=== PATIENT | female | born 1970 | race Caucasian/White ===

== ENCOUNTER 2016-12-05 17:30 | Inpatient (IN) | payer OTHER ==
[~2016-12-05] VITALS: Ht 165.1 cm; Wt 102.1 kg
[~2016-12-05 17:30] MED LIST: ABILIFY10 M1 PO; ABILIFY15 M1 PO; ALPRAZOLAM1 MG PO; AMBIEN10 M1 PO; ASPIRIN EC81 M1 PO; BENTYL20 MG PO; BUTALB-ACETAMI1 EAC1 PO; CARVEDILOL3.125 M1 PO; CARVEDILOL3.125 MG PO; CRESTOR40 M2 PO; CRESTOR40 MG PO; DILAUDID2 M1 PO; DILAUDID2 MG PO; DONNATAL1 TAB PO; FLEXERIL10 MG PO; FLUTICASON0.05 MG/A2 NAS; IMITREX50 M1 PO; IMITREX50 MG PO; INVOKANA300 M1 PO; ISOSORBIDE MONO30 M1 PO; LEVSIN-SL0.125 MG SL; LISINOPRIL20 MG PO; LISINOPRIL5 M1 PO; METHOCARBAMOL500 M1 PO; METOPROLOL SUC100 M1 PO; MOBIC15 M1 PO; MULTIPLE VITAM1 EAC2 PO; NAPROSYN375 MG PO; NAPROXEN375 M2 PO; NITRO-BID OINT0.5 GM TOP; NITROGLYCERIN0.4 MG SL; NITROSTAT0.4 M1 SL; PERCOCET 325 MG1 TA2 PO; PERCOCET 325 MG1 TA3 PO; PERCOCET 5-3251 EACH PO; PRAZOSIN HCL1 M1 PO; PRAZOSIN HCL2 M1 PO; PROAIR HFA0.09 MG/Ac INH; REGLAN10 MG PO; RISPERIDONE0.5 M1 PO; RISPERIDONE1 M1 PO; SERTRALINE HYD100 MG PO; SIMVASTATIN40 M1 PO; SKELAXIN800 M1 PO; TOPIRAMATE200 MG PO; TRAMADOL HYDROC50 MG PO; TRAMADOL50 MG PO; ULTRAM50 M1 PO; VENLAFAXINE H37.5 MG PO; VENLAFAXINE HYD75 M1 PO; VICODIN 5-3001 EACH PO; VICODIN5-300 PO; XANAX0.25 M1 PO; ZOFRAN ODT4 M1 SL; ZOFRAN ODT4 MG SL; ZOLOFT100 M1 PO; ZOLPIDEM TARTRA10 MG PO
--- NOTE | 2016-12-05 17:56 | NUR ---
Informed waiting has been performed.
--- NOTE | 2016-12-05 17:56 | NUR ---
TRIAGE: PT TO ER WITH C/C SHARP HEAD PAIN AND NUMBNESS TO L SIDE OF BODY WITH L FACIAL DROOP. REPORTS NUMBNESS/TINGLING TO ENTIRE L SIDE OF BODY. STATES HAD SIMILIAR EPISODE SEPTEMBER 2016 BUT WAS ON THE RIGHT SIDE OF HER BODY, WAS ADMITTED TO [facility] AT THAT. WAS ADVISED BY MD'S THAT IT MIGHT BE A COMPLICATED MIGRAINE AND TO RETURN TO ER IF EVER HAPPENED AGAIN. PT CURRENTLY ON DAY 27 OF 30 DAY HALTER MONITOR FOR ?ARRHYTHMIA. ALSO COMPLAINS OF FEELING DIZZY AND LIGHTHEADED. PT WITH UNEQUAL SMILE AND WEAK L HAND GRASP AT TRIAGE. NO DRIFT WHEN HOLDING ARMS OUT. EKG DONE IN [facility] PRIOR TO TRIAGE AND SHOWN TO DR GARSIA.
--- NOTE | 2016-12-05 17:57 | NUR ---
PT BROUGHT FROM TRIAGE DIRECT TO [facility] RM 6 DISCUSSED PATIENT WITH BOTH JOSEP MINOR AND DR GARSIA
--- NOTE | 2016-12-05 18:16 | ED NEURO DEFICIT/STROKE ---
History of Present Illness General Chief Complaint: General Adult Stated Complaint: JIN/DIZZNESS Source: patient, family Exam Limitations: no limitations Vital Signs & Intake/Output Vital Signs & Intake/Output Vital Signs Date Time Temp Pulse Resp B/P Pulse O2 O2 Flow FiO2 Ox Delivery Rate 12/05 2019 96.7 69 18 128/67 98 Room Air 12/05 1748 98.1 81 20 96/64 98 Room Air Allergies Coded Allergies: No Known Allergies (08/06/16) Reconcile Medications Alprazolam (Xanax) 0.25 MG TABLET 1 TAB PO BID PRN anxiety (Reported) Aripiprazole (Abilify) 15 MG TABLET 1 TAB PO QAM MENTAL HEALTH (Reported) Aspirin (Ecotrin) 81 MG TABLET.DR 1 TAB PO DAILY HEART HEALTH (Reported) Isosorbide Mononitrate (Isosorbide Mononitrate ER) 30 MG TAB.ER.24H 1 TAB PO DAILY HEART (Reported) Lisinopril 5 MG TABLET 1 TAB PO DAILY Hypertension/CHF Metoprolol Succinate (Metoprolol Succinate XL) [address] 1 TAB PO DAILY blood pressure Multivitamin (Multiple Vitamins) 1 EACH TABLET 1 TAB PO DAILY SUPPLEMENT ( Reported) Naproxen 375 MG TABLET 1 TAB PO PRN PAIN (Reported) with food Nitroglycerin (Nitrostat) 0.4 MG TAB.SUBL 1 TAB SL AD PRN CHEST PAIN ( Reported) 1st sign of attack; may repeat every 5 minutes until relief; if pain persists after 3 tablets in 15 minutes, prompt medical att Prazosin HCl 2 MG CAPSULE 2 CAP PO QPM SLEEP (Reported) Propranolol HCl 20 MG TABLET 1 TAB PO TID PRN ANXIETY (Reported) Rosuvastatin Calcium (Crestor) 40 MG TABLET 1 TAB PO DAILY CHOLESTEROL ( Reported) Sertraline HCl (Zoloft) 100 MG TABLET 2 TAB PO DAILY DEPRESSION (Reported) Sumatriptan Succinate (Imitrex) 50 MG TABLET 1 TAB PO AD Migraine take one tab at the onset of the headache Take a second tab 2 hrs After if migraine persists and call PCP/neurologist Topiramate 200 MG TABLET 1 TAB PO QPM MIGRAINES (Reported) Zolpidem Tartrate 10 MG TAB 1 TAB PO QPM SLEEP (Reported) Triage Note: TRIAGE: PT TO ER WITH C/C SHARP HEAD PAIN AND NUMBNESS TO L SIDE OF BODY WITH L FACIAL DROOP. REPORTS NUMBNESS/TINGLING TO ENTIRE L SIDE OF BODY. STATES HAD SIMILIAR EPISODE SEPTEMBER 2016 BUT WAS ON THE RIGHT SIDE OF HER BODY, WAS ADMITTED TO [facility] AT THAT. WAS ADVISED BY MD'S THAT IT MIGHT BE A COMPLICATED MIGRAINE AND TO RETURN TO ER IF EVER HAPPENED AGAIN. PT CURRENTLY ON DAY 27 OF 30 DAY HALTER MONITOR FOR ?ARRHYTHMIA. ALSO COMPLAINS OF FEELING DIZZY AND LIGHTHEADED. PT WITH UNEQUAL SMILE AND WEAK L HAND GRASP AT TRIAGE. NO DRIFT WHEN HOLDING ARMS OUT. EKG DONE IN [facility] PRIOR TO TRIAGE AND SHOWN TO DR JAMA. Triage Nurses Notes Reviewed? yes : No Patient currently breastfeeds: No HPI: 46-year-old female arrived to triage to room 6 for evaluation of a left-sided weakness, left-sided facial droop with a headache. Chevy reports that around 2:30 3:00 this afternoon she started with left sided facial droop that lasted about a half an hour and then she developed sharp migraine type pain to the left side of her head. Then she developed left sided tingling arm and leg that has continued since her admission here in the emergency department. She does also feel some weakness to that side. She was able to ambulate with no issues. She does have nausea but no vomiting, photophobia and phonophobia like typical migraines that she has had in the past. She has a history of the same but occurred to the right side of her body. Never seen a neurologist to determine if she had stroke, TIA or complex migraines. Chevy has a history of hypertension, hyperlipidemia, CAD status post bypass surgery 1. She is wearing a 30 day event monitor to evaluate for paroxysmal atrial fibrillation to possibly contributing to event that happened last year. She denies any chest pain, shortness of breath, lightheaded, or palpitations but does have some dizziness. (IVÁN STANFORD APRN) Past History Travel History Traveled to [place] past 21 day No Medical History Any Pertinent Medical History? 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 FATHER FH: CAD (coronary artery disease) FH: CHF (congestive heart failure) FH: diabetes mellitus FH: myocardial infarction Relation not specified for: FH: myocardial infarction Hx Contributory? No (IVÁN STANFORD APRN) Review of Systems Review of Systems Constitutional: Denies: no symptoms. EENTM: Denies: no symptoms. Respiratory: Denies: no symptoms. Cardiovascular: Denies: no symptoms. GI: Denies: no symptoms. Genitourinary: Denies: no symptoms. Musculoskeletal: Denies: no symptoms. Skin: Denies: no symptoms. Neurological/Psychological: Reports: see HPI, ataxia, headache, numbness, paresthesia. Hematologic/Endocrine: Denies: no symptoms. Immunologic/Allergic: Denies: no symptoms. (IVÁN STANFORD APRN) Physical Exam Physical Exam General Appearance: well developed/nourished, no apparent distress, alert, awake , comfortable Head: atraumatic, normal appearance Eyes: Bilateral: normal appearance, PERRL, EOMI. Ears, Nose, Throat: normal ENT inspection, moist mucous membrane, hearing grossly normal Neck: normal inspection, supple, full range of motion Respiratory: normal breath sounds, chest non-tender, no respiratory distress Cardiovascular: regular rate/rhythm Peripheral Pulses: 2+ carotid (R), 2+ carotid (L), 2+ radial (R), 2+ radial (L) Gastrointestinal: normal bowel sounds, soft, non-tender Back: normal inspection, normal range of motion Psychiatric: awake, alert, oriented x 3 Cranial Nerves: normal hearing, normal speech, PERRL, facial droop Coordination/Gait: normal finger to nose, normal gait Motor/Sensory: motor deficit (LEFT) Skin: intact, normal color, warm/dry Core Measures CVA/TIA Diagnosis: Yes NIH Stroke Scale: Total 1 Date Last Known Well: 12/05/16 Time Last Known Well: 1500 Neurological S/S of CVA: Facial Hemiparesis, Weakness of Limb Symptom Start Date: 12/05/16 Symptom Start Time: 1500 Comment: sympomts resolving spoke to Dr. Wagner- no need for TPA Severe Sepsis Present: No Septic Shock Present: No Bedside Dysphagia Screen Bedside Swallow Eval Done: Yes Result of Evaluation: Pass (HIEN CAR,IVÁN) Progress Differential Diagnosis: Jama's Palsy, electrolyte imbalance, migraine JIN, stroke Plan of Care: Orders Procedure Date/time Status Regular Diet 12/06 B Active OXYGEN SETUP (GEN) 12/05 2019 Active Saline Lock 12/05 2019 Active Admit to inpatient 12/05 2019 Active Patient Data 12/05 2019 Active Vital Signs 12/05 2019 Active Activity/Ambulation 12/05 2019 Active Code Status 12/05 2019 Active Saline Lock 12/05 180 Active Telemetry/Wound Care Technician 12/05 1805 Active TROPONIN LEVEL 12/05 180 Complete COMPREHENSIVE METABOLIC PANEL 12/05 180 Complete CBC WITHOUT DIFFERENTIAL 12/05 1805 Complete EKG 12/05 1732 Active Laboratory Tests 12/05/16 1843: Anion Gap 16, Estimated GFR > 60, BUN/Creatinine Ratio 21.4, Glucose 92, Calcium 9.4, Total Bilirubin 0.4, AST 20, ALT 26, Alkaline Phosphatase 68, Troponin I < 0.01, Total Protein 7.2, Albumin 4.1, Globulin 3.1, Albumin/Globulin Ratio 1.3, CBC w Diff NO MAN DIFF REQ, RBC 4.36, MCV 87.3, MCH 29.1, RDW 14.5, MPV 7.2 L, Gran % 71.3, Lymphocytes % 18.8 L, Monocytes % 5.4, Eosinophils % 4.4, Basophils % 0.1, Absolute Granulocytes 6.4, Absolute Lymphocytes 1.7, Absolute Monocytes 0.5, Absolute Eosinophils 0.4, Absolute Basophils 0, PUBS MCHC 33.4 Diagnostic Imaging: Viewed by Me: CT Scan. Discussed w/RAD: CT Scan. Initial ED EKG: NORMAL SINUS RHYTHM, NONSPECIFIC st-t WAVE CHANGES, t-WAVE INVERSIONS NOTED IN ANTERIOR SEPTAL Prior EKG: changed Comments: PATIENT: CHEVY LEÓN PRESENT AGE: 46 PATIENT ACCOUNT NO: [id number] : 72 LOCATION: [facility] ORDERING PHYSICIAN: IVÁN STANFORD APRN SERVICE DATE: 12/05/16 EXAM TYPE: CAT - CT HEAD WO IV CONTRAST EXAMINATION: CT HEAD WITHOUT CONTRAST CLINICAL INFORMATION: Left-sided weakness. COMPARISON: Head CT 10/09/2016. TECHNIQUE: Contiguous axial imaging was performed from the skull base to vertex without intravenous administration of contrast. DLP: 672 mGy-cm. FINDINGS: There is no evidence of acute intracranial hemorrhage or territorial infarction. No abnormal mass effect or midline shift is seen. Gonzalez to white matter differentiation is well preserved. No extra-axial fluid collections are identified. The ventricles are normal in size. There is no new abnormal attenuation within the brain parenchyma. The osseous structures and soft tissues are normal. The mastoid air cells are well aerated. Mild paranasal sinus mucosal thickening. IMPRESSION: No acute intracranial pathology. 8 PM spoke to neurology Dr. Wagner who will evaluate the patient tomorrow in the hospital. He agrees that she wasn't a TPA candidate possibility a complex migraine but TIA cannot be excluded based on cardiovascular history. Aspirin 325 mg 1 given and she will be admitted to telemetry. Call made to hospital list 2 waiting for call back. [address] Trinh and MOD, admitted to tele for TIA, ECG changes. Patient has been aware of admission. Imitrex times one will be given for continuance of headache. No change with Toradol, Benadryl and Zofran. Nausea gone photophobia gone. case has been discussed with Dr. Jama and Dr. tavarez. (IVÁN STANFORD APRN) Departure Departure Time of Disposition: 2016 Disposition: STILL A PATIENT Condition: Stable Clinical Impression Primary Impression: TIA (transient ischemic attack) Qualifiers: Transient cerebral ischemia type: other Qualified Code: G45.8 - Other transient cerebral ischemic attacks and related syndromes Secondary Impressions: Acute electrocardiogram changes Referrals: ASHLY LIVE,ARIEL Marley (PCP/Family) Departure Forms: Customer Survey General Discharge Information Admission Note Spoke With: INDIO TRINH MD Documentation of Exam: Documentation of any treatments & extenuating circumstances including Concerns Regarding Discharge (functional status, medication knowledge or non-compliance, living conditions, etc.) that warrant an admission rather than observation: admitted to tele for TIA, ECG changes neuro and cardiology consults. Called neuro already aspirin 1 given swallow eval passed. (MACI STANFORD APRN PA/MAIL PROCESSING EQUIPMENT MECHANIC Co-Sign Statement Statement: ED Attending supervision documentation- x I saw and evaluated the patient. I have also reviewed all the pertinent lab results and diagnostic results. I agree with the findings and the plan of care as documented in the PA's/MAIL PROCESSING EQUIPMENT MECHANIC's documentation. [] I have reviewed the ED Record and agree with the PA's/MAIL PROCESSING EQUIPMENT MECHANIC's documentation. [] Additions or exceptions (if any) to the PAs/MAIL PROCESSING EQUIPMENT MECHANIC's note and plan are summarized below: [] (CHAD LIVE,LUPIS)
--- NOTE | 2016-12-05 18:36 | NUR ---
PT RECIEVED TO ROOM 6. SEEN BY IVÁN SMITH. CURRENTLY IN CT SCAN
[2016-12-05] MEDS ORDERED: PROPRANOLOL HCL20 M1 PO (18:42)
--- NOTE | 2016-12-05 18:43 | CT SCAN REPORT ---
EXAMINATION: CT HEAD WITHOUT CONTRAST CLINICAL INFORMATION: Left-sided weakness. COMPARISON: Head CT 10/09/2016. TECHNIQUE: Contiguous axial imaging was performed from the skull base to vertex without intravenous administration of contrast. DLP: 672 mGy-cm. FINDINGS: There is no evidence of acute intracranial hemorrhage or territorial infarction. No abnormal mass effect or midline shift is seen. Gonzalez to white matter differentiation is well preserved. No extra-axial fluid collections are identified. The ventricles are normal in size. There is no new abnormal attenuation within the brain parenchyma. The osseous structures and soft tissues are normal. The mastoid air cells are well aerated. Mild paranasal sinus mucosal thickening. IMPRESSION: No acute intracranial pathology.
--- NOTE | 2016-12-05 18:52 | NUR ---
LABS DRAWN AND SENT SST, LAV, BLUE, AND HEBERT SENT
--- NOTE | 2016-12-05 18:56 | NUR ---
RETURNED FROM CT SCAN. LABS DRAWN. IV PLACED AND MEDS AND IVF BOLUS GIVEN,.IVÁN [employer] DIRECTOR IN TO DISCUSS RESULTS OF CT SCAN. PT CONTINUES TO HAVE HEAD ACHE AND SLIGHT RIGHT SIDE WEAKNESS AND NAUSEA
[2016-12-05 19:07] LABS: ABSOLUTE BASOPHIL COUNT 0 /CUMM (0.0-0.2); ABSOLUTE EOSINOPHIL COUNT 0.4 /CUMM (0.0-0.7); ABSOLUTE GRANULOCYTE CT 6.4 /CUMM (1.4-6.5); ABSOLUTE LYMPH COUNT 1.7 /CUMM (1.2-3.4); ABSOLUTE MONOCYTE COUNT 0.5 /CUMM (0.10-0.60); BASOPHIL % 0.1 % (0.0-2.0); EOSINOPHIL % 4.4 % (0-5); GRANULOCYTE % 71.3 % (42.2-75.2); HEMATOCRIT 38.1 % (37-47); MEAN CORPUSCULAR HGB 29.1 PG (27.0-31.0); MEAN CORPUSCULAR HGB CONC 33.4 G/DL (33.0-37.0); MEAN CORPUSCULAR VOLUME 87.3 FL (81.0-99.0); MEAN PLATELET VOLUME 7.2 FL (7.4-10.4); PLATELET COUNT 286 /CUMM (130-400); RBC DISTRIBUTION WIDTH 14.5 % (11.5-14.5); RED BLOOD CELL CT 4.36 /CUMM (4.20-5.40)
--- NOTE | 2016-12-05 20:20 | NUR ---
PT SEEN BY IVÁN SMITH AND PLAN TO ADMIT TO HOSPITAL DISCUSSED. PT REMAINS WITH SOME SLIGHTLY SLOW, SLURRED SPEECH AND RIGHT FACE TINGLING. GRILL PREP COOK EQUAL AND LEG STRENGHT EQUAL. SMILE EQUAL.ALERT AND ORIENTED. CONTINUES TO COMPLAIN OF HEADACHE.STATES TORADOL HELPED HEAD ACHE FOR SHORT WHILE BUT IT HAS RETURNED.
--- NOTE | 2016-12-05 21:03 | NUR ---
PT GIVEN ASPRIN ORDERED, GIVEN IMITREX FOR HEADACHE AND GIVEN ZOFRAN FOR NAUSEA. PT SITTING UP ON STRETCHER, USING CELL PHONE. HSB AT BEDSIDE
--- NOTE | 2016-12-05 21:48 | NUR ---
PT HAS BED 188-1
--- NOTE | 2016-12-05 22:14 | History & Physical ---
JULIUS LIVE,[facility] 12/05/16 2213: General Information and HPI MD Statement: I have seen and personally examined CHEVY LEÓN and documented this H&P. The patient is a 46 year old F who presented with a patient stated chief complaint of left sided weakness and headache. Source of Information: family Exam Limitations: no limitations History of Present Illness: This is a 46-year-old female with past medical history of CAD status post four- vessel CABG 2000 WOO to LAD, PTSD, attention, PTSD, agoraphobia, history of frequent episodes of complex migraine, and a recent admission to [facility] in September 2016 for right-sided weakness and headache, presents to the ED for evaluation of left-sided weakness, and facial droop. Patient states that around 2-3pm while seated, she developed a unilateral right- sided headache which was then accompanied by left-sided facial droopiness, and slurred speech. Patient in reports a similar neurological episode in September, which affected the right side rather than the left. Patient states that her left facial droop and slurred speech was noticeable to his son. She also reports tingling sensation on left side and numbness. Pt continued to have this neurological complaints from time onset of around 2-3pm till 5pm when she was examined at the ED. Patient denied any loss of consciousness, seizure-like activities, postictal confusion, bladder or urinary incontinence. Patient denies any chest pain palpitation, fever, chills, any recent head injury , abdominal pain, or dysuria. Of note, after last admission, patient was suppose to f/u with neurology for evaluation of her complex migraine. She states that due to misplacing the neurologist refferal contact information, she was not able to make appointment . She did follow-up with cardiology and was given a 30 day Holter monitor (she is on day 27). Patient also reports using sumatriptan for migraines which was prescribed by primary care physician, she notes that since September she's had about 10 episodes of migraine, which each episode being alleviated by 2 doses of the sumatriptan. Allergies/Medications Allergies: Coded Allergies: No Known Allergies (08/06/16) Past History Travel History Traveled to [place] past 21 day No Medical History Neurological: migraine, ?COMPLICATED MIGRAINES EENT: NONE Cardiovascular: CAD, hypertension, hyperlipidemia, myocardial infarction Respiratory: asthma Gastrointestinal: NONE Hepatic: cholelithiasis Renal: NONE Musculoskeletal: NONE Psychiatric: anxiety, depression, PTSD Endocrine: NONE Blood Disorders: NONE Cancer(s): NONE NEUROLOGIST/Reproductive: endometriosis History of MRSA: No History of VRE: No History of CDIFF: No Surgical History Surgical History: appendectomy, CABG, cholecystectomy, removal of sinus polyps, hysterectomy and oopherectomy of right ovary Past Family/Social History Family History Relations & Conditions if any MOTHER FH: myocardial infarction, Onset: at 53. FATHER FH: CAD (coronary artery disease) FH: CHF (congestive heart failure) FH: diabetes mellitus FH: myocardial infarction Relation not specified for: FH: myocardial infarction Psychosocial History Who Do You Live With? spouse, child Services at Home: None Primary Language: Haitian ETOH Use: occasional use Illicit Drug Use: denies illicit drug use Functional Ability ADLs Independent: dressing, eating, toileting, bathing. Ambulation: independent IADLs Independent: shopping, housework, finances, food prep, telephone, transportation , medication admin. Review of Systems Review of Systems Constitutional: Denies: diaphoresis, fever, malaise. EENTM: Reports: visual changes. Denies: eye tearing, icterus. Cardiovascular: Denies: chest pain, edema, orthopena, palpitations, peripheral edema, syncope. Respiratory: Denies: cough, hemoptysis, short of breath, sputum production. GI: Denies: bloating, diarrhea, distention. Genitourinary: Denies: dysuria, hematuria, hesitation. Musculoskeletal: Denies: gout, joint pain, joint swelling, muscle pain, muscle stiffness. Skin: Denies: change in hair/nails, erythema, jaundice. Neurological/Psychological: Denies: depressed, dementia, emotional problems. Exam & Diagnostic Data Last 24 Hrs of Vital Signs/I&O Vital Signs Date Time Temp Pulse Resp B/P Pulse O2 O2 Flow FiO2 Ox Delivery Rate 12/05 2257 97.6 78 20 122/68 97 Room Air 12/05 2235 77 16 134/780 97 Room Air 12/05 2103 Room Air 12/05 2019 96.7 69 18 128/67 98 Room Air 12/05 1748 98.1 81 20 96/64 98 Room Air Physical Exam General Appearance Alert, Oriented X3, Cooperative Skin No Rashes, No Breakdown, No Significant Lesion HEENT Atraumatic, PERRLA, EOMI, Mucous Membr. moist/pink Neck Supple, No JVD, No thryomegaly, +2 Carotid Pulse wo Bruit Lymphatic Cervical nl Cardiovascular Regular Rate, Normal S1, Normal S2 Lungs Clear to Auscultation, Normal Air Movement Abdomen Normal Bowel Sounds, Soft, No Tenderness Assessment/Plan Assessment: This a 46-year-old female with a history of TIA, complete get her migraines, CAD requiring CABG, PTSD presents with left sided neurological deficits that were preceded by right-sided unilateral headache. Impression * Left-sided weakness. The episodes were transient, as later when patient was examined was not found to have any neurological deficit. In the setting of a patient with a history of complex migraine this could possibly be a manifestation of her migraines. The transient nature of her symptoms with no CT findings of ischemic events could aslo possibly suggests TIA and less likely a CVA. Partial Seizures could also present with left-sided weakness. However, unlikely as patient did not manifest any other seizure symptoms. Pt does have an extensive cardiac history, it could be possible patientt has some arrythmias that exposes patient to increased risk for TIA/CVA. Patient already has a holter monitor for 27 days which will require assesmen by cardiology. Plan * Admit to telemetry for close cardiac monitoring * Neurochecks every 4h * Serial troponins and EKG * Neurology consult * cardiac consult * We'll continue home sumatriptan as needed for abortive therapy * Zofran every 4-6 hours for nausea * Continue statin * Fasting lipid As Ranked By This Provider Problem List: 1. Migraine 2. TIA (transient ischemic attack) Qualifiers Transient cerebral ischemia type: other Qualified Code: G45.8 - Other transient cerebral ischemic attacks and related syndromes Core Measures/Miscellaneous Acute Coronary Syndrome ACS Diagnosis: No Cerebrovascular Accident CVA/TIA Diagnosis: Yes Date Last Known Well: 12/05/16 Time Last Known Well: 1500 Neurological S/S of CVA: Facial Hemiparesis, Weakness of Limb Symptom Start Date: 12/05/16 Symptom Start Time: 1500 Bedside Swallow Eval Done: Yes Result of Evaluation: Pass LDL Assessed Within 24 Hours: Yes Currently on Statin: Yes Congestive Heart Failure CHF Diagnosis: No Venous Thromboembolism VTE Risk Factors: Age > 40 VTE Prophylaxis Ordered Inpt: Mechanical (ALPS/TEDS) [facility] prophylaxis d/t: No contraindications No VTE Pharm Prophylaxis d/t: Medical contraindication VTE Diagnosis: No VTE Type: NONE VTE Confirmed by (Test): NONE Severe Sepsis Severe Sepsis Present: No Septic Shock Septic Shock Present: No Miscellaneous Documentation Attending Case Discussed With: GAYATHRI LIVE[facility] Primary Care Physician: ASHLY LIVE,ARIEL Marley Patient sees these Specialists nitriles lab technician neurologist Level of Patient Care: Telemetry [facility] 12[facility]05[facility]16 2237: Attending MD Review Statement Attending Statement Attending MD Statement: examined this patient, discuss w/resident/PA/JUNIOR ART DIRECTOR, agreed w/resident/PA/JUNIOR ART DIRECTOR Attending Assessment/Plan: 46 yo morbidly obese F with h/o HTN, CAD s/p VA s/p single vessel bypass, depression, migraine, with recent admission in Sep 2016 for complex migraine with transient neuro deficits, is here with similar episode of right sided headache followed by left facial droop, slurred speech, left sided tingling/ numbness and blurring of vision that seems to have resolved. Patient reports, she did not follow up with [facility] or [facility] neurology for possible botox inj. She does report last migraine episode was 2 days prior that resolved with Imitrex. Of note, she has a 30-day Holter monitor (3 days remaining) placed by Dr. Goff. VSS. Neuro exam nonfocal. Labs unremarkable. CT head neg. EKG: TWI in V2-V6. Trop neg. 1. Complicated migraine with transient neurological deficits, however cannot rule out TIA. Neurochecks, no need to repeat carotid doppler Neuro consult, migraine management with Imitrex, fioricet and zofran. 2. Acute EKG changes, patient asymptomatic. Serial EKG and troponin, obtain Echo and Cardio consult. DVT ppx Lovenox. Full code. LULA VELAZQUEZ 12/06/16 0615: General Information and HPI Allergies/Medications Home Med list Alprazolam (Xanax) 0.25 MG TABLET 1 TAB PO BID PRN anxiety (Reported) Aripiprazole (Abilify) 15 MG TABLET 1 TAB PO QAM MENTAL HEALTH (Reported) Aspirin (Ecotrin) 81 MG TABLET.DR 1 TAB PO DAILY HEART HEALTH (Reported) Ibuprofen (Advil) 200 MG CAPSULE 3 TAB PO DAILY PRN SEVERE PAIN Lisinopril 5 MG TABLET 1 TAB PO DAILY Hypertension/CHF Magnesium 200 MG TABLET 1 TAB PO DAILY HEADACHE Metoprolol Succ XL (Toprol XL) 100 MG TAB.ER.24H 1 TAB PO BID MIGRAINE Multivitamin (Multiple Vitamins) 1 EACH TABLET 1 TAB PO DAILY SUPPLEMENT ( Reported) Nitroglycerin (Nitrostat) 0.4 MG TAB.SUBL 1 TAB SL AD PRN CHEST PAIN ( Reported) 1st sign of attack; may repeat every 5 minutes until relief; if pain persists after 3 tablets in 15 minutes, prompt medical att Omeprazole 20 MG CAPSULE.DR 1 CAP PO SI acid reflux Take one tablet prior to taking the ibuprofen tablet. Oxycodone HCl/Acetaminophen (Percocet 10-325 MG Tablet) 10 MG-325 MG TABLET 1 TAB PO 4 TIMES/DAY severe pain Prazosin HCl 2 MG CAPSULE 2 CAP PO QPM SLEEP (Reported) Rosuvastatin Calcium (Crestor) 40 MG TABLET 1 TAB PO DAILY CHOLESTEROL ( Reported) Sertraline HCl (Zoloft) 100 MG TABLET 2 TAB PO DAILY DEPRESSION (Reported) Sumatriptan Succinate (Imitrex) 50 MG TABLET 1 TAB PO AD Migraine take one tab at the onset of the headache Take a second tab 2 hrs After if migraine persists and call PCP/neurologist Topiramate (Qudexy XR) 150 MG CAP.SPR.24 1 TAB PO BID MIGRAINE Ubidecarenone (Coq-10) 100 MG CAPSULE 1 CAP PO DAILY SUPPLEMENT Zolpidem Tartrate 10 MG TAB 1 TAB PO QPM SLEEP (Reported) Resident Review Statement Resident Statement: examined this patient, discussed with web marketing intern, agreed with web marketing intern, discussed with family, discussed with nursing, reviewed images Other Findings: Mrs León is a 46-year-old lady with a PMH of HTN, CAD, VA 2 (2000) , s/p single vessel bypass surgery for LAD occlusion, depression, endometriosis, migraines and anxiety who presents with complaints of new onset neurological deficits. She was last admitted to [facility] in September 2016, treated for, gait of migraine with neurologic deficits, started on Imitrex and recommendations for follow-up with Dr. Zelaya for possible Botox therapy. Unfortunately she has been unable to follow up with a neurologist since that was prescribed approximately 20 pills of Imitrex which she has used on 10 different occasions for severe migraines. This afternoon at approximately 2:30 PM she had sudden onset of right sided headache she describes as a sledgehammer sensation, left eye blurred vision that lasted approximately 30 minutes, followed by left-sided facial drooping, left upper and lower extremity numbness/tingling that resolved some time around 7:30 while in the ED. She had followed up with her nitriles lab technician Dr. Goff and has had a very difficult monitor which she takes back in 3 days. ROS: (+) Dizziness, rapid breathing, slurred speech, nausea during this time. She denies any fevers, chills, choking sensation, palpitations, chest pain, vomiting, abdominal pain loss of bowel/bladder control. VS: BP 96/64, HR 81, RR 20, SPO2 98% on RA, T 98.1 PE: AAO 3, CN 3-12 intact, hypersensitivity to touch of left face, strength 5/5 bilateral upper and lower extremities, sensation intact bilateral lower extremities, negative Babinski. RRR, normal S1/S2. Normal bowel sounds, nontender Pertinent labs: WBC 9.0, H&H 12.7/30.1, sodium 144, potassium 3.8, BUN/Cr 15/0.7 , glucose 92 CT head: No acute intracranial pathology Problem list: 1. Complicated migraine 2. TIA/CVA 3. CAD s/p VA: Currently on a Holter monitor Plan: * Admit to telemetry for continuous cardiac monitoring * Seria EKG/trop * AM cardiology consult for holter monitor interrogation * Neurology consult in the AM * Repeat Echo * Lipid panel in the AM * Continue all her home cardiac medications * DVT prophylaxis: ALPs and transition to lovenox in the AM if no concern for intracranial bleed * Code status: Full code
--- NOTE | 2016-12-05 22:20 | NUR ---
REPORT CALLED TO DANAE ON TELE FLOOR. HOUSE STAFF HERE TO EVAL PT. WILL TRANSFER TO TELE WHEN HOUSE STAFF DONE SEEING PT
--- NOTE | 2016-12-05 22:35 | Admission Certification ---
Admission Certification Certification Statement - As attending physician, I certify that at the time of - admission, based on clinical presentation, severity of - symptoms, need for further diagnostic testing and - therapeutic interventions, and risk of adverse outcomes - without in-hospital treatment, in my clinical assessment, - this patient requires an acute hospital stay for a minimum - of two nights or longer. I have also considered psychsocial - factors such as support system, advanced age, financial - issues, cognitive issues, and failed out-patient treatments, - past re-admission history, safety of patient, and lack of - compliance as applicable. Specific rationale supporting this admission is: Complicated migraine vs. TIA. Acute EKG changes.
[2016-12-05 22:57] VITALS: BP 122/68
[2016-12-06 06:57] LABS: ABSOLUTE BASOPHIL COUNT 0 /CUMM (0.0-0.2); ABSOLUTE EOSINOPHIL COUNT 0.5 /CUMM (0.0-0.7); ABSOLUTE LYMPH COUNT 1.8 /CUMM (1.2-3.4); ABSOLUTE MONOCYTE COUNT 0.5 /CUMM (0.10-0.60); BASOPHIL % 0.6 % (0.0-2.0); EOSINOPHIL % 5.9 % (0-5); HEMATOCRIT 35.2 % (37-47); MEAN CORPUSCULAR HGB 29.6 PG (27.0-31.0); MEAN CORPUSCULAR HGB CONC 33.8 G/DL (33.0-37.0); MEAN CORPUSCULAR VOLUME 87.7 FL (81.0-99.0); MEAN PLATELET VOLUME 7.4 FL (7.4-10.4); PLATELET COUNT 249 /CUMM (130-400); RBC DISTRIBUTION WIDTH 14.2 % (11.5-14.5); RED BLOOD CELL CT 4.01 /CUMM (4.20-5.40); WHITE BLOOD CELL COUNT 7.8 /CUMM (4.8-10.8)
[2016-12-06 08:08] VITALS: BP 102/62
--- NOTE | 2016-12-06 12:38 | PN- Att Addend ---
Attending Addendum Attending Brief Note 46F [facility] CAD s/p 4v-CABG in 2000, PTSD, agoraphobia, history of frequent episodes of complex migraine presenting with left facial weakness and numbness with severe headache in the setting of complex migraine. Patient reports 10/10 headache today that improved slightly with Percocet and allowed her to sleep, but now is back to 10//10. She denies focal neurological symptoms. Her neuro exam is normal without weakness or decreased sensation in face or extremities. Cranial nerve exam intact. Laboratory Tests 12/06/16 0615: Anion Gap 12, Estimated GFR > 60, BUN/Creatinine Ratio 17.1, Troponin I < 0.01, Triglycerides 145, Cholesterol 128, LDL Cholesterol, Calc 65, HDL Cholesterol 34 L, Cholesterol/HDL Ratio 4, CBC w Diff NO MAN DIFF REQ, RBC 4.01 L, MCV 87.7, MCH 29.6, RDW 14.2, MPV 7.4, Gran % 64.0, Lymphocytes % 23.3, Monocytes % 6.2, Eosinophils % 5.9 H, Basophils % 0.6, Absolute Granulocytes 5.0, Absolute Lymphocytes 1.8, Absolute Monocytes 0.5, Absolute Eosinophils 0.5, Absolute Basophils 0, PUBS MCHC 33.8 12/06/16 0010: Troponin I < 0.01 12/05/16 1843: Anion Gap 16, Estimated GFR > 60, BUN/Creatinine Ratio 21.4, Glucose 92, Calcium 9.4, Total Bilirubin 0.4, AST 20, ALT 26, Alkaline Phosphatase 68, Troponin I < 0.01, Total Protein 7.2, Albumin 4.1, Globulin 3.1, Albumin/Globulin Ratio 1.3, CBC w Diff NO MAN DIFF REQ, RBC 4.36, MCV 87.3, MCH 29.1, RDW 14.5, MPV 7.2 L, Gran % 71.3, Lymphocytes % 18.8 L, Monocytes % 5.4, Eosinophils % 4.4, Basophils % 0.1, Absolute Granulocytes 6.4, Absolute Lymphocytes 1.7, Absolute Monocytes 0.5, Absolute Eosinophils 0.4, Absolute Basophils 0, PUBS MCHC 33.4 Vital Signs Date Time Temp Pulse Resp B/P Pulse O2 O2 Flow FiO2 Ox Delivery Rate 12/06 1008 64 110/60 12/06 1008 110/60 12/06 1008 64 110/62 12/06 0808 97.7 60 20 102/62 96 Room Air Intake & Output 12/06 1600 Intake Total 300 Output Total Balance 300 Intake, Oral 300 Plan - Continue to monitor on telemetry for 24 hours, can be removed from tele tomorrow morning if no events - Give Toradol 30mg IV - GIve Reglan 10mg IV - Start home Imitrex - Neurology consult - Neuro checks, if new neurological deficit then obtain MRI - Continue home medications - DVT PPx - Anticipated discharge tomorrow if headaches improve
--- NOTE | 2016-12-06 14:42 | Cons- Neurology ---
General Information and HPI Consulting Request Date of Consult: 12/06/16 Requested By: GAYATHRI LIVE,INDIO Reason for Consult: Headache and left side weakness Source of Information: patient, old records Exam Limitations: no limitations History of Present Illness: 46 / F admitted due to onset of a unilateral headache which progressed steadily in severity,throbbing in quality, with nausea, photophobia and right facial weakness. there was associated "heaviness" and numbness in the right arm as well. Peripheral very similar presentation in September except the opposite side was affected. MRI at that time said to have been negative for stroke or any acute change. The patient has vascular risk factors ride in the past history below. Long-standing migraines now occurring about twice weekly despite treatment. These are generally holo-cranial throbbing with nausea and photophobia and sonophobia. 2 Imitrex (50 MG tabs) we'll provide excellent relief within an hour or so on an estimated 7 of 10 attacks. The remainder of headaches persist all day and are incapacitating rated No history of familial hemiplegic migraine. No migraines in first-degree relatives, cousins to have migraine of uncertain type. Allergies/Medications Allergies: Coded Allergies: No Known Allergies (08/06/16) Home Med List: Alprazolam (Xanax) 0.25 MG TABLET 1 TAB PO BID PRN anxiety (Reported) Aripiprazole (Abilify) 15 MG TABLET 1 TAB PO QAM MENTAL HEALTH (Reported) Aspirin (Ecotrin) 81 MG TABLET.DR 1 TAB PO DAILY HEART HEALTH (Reported) Isosorbide Mononitrate (Isosorbide Mononitrate ER) 30 MG TAB.ER.24H 1 TAB PO DAILY HEART (Reported) Lisinopril 5 MG TABLET 1 TAB PO DAILY Hypertension/CHF Metoprolol Succinate (Metoprolol Succinate XL) [address] 1 TAB PO DAILY blood pressure Multivitamin (Multiple Vitamins) 1 EACH TABLET 1 TAB PO DAILY SUPPLEMENT ( Reported) Naproxen 375 MG TABLET 1 TAB PO PRN PAIN (Reported) with food Nitroglycerin (Nitrostat) 0.4 MG TAB.SUBL 1 TAB SL AD PRN CHEST PAIN ( Reported) 1st sign of attack; may repeat every 5 minutes until relief; if pain persists after 3 tablets in 15 minutes, prompt medical att Prazosin HCl 2 MG CAPSULE 2 CAP PO QPM SLEEP (Reported) Propranolol HCl 20 MG TABLET 1 TAB PO TID PRN ANXIETY (Reported) Rosuvastatin Calcium (Crestor) 40 MG TABLET 1 TAB PO DAILY CHOLESTEROL ( Reported) Sertraline HCl (Zoloft) 100 MG TABLET 2 TAB PO DAILY DEPRESSION (Reported) Sumatriptan Succinate (Imitrex) 50 MG TABLET 1 TAB PO AD Migraine take one tab at the onset of the headache Take a second tab 2 hrs After if migraine persists and call PCP/neurologist Topiramate 200 MG TABLET 1 TAB PO QPM MIGRAINES (Reported) Zolpidem Tartrate 10 MG TAB 1 TAB PO QPM SLEEP (Reported) Current Medications: Current Medications Sig/Juan Start time Last Medication Dose Route Stop Time Status Admin Acetaminophen 650 MG Q6P PRN 12/05 2245 AC 12/06 PO 1007 Aripiprazole 15 MG QAM 12/06 1000 AC 12/06 PO 1009 Aspirin 0 .STK-MED ONE 12/05 2006 DC PO Aspirin 325 MG ONCE ONE 12/05 1945 DC 12/05 PO 12/05 194 202 Aspirin Buffered 81 MG DAILY 12/06 1000 AC 12/06 PO 1008 Atorvastatin Calcium 80 MG 1700 12/05 2345 AC 12/06 PO 0007 Diphenhydramine HCl 0 .STK-MED ONE 12/05 1846 DC .ROUTE Diphenhydramine HCl 50 MG ONCE ONE 12/05 1830 DC 12/05 IV 12/05 1831 1856 Ibuprofen 0 .STK-MED ONE 12/05 2316 DC PO Isosorbide 30 MG DAILY 12/06 1000 AC 12/06 Mononitrate PO 1008 Ketorolac 30 MG ONCE ONE 12/06 1115 DC 12/06 Tromethamine IV 12/06 1116 1158 Ketorolac 0 .STK-MED ONE 12/05 1847 DC Tromethamine .ROUTE Ketorolac 30 MG ONCE ONE 12/05 1830 DC 12/05 Tromethamine IV 12/05 1831 1856 Lisinopril 5 MG DAILY 12/06 1000 AC 12/06 PO 1008 Metoclopramide HCl 10 MG ONCE ONE 12/06 1115 DC 12/06 IV 12/06 1116 1156 Metoprolol Succinate 100 MG DAILY 12/06 1000 AC 12/06 PO 1008 Ondansetron HCl 0 .STK-MED ONE 12/05 2057 DC .ROUTE Ondansetron HCl 4 MG ONCE ONE 12/05 2044 DC 12/05 IV 12/05 2046 2100 Ondansetron HCl 0 .STK-MED ONE 12/05 1847 DC .ROUTE Ondansetron HCl 4 MG ONCE ONE 12/05 1830 DC 12/05 IV 12/05 1831 1856 Oxycodone/ 1 TAB Q6P PRN 12/05 2245 AC Acetaminophen PO Oxycodone/ 2 TAB Q6P PRN 12/05 2245 AC 12/06 Acetaminophen PO 1318 Prazosin HCl 4 MG QPM 12/05 2345 AC 12/06 PO 0007 Sertraline HCl 200 MG DAILY 12/06 1000 AC 12/06 PO 1009 Sodium Chloride 1,000 ML Q10H 12/05 2130 CAN IV Sodium Chloride 1,000 ML BOLUS ONE 12/05 1830 DC 12/05 IV 12/05 1929 1856 Sumatriptan Succinate 50 MG DAILY NEEDED PRN 12/06 1115 AC 12/06 PO 1231 Sumatriptan Succinate 6 MG ONE ONE 12/05 2014 DC 12/05 SC 12/05 2016 2100 Topiramate 200 MG QPM 12/05 2345 AC 12/06 PO 0007 Zolpidem Tartrate 10 MG AT BEDTIME 12/05 2345 CAN PO Zolpidem Tartrate 10 MG AT BEDTIME 12/05 2300 AC 12/06 PO 0007 Review of Systems Review of Systems: ROS: The patient had no constitutional complaints. Vision clear, no diplopia ENT: No vertigo or tinnitus or hearing loss Cardiac: |Chest pain and palpitations denied Respiratory: No dyspnea or wheezing GI: No abdominal pain nausea or diarrhea. 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 FATHER FH: CAD (coronary artery disease) FH: CHF (congestive heart failure) FH: diabetes mellitus FH: myocardial infarction Relation not specified for: FH: myocardial infarction Psychosocial History Where Do You Live? Home Who Do You Live With? spouse, child Services at Home: None Primary Language: Frisian Smoking Status: Former Smoker ETOH Use: occasional use Illicit Drug Use: denies illicit drug use Functional Ability ADLs Independent: dressing, eating, toileting, bathing. Ambulation: independent IADLs Independent: shopping, housework, finances, food prep, telephone, transportation , medication admin. Exam & Diagnostic Data Vital Signs and I&O Vital Signs Date Time Temp Pulse Resp B/P Pulse O2 O2 Flow FiO2 Ox Delivery Rate 12/06 1008 64 110/60 12/06 1008 110/60 12/06 1008 64 110/62 12/06 0808 97.7 60 20 102/62 96 Room Air 12/05 2257 97.6 78 20 122/68 97 Room Air 12/05 2235 77 16 134/780 97 Room Air 12/05 2104 Room Air 12/05 2020 96.7 69 18 128/67 98 Room Air 12/05 1748 98.1 81 20 96/64 98 Room Air Intake & Output 12/06 1600 12/06 0800 12/06 0000 Intake Total 385 283 8122 Output Total Balance 819 634 3481 Intake, IV 0 1000 Intake, Oral 300 650 150 Number 0 Bowel Movements Patient 225 lb Weight Physical Exam: On exam the patient appeared generally well and in no distress markedly overweight. No cardiac murmur. No peripheral edema. mild cranial tenderness Mental status: Alert, attentive, fully oriented, no language errors, recall and general fund of knowledge seem intact Funduscopic unremarkable Visual castanon full , Eye movements full without nystagmus, pupils midsize equal round and reactive to light. Facial movement normal bilaterally Facial sensation still paresthesia to light touch on left Hearing intact bilaterally Uvula elevates midline Tongue protrusion is midline Shoulder shrug symmetric Motor power and tone normal in all 4 extremities Sensation intact to primary modes Tendon reflexes normal and symmetric without pathologic signs Coordination no ataxia Gait testing deferred Last 48 Hours of Lab Results: Laboratory Tests 12/06 12/06 0615 0010 Chemistry Sodium (137 - 145 mmol/L) 141 Potassium (3.5 - 5.1 mmol/L) 3.9 Chloride (98 - 107 mmol/L) 106 Carbon Dioxide (22 - 30 mmol/L) 23 Anion Gap (5 - 16) 12 BUN (7 - 17 mg/dL) 12 Creatinine (0.5 - 1.0 mg/dL) 0.7 Estimated GFR (>60 ml/min) > 60 BUN/Creatinine Ratio (7 - 25 %) 17.1 Troponin I (< 0.11 ng/ml) < 0.01 < 0.01 Triglycerides (<150 mg/dL) 145 Cholesterol (<200 MG/DL) 128 LDL Cholesterol, Calc (65 - 129 mg/dL) 65 HDL Cholesterol (40 - 60 mg/dL) 34 L Cholesterol/HDL Ratio (0.00 - 4.23 %) 4 Hematology CBC w Diff NO MAN DIFF REQ WBC (4.8 - 10.8 /CUMM) 7.8 RBC (4.20 - 5.40 /CUMM) 4.01 L Hgb (12.0 - 16.0 G/DL) 11.9 L Hct (37 - 47 %) 35.2 L MCV (81.0 - 99.0 FL) 87.7 MCH (27.0 - 31.0 PG) 29.6 RDW (11.5 - 14.5 %) 14.2 Plt Count (130 - 400 /CUMM) 249 MPV (7.4 - 10.4 FL) 7.4 Gran % (42.2 - 75.2 %) 64.0 Lymphocytes % (20.5 - 51.1 %) 23.3 Monocytes % (1.7 - 9.3 %) 6.2 Eosinophils % (0 - 5 %) 5.9 H Basophils % (0.0 - 2.0 %) 0.6 Absolute Granulocytes (1.4 - 6.5 /CUMM) 5.0 Absolute Lymphocytes (1.2 - 3.4 /CUMM) 1.8 Absolute Monocytes (0.10 - 0.60 /CUMM) 0.5 Absolute Eosinophils (0.0 - 0.7 /CUMM) 0.5 Absolute Basophils (0.0 - 0.2 /CUMM) 0 PUBS MCHC (33.0 - 37.0 G/DL) 33.8 12/05 12/05 1843 0000 Chemistry Sodium (137 - 145 mmol/L) 144 Potassium (3.5 - 5.1 mmol/L) 3.8 Chloride (98 - 107 mmol/L) 105 Carbon Dioxide (22 - 30 mmol/L) 23 Anion Gap (5 - 16) 16 BUN (7 - 17 mg/dL) 15 Creatinine (0.5 - 1.0 mg/dL) 0.7 Estimated GFR (>60 ml/min) > 60 BUN/Creatinine Ratio (7 - 25 %) 21.4 Glucose (65 - 99 mg/dL) 92 Calcium (8.4 - 10.2 mg/dL) 9.4 Total Bilirubin (0.2 - 1.3 mg/dL) 0.4 AST (14 - 36 U/L) 20 ALT (9 - 52 U/L) 26 Alkaline Phosphatase (<127 U/L) 68 Troponin I (< 0.11 ng/ml) < 0.01 Total Protein (6.3 - 8.2 g/dL) 7.2 Albumin (3.5 - 5.0 g/dL) 4.1 Globulin (1.9 - 4.2 gm/dL) 3.1 Albumin/Globulin Ratio (1.1 - 2.2 %) 1.3 Hematology CBC w Diff NO MAN DIFF REQ WBC (4.8 - 10.8 /CUMM) 9.0 RBC (4.20 - 5.40 /CUMM) 4.36 Hgb (12.0 - 16.0 G/DL) 12.7 Hct (37 - 47 %) 38.1 MCV (81.0 - 99.0 FL) 87.3 MCH (27.0 - 31.0 PG) 29.1 RDW (11.5 - 14.5 %) 14.5 Plt Count (130 - 400 /CUMM) 286 MPV (7.4 - 10.4 FL) 7.2 L Gran % (42.2 - 75.2 %) 71.3 Lymphocytes % (20.5 - 51.1 %) 18.8 L Monocytes % (1.7 - 9.3 %) 5.4 Eosinophils % (0 - 5 %) 4.4 Basophils % (0.0 - 2.0 %) 0.1 Absolute Granulocytes (1.4 - 6.5 /CUMM) 6.4 Absolute Lymphocytes (1.2 - 3.4 /CUMM) 1.7 Absolute Monocytes (0.10 - 0.60 /CUMM) 0.5 Absolute Eosinophils (0.0 - 0.7 /CUMM) 0.4 Absolute Basophils (0.0 - 0.2 /CUMM) 0 PUBS MCHC (33.0 - 37.0 G/DL) 33.4 Urines Urine Color Cancelled Urine Clarity Cancelled Urine pH Cancelled Ur Specific [place] Cancelled Urine Protein Cancelled Urine Ketones Cancelled Urine Nitrite Cancelled Urine Bilirubin Cancelled Urine Urobilinogen Cancelled Ur Leukocyte Esterase Cancelled Ur Microscopic Cancelled Urine Hemoglobin Cancelled Urine Glucose Cancelled Imaging/Other Studies: CT head WNL Assessment/Plan Assessment: Complicated migraine most likely. Typical history, history of very similar attack affecting the opposite side in September, long history of migraines. Migraines remain a frequent are fairly well controlled with sumatriptan and without side effects. Vascular risk factors noted. Based on the overall history I doubt that this and the September episode were due to transient cerebral ischemia Recommendations: Continue aspirin 81 MG EC daily MRI of the brain without gadolinium Resume topiramate, patient was on 200 MG at bedtime, please increased dose to 300 MG daily (150 MG twice a day or 100 MG every morning +200 MG every afternoon ) Increase beta susana dose: Now on metoprolol 100 MG daily, up to 100 MG twice a day. May need to discontinue lisinopril if blood pressures dropped too low. Reluctant to prescribe Depakote or tricyclic's due to the risk of weight gain. Continue when necessary sumatriptan 100 MG at onset of headaches, may add 3 ibuprofen 200 MG or 2 Aleve a daily tablets in hopes of improving efficacy Lifestyle modification: Discontinue MSG, nitrites, aged cheeses. Begin conditioning exercise program, yoga. Magnesium supplements 100-200 MG daily and coQ 10 100 MG daily line This was all discussed with the patient and her Okay for outpatient follow-up if the MRI proves negative Consult Acknowledgment - Thank you for your consult request.
[2016-12-06 15:49] VITALS: BP 122/80
[2016-12-06 23:29] VITALS: BP 94/60
--- NOTE | 2016-12-07 05:59 | PN- Housestaff ---
CARMELO HASSAN 12/07/16 0558: Subjective Follow-up For: TIA Complaints: no complaints Subjective: I have seen and examined the patient today morning. She seems to be doing good, we are awaiting MRI of the head today. Review of Systems Constitutional: Reports: see HPI. Objective Last 24 Hrs of Vital Signs/I&O Vital Signs Date Time Temp Pulse Resp B/P Pulse O2 O2 Flow FiO2 Ox Delivery Rate 12/06 2329 98.0 64 12 94/60 96 Room Air 12/06 2150 69 120/68 12/06 2150 69 120/68 12/06 1549 97.7 68 18 122/80 96 Room Air 12/06 1008 64 110/60 12/06 1008 110/60 12/06 1008 64 110/62 12/06 0808 97.7 60 20 102/62 96 Room Air Intake & Output 12/07 0800 12/07 0000 12/06 1600 Intake Total 1000 500 Output Total Balance 1000 500 Intake, Oral 1000 500 Physical Exam General Appearance: Alert, Oriented X3, Cooperative, No Acute Distress Skin: No Rashes, No Breakdown HEENT: Atraumatic, PERRLA, EOMI Neck: Supple, No JVD, No thryomegaly Cardiovascular: Regular Rate, Normal S1, Normal S2, No Murmurs Lungs: Clear to Auscultation, Normal Air Movement Abdomen: Normal Bowel Sounds, Soft, No Tenderness Neurological: Strength at 5/5 X4 Ext, Normal Tone, Sensation Intact, Cranial Nerves 3-12 NL Extremities: No Clubbing, No Cyanosis, No Edema, Normal Pulses Vascular: Normal Pulses Current Medications: Current Medications Sig/Juan Start time Last Medication Dose Route Stop Time Status Admin Acetaminophen 650 MG .STK-MED ONE 12/06 0959 DC PO 12/06 1000 Acetaminophen 650 MG Q6P PRN 12/05 2245 AC 12/06 PO 1007 Aripiprazole 15 MG QAM 12/06 1000 AC 12/06 PO 1009 Aspirin Buffered 81 MG DAILY 12/06 1000 AC 12/06 PO 1008 Atorvastatin Calcium 80 MG 1700 12/05 2345 AC 12/06 PO 1648 Coenzyme Q10 100 MG DAILY 12/06 1545 AC 12/06 PO 1649 Enoxaparin Sodium 40 MG DAILY 12/07 1000 AC SC Isosorbide 30 MG DAILY 12/06 1000 AC 12/06 Mononitrate PO 1008 Ketorolac 30 MG .STK-MED ONE 12/06 1147 DC Tromethamine IM 12/06 1148 Ketorolac 30 MG ONCE ONE 12/06 1115 DC 12/06 Tromethamine IV 12/06 1116 1158 Lisinopril 5 MG DAILY 12/06 1000 AC 12/06 PO 1008 Magnesium Oxide 200 MG DAILY 12/06 1539 AC 12/06 PO 1649 Metoclopramide HCl 10 MG ONCE ONE 12/06 1115 DC 12/06 IV 12/06 1116 1156 Metoprolol Succinate 100 MG BID 12/06 2200 AC 12/06 PO 2150 Metoprolol Succinate 100 MG DAILY 12/06 1000 DC 12/06 PO 1008 Oxycodone/ 1 TAB Q6P PRN 12/05 2245 AC Acetaminophen PO Oxycodone/ 2 TAB Q6P PRN 12/05 2245 AC 12/07 Acetaminophen PO 0219 Prazosin HCl 4 MG QPM 12/05 2345 AC 12/06 PO 2150 Sertraline HCl 200 MG DAILY 12/06 1000 AC 12/06 PO 1009 Sumatriptan Succinate 50 MG DAILY NEEDED PRN 12/06 1115 AC 12/06 PO 1231 Topiramate 150 MG BID 12/07 1000 AC PO Topiramate 100 MG ONCE ONE 12/06 1700 DC 12/06 PO 12/06 1701 2150 Topiramate 200 MG QPM 12/05 2345 DC 12/06 PO 0007 Zolpidem Tartrate 10 MG .STK-MED ONE 12/06 2147 DC PO 12/06 2148 Zolpidem Tartrate 10 MG AT BEDTIME 12/05 2300 AC 12/06 PO 2154 Last 24 Hrs of Lab/[place] Results Last 24 Hrs of Labs/Mics: Laboratory Tests 12/06/16 0615: Anion Gap 12, Estimated GFR > 60, BUN/Creatinine Ratio 17.1, Troponin I < 0.01, Triglycerides 145, Cholesterol 128, LDL Cholesterol, Calc 65, HDL Cholesterol 34 L, Cholesterol/HDL Ratio 4, CBC w Diff NO MAN DIFF REQ, RBC 4.01 L, MCV 87.7, MCH 29.6, RDW 14.2, MPV 7.4, Gran % 64.0, Lymphocytes % 23.3, Monocytes % 6.2, Eosinophils % 5.9 H, Basophils % 0.6, Absolute Granulocytes 5.0, Absolute Lymphocytes 1.8, Absolute Monocytes 0.5, Absolute Eosinophils 0.5, Absolute Basophils 0, PUBS MCHC 33.8 Lines/Diet/Fluids Restraints: none Assessment/Plan Assessment: This is a 46-year-old lady with past medical history of hypertension, CAD, [place] 2 status post single vessel bypass, depression, migraine, with recent admission in Sep 2016 for complex migraine with transient neuro deficits,came on on 12/05/16 with similar episode of right sided headache followed by left facial droop, slurred speech, left sided tingling/numbness and blurring of vision that seems to have resolved. Patient reports, she did not follow up with [place] or [place] neurology for possible botox inj. She does report last migraine episode was 2 days prior that resolved with Imitrex. she Also has a 30-day Holter monitor (3 days remaining) placed by Dr. Goff. VSS. Neuro exam nonfocal. Labs unremarkable. CT head neg. EKG: TWI in V2-V6. Trop neg. 1. Complicated migraine with transient neurological deficits, however cannot rule out TIA. * Continue Neurochecks * Neuro consult appreciated. * Await MRI head * IF negative will dc patient * migraine management with Imitrex, fioricet and zofran. * Will icnreaser topiramate to 300mg daily. * will also increased b susana to 100 mg BID * PRN sumatriptan for severe pain * Edvin add ibruprofen 200 X 3 with PPI on discharge. * Will encourage Lifestyle modification: Discontinue MSG, nitrites, aged cheeses as discussed by emelina, exercise program, yoga * Will add Magnesium supplements 100-200 MG daily and coQ 10 100 MG daily line on discharge. 2. Acute EKG changes, patient asymptomatic. Serial EKG and troponin, obtain Echo and Cardio consult. * Trponind trended ,were negative. DVT ppx Lovenox. Full code. Problem List: 1. TIA (transient ischemic attack) Pain Ratin Pain Location: na Pain Goal: Remain pain free Pain Plan: tyelnol Tomorrow's Labs & Rationales: not needed Discharge Plan Discharge Disposition: home Stable for Discharge? Yes Anticipated Discharge (Day): today If Discharged Today/In 24 Hrs: CMR done SOO CHILDRESS MD 12/07/16 1343: Attending MD Review Statement Attending Statement Attending MD Statement: examined this patient, discuss w/resident/PA/PRODUCT SAFETY TECHNICIAN, agreed w/resident/PA/PRODUCT SAFETY TECHNICIAN, reviewed EMR data (avail), discussed with nursing, discussed with case mgmt Attending Assessment/Plan: Patient feels okay. She has a dull ache and was nauseous earlier today. She doesn't have any more slurring of her speech. I went over her MRI results that they're completely normal. She is a 46-year-old with a history of coronary artery disease, EF of 5045% and severe apical hypokinesis on an echo in September who is here with headache and some neurological symptoms. Neurology thought was likely a complex migraine but the MRI should be done. They also titrated her migraine medications. The MRI is normal and she's had no more neurological events. I think this is all part of a complex migraine and she can safely be discharged with close outpatient neurology follow-up. I stressed the need for compliance and follow-up with her. She had a neurology referral from September which she had not made the appointment but she says she will follow-up this time.
--- NOTE | 2016-12-07 06:04 | Discharge Summary ---
Visit Information Visit Dates Admission Date: 12/05/16 Discharge Date: 12/07/16 Hospital Course Course Attending Physician: MONROE LIVE,SOO Viera Primary Care Physician: ASHLY LIVE,ARIEL Marley Hospital Course: This is a 46-year-old obese female with past medical history of coronary artery disease a status post CABG (2000), PTSD, agoraphobia, frequent episode of complex migraine, prior admission at [facility] in September 2016 for right-sided weakness and headache, complex migraine present to emergency department on 12/05 with chief complaint of left-sided weakness and facial droop mild slurred speech, left-sided tingling and numbness and blurring of vision and that seemed to have resolved on presentation at the emergency department.On presentation she did report last episode at migraine 2 days prior to admission, which resolved with Imitrex. On presentation vitals were stable, labs were unremarkable. CT head was negative. EKG showed T-wave inversions in V2 to V6. Troponins were negative. She was admitted to the telemetry floor for the treatment of following problems. Problem #1 complicated migraine with transient neurological deficits. * She was admitted to the telemetry floor. * Neuro checks were continuously monitored. * Neurology was consulted. Migraine was managed with Imitrex and Fioricet. Nausea was managed with Zofran. Slurring of speech improved during the hospital course. * She did have vascular risk factors including coronary artery disease. * MRI without gadolinium was done, it did not show any acute intracranial infarcts or hemorrhages or any other acute findings. * It was determined that her presentation was secondary to complex migraine, as her migraine was better controlled with titration of her migraine medications, she was deemed to be discharged to home. * Her Topamax was increased to 300 mg daily from previous 200 mg daily, and was divided into twice daily doses of 150 mg. * Her beta susana was also increased 200 mg twice daily from previous once daily dosage. When necessary sumatriptan for acute onset of headache in addition to 3 ibuprofen 200 mg was also prescribed along with PPI coverage for worsening episodes of headaches. * Lifestyle modification about discontinuing MSG, nitrates, aged cheeses along with regular exercise, uvula, medication supplement 100-200 mg daily and CoQ10 10 mg daily was also prescribed. Problem #2 Acute EKG changes. * Patient was asymptomatic, serial EKG and troponins were done.Troponins turned out to be negative, EKG did not show any new changes or any ST segment elevation. Problem #3. CAD S/P bypass * Patient has an extensive cardiac history with last echocardiogram in December 01 2015: EF 50% * Echocardiogram (10/11/16): Severe apical hypokinesis. Left ventricular ejection fraction is estimated at 45%. * Metoprolol 100 mg which was increased , Imdur 30 mg was discontinued ( no active chest pain)on discharge due to migraine episodes, ASA 81 mg was continued. problem #4 History of mood disorder * She was continued on Abilify 10 mg, Zoloft, prazosin 3 mg QHS, Xanax PRN * She was continued on Ambien daily at bedtime Allergies: Coded Allergies: No Known Allergies (08/06/16) Significant Procedures: SERVICE DATE: 12/05/16 EXAM TYPE: CAT - CT HEAD WO IV CONTRAST FINDINGS: There is no evidence of acute intracranial hemorrhage or territorial infarction. No abnormal mass effect or midline shift is seen. Gonzalez to white matter differentiation is well preserved. No extra-axial fluid collections are identified. The ventricles are normal in size. There is no new abnormal attenuation within the brain parenchyma. The osseous structures and soft tissues are normal. The mastoid air cells are well aerated. Mild paranasal sinus mucosal thickening. IMPRESSION: No acute intracranial pathology. SERVICE DATE: 12/07/16- EXAM TYPE: MRI - MRI-HEAD W/O CHELI IMPRESSION: 1. There are no acute bleeds or infarcts. 2. The study redemonstrates postoperative changes in the paranasal sinuses with mucoperiosteal thickening as described above. Disposition Summary Disposition Principal Diagnosis: 1. Migraine complicated with neurologic deficits Additional Diagnosis: 2. CAD S/P bypass 3. Hypertension 4. HLD Discharge Disposition: home or self care Discharge Instructions General Discharge Information Code Status: Full Code Patient's Diet: Regular diet Patient's Activity: as tolerated. Follow-Up Instructions/Appts: Please follow up with your PCP within one week of discharge. Please follow up with your nuerologist within one week of discharge. Please note the change in your medications and continue taking medications as prescribed. Please continue following Lifestyle modification: Discontinue MSG, nitrites, aged cheeses. Begin conditioning exercise program, yoga. Magnesium supplements 100-200 MG daily and coQ 10 100 MG daily line were also added. Medications at Discharge Discharge Medications: Stop taking the following medications: Topiramate (Topiramate) 200 MG TABLET ORAL Every night Qty = 85 Metoprolol Succinate (Metoprolol Succinate XL) [address] ORAL DAILY Qty = 30 Naproxen (Naproxen) 375 MG TABLET ORAL as needed for PAIN Isosorbide Mononitrate (Isosorbide Mononitrate ER) 30 MG TAB.ER.24H ORAL DAILY Qty = 30 Propranolol HCl (Propranolol HCl) 20 MG TABLET ORAL THREE TIMES DAILY as needed for ANXIETY Qty = 90 Continue taking these medications: Aspirin (Ecotrin) 81 MG TABLET.DR 1 Tablet ORAL DAILY Comments: Last Taken: 12/02/15 Time: 9:00 AM Multivitamin (Multiple Vitamins) 1 EACH TABLET 1 Tablet ORAL DAILY Comments: Last Taken: 12/02/14 Time: 9:00 AM Zolpidem Tartrate (Zolpidem Tartrate) 10 MG TAB 1 Tablet ORAL Every night Qty = 30 Comments: PER PT Last Taken: 12/01/15 Time: 9:45 PM Sertraline HCl (Zoloft) 100 MG TABLET 2 Tablet ORAL DAILY Comments: Last Taken: 12/07 Time: 9:30 AM Prazosin HCl (Prazosin HCl) 2 MG CAPSULE 2 Capsule ORAL Every night Qty = 30 Comments: Last Taken: 12/06 Time: 9:30PM Rosuvastatin Calcium (Crestor) 40 MG TABLET 1 Tablet ORAL DAILY Qty = 90 Comments: Last Taken: 12/06 Time: 5PM Alprazolam (Xanax) 0.25 MG TABLET 1 Tablet ORAL TWICE DAILY as needed for anxiety Comments: Last Taken: 12/07 Time: 9:00 AM Sumatriptan Succinate (Imitrex) 50 MG TABLET 1 Tablet ORAL As Directed Qty = 9 Instructions: take one tab at the onset of the headache Take a second tab 2 hrs After if migraine persists and call PCP/neurologist Comments: Last Taken: 12/07 Time: 12:15PM Lisinopril (Lisinopril) 5 MG TABLET 1 Tablet ORAL DAILY Qty = 30 Comments: Last Take: 12/07 Time: 9:30AM Aripiprazole (Abilify) 15 MG TABLET 1 Tablet ORAL Every Morning Qty = 30 Comments: Last Taken: 12/07 Time: 9:30 AM Nitroglycerin (Nitrostat) 0.4 MG TAB.SUBL 1 Tablet SUBLINGUAL As Directed as needed for CHEST PAIN Qty = 50 Instructions: 1st sign of attack; may repeat every 5 minutes until relief; if pain persists after 3 tablets in 15 minutes, prompt medical att Comments: NOT GIVEN IN HOSPITAL Start taking the following new medications: Topiramate (Qudexy XR) 150 MG CAP.SPR.24 1 Tablet ORAL TWICE DAILY Days = 30 Refills = 1 Metoprolol Succ XL (Toprol XL) 100 MG TAB.ER.24H 1 Tablet ORAL TWICE DAILY Days = 30 No Refills Ibuprofen (Advil) 200 MG CAPSULE 3 Tablet ORAL DAILY as needed for SEVERE PAIN Days = 30 No Refills Magnesium (Magnesium) 200 MG TABLET 1 Tablet ORAL DAILY Days = 60 No Refills Ubidecarenone (Coq-10) 100 MG CAPSULE 1 Capsule ORAL DAILY Days = 60 No Refills Oxycodone HCl/Acetaminophen (Percocet 10-325 MG Tablet) 10 MG-325 MG TABLET 1 Tablet ORAL 4 TIMES A DAY Qty = 10 No Refills Omeprazole (Omeprazole) 20 MG CAPSULE.DR 1 Capsule ORAL See Instructions Qty = 30 No Refills Instructions: Take one tablet prior to taking the ibuprofen tablet. Copies To: BOB LIVE,LARRY Bañuelos; ASHLY LIVE,ARIEL Marley Attending MD Review Statement Documenting Attending: MONROE LIVE,SOO Viera
[2016-12-07 08:15] VITALS: BP 102/60
--- NOTE | 2016-12-07 12:16 | NUR ---
PATIENT REMAINS ALERT AND ORIENTATED X3. VSS. C/O HEADACHE 08/01 MEDICATED WITH POERCACET AT 0800 A.M. PATIENT ALSO C/O NAUSEA. MD AWARE. PATIENT GIVEN PERCACET 2 TABS ORDERED. ZOFRAN 4NG IV X 1 GIVEN. PATIENT TO MRI AND BACK, HEADACHE PERSIST AND IS NOW GIVEN IMITREX PO. WILL MONITOR.
--- NOTE | 2016-12-07 13:12 | MRI REPORT ---
EXAMINATION: MR BRAIN WITHOUT CONTRAST CLINICAL INFORMATION: Headache and possible facial droop. Assess for intracranial pathology. COMPARISON: CT scan of the head 12/05/2015. MRI scan of the brain 10/09/2016. TECHNIQUE: MRI of the brain without contrast was obtained using routine sequences. FINDINGS: No diffusion abnormalities are identified to suggest an acute or subacute infarct. No mass effect or midline shift is seen. The ventricles are normal in size. Accounting for artifact, brain parenchymal signal is unremarkable. No extra-axial fluid collections are seen. The brainstem and cerebellum are normal. No pathologic magnetic susceptibility artifact is identified on the gradient refocused acquisition. The craniovertebral junction, marrow signal, and midline structures are normal. The major intracranial flow-voids at the level of the [place] are preserved. The dural venous sinus flow-voids are maintained. The mastoid air cells are well-aerated. There are sequelae of prior surgery of the paranasal sinuses. There is mucoperiosteal thickening in the residual bilateral maxillary, ethmoid and sphenoid sinuses. There appears to be a polyp in the posterior left inferior nasal cavity. IMPRESSION: 1. There are no acute bleeds or infarcts. 2. The study redemonstrates postoperative changes in the paranasal sinuses with mucoperiosteal thickening as described above.
[2016-12-07] MEDS ORDERED: QUDEXY XR150 MG PO (13:46)
[2016-12-07] MEDS ORDERED: TOPROL XL100 M1 PO (13:48)
[2016-12-07] MEDS ORDERED: ADVIL200 M1 PO (13:53)
[2016-12-07] MEDS ORDERED: COQ-10100 MG PO (13:55)
[2016-12-07] MEDS ORDERED: MAGNESIUM200 M1 PO (13:55)
[2016-12-07] MEDS ORDERED: OMEPRAZOLE20 M2 PO (14:11)
[2016-12-07] MEDS ORDERED: PERCOCET 10-321 EACH PO (14:11)
--- NOTE | 2016-12-07 14:15 | Patient Discharge Instructions ---
Discharge Instructions General Discharge Information You were seen/treated for: migraine Special Instructions: Please follow up with your PCP within one week of discharge. Please follow up with your nuerologist within one week of discharge. Please note the change in your medications and continue taking medications as prescribed. Please continue following Lifestyle modification: Discontinue MSG, nitrites, aged cheeses. Begin conditioning exercise program, yoga. Magnesium supplements 100-200 MG daily and coQ 10 100 MG daily line were also added. Diet Continue normal diet: No Acute Coronary Syndrome Inclusion Criteria At DC or during hospital stay patient has or had the following: ACS DIAGNOSIS No Discharge Core Measures Meds if any: Prescribed or Continued at Discharge Meds if any: NOT Prescribed or Continued at Discharge Congestive Heart Failure Inclusion Criteria At DC or during hospital stay patient has or had the following: CHF DIAGNOSIS No Discharge Core Measures Meds if any: Prescribed or Continued at Discharge Meds if any: NOT Prescribed or Continued at Discharge Cerebrovascular accident Inclusion Criteria At DC or during hospital stay patient has or had the following: CVA/TIA Diagnosis No Discharge Core Measures Meds if any: Prescribed or Continued at Discharge Meds if any: NOT Prescribed or Continued at Discharge Venous thromboembolism Inclusion Criteria VTE Diagnosis No VTE Type NONE VTE Confirmed by (Test) NONE Discharge Core Measures - Per Current guidelines, there needs to be overlap - treatment for the first 5 days of Warfarin therapy. - If discharged on Warfarin prior to 5 days of - overlap therapy, the patient will need to be - assessed for post discharge needs including - *Post discharge parental anticoagulation - *Warfarin and/or parental anticoagulation education - *Follow up date to check INR post discharge At least 5 days overlap therapy as Inpatient No Meds if any: Prescribed or Continued at Discharge Note: Overlap Therapy is Warfarin and Anticoagulant Meds if any: NOT Prescribed or Continued at Discharge
--- NOTE | 2016-12-07 14:28 | PN- Neurology ---
Subjective Subjective: Headache persists, milder Review of Systems: no nausea or vomiting no dyspnea, cough no presyncope Objective Vital Signs and I&Os Vital Signs Date Time Temp Pulse Resp B/P Pulse O2 O2 Flow FiO2 Ox Delivery Rate 12/07 0932 97.8 72 18 121/61 12/07 0931 97.8 72 18 121/61 12/07 0930 72 121/61 12/07 0815 97.8 63 18 102/60 95 Room Air 12/06 2329 98.0 64 12 94/60 96 Room Air 12/06 2150 69 120/68 12/06 2150 69 120/68 12/06 1549 97.7 68 18 122/80 96 Room Air Intake & Output 12/07 1600 12/07 0800 12/07 0000 12/06 1600 12/06 0800 12/06 0000 Intake Total 1000 830 361 2100 Output Total Balance 1000 [phone] Intake, IV 0 1000 Intake, Oral 1000 500 650 150 Number 0 Bowel Movements Patient 225 lb Weight Physical Exam: Alert, oriented. speech clear, EOMI, VFF, P4ERRL, VII normal, supervisor phosphorus processing normal Current Medications: Current Medications Sig/Juan Start time Last Medication Dose Route Stop Time Status Admin Acetaminophen 650 MG Q6P PRN 12/05 2245 AC 12/06 PO 1007 Aripiprazole 15 MG QAM 12/06 1000 AC 12/07 PO 0932 Aspirin Buffered 81 MG DAILY 12/06 1000 AC 12/07 PO 0931 Atorvastatin Calcium 80 MG 1700 12/05 2345 AC 12/06 PO 1648 Coenzyme Q10 100 MG DAILY 12/06 1545 AC 12/07 PO 0932 Enoxaparin Sodium 40 MG DAILY 12/07 1000 AC 12/07 SC 0928 Isosorbide 30 MG DAILY 12/06 1000 AC 12/07 Mononitrate PO 0932 Lisinopril 5 MG DAILY 12/06 1000 AC 12/07 PO 0931 Magnesium Oxide 200 MG DAILY 12/06 1539 AC 12/07 PO 0931 Metoprolol Succinate 100 MG BID 12/06 2200 AC 12/07 PO 0930 Metoprolol Succinate 100 MG DAILY 12/06 1000 DC 12/06 PO 1008 Ondansetron HCl 4 MG ONCE ONE 12/07 0830 DC 12/07 IV 12/07 0831 0928 Oxycodone/ 1 TAB Q6P PRN 12/05 2245 AC Acetaminophen PO Oxycodone/ 2 TAB Q6P PRN 12/05 2245 AC 12/07 Acetaminophen PO 0815 Prazosin HCl 4 MG QPM 12/05 2345 AC 12/06 PO 2150 Sertraline HCl 200 MG DAILY 12/06 1000 AC 12/07 PO 0928 Sumatriptan Succinate 50 MG DAILY NEEDED PRN 12/06 1115 AC 12/07 PO 1213 Topiramate 150 MG BID 12/07 1000 AC 12/07 PO 0931 Topiramate 100 MG ONCE ONE 12/06 1700 DC 12/06 PO 12/06 1701 2150 Topiramate 200 MG QPM 12/05 2345 DC 12/06 PO 0007 Zolpidem Tartrate 10 MG .STK-MED ONE 12/06 2147 DC PO 12/06 2148 Zolpidem Tartrate 10 MG AT BEDTIME 12/05 2300 AC 12/06 PO 2154 Results Last 24 Hours of Lab Results: Laboratory Tests 12/07 0640 Chemistry Sodium (137 - 145 mmol/L) 141 Potassium (3.5 - 5.1 mmol/L) 4.1 Chloride (98 - 107 mmol/L) 110 H Carbon Dioxide (22 - 30 mmol/L) 23 Anion Gap (5 - 16) 7 BUN (7 - 17 mg/dL) 11 Creatinine (0.5 - 1.0 mg/dL) 0.7 Estimated GFR (>60 ml/min) > 60 BUN/Creatinine Ratio (7 - 25 %) 15.7 Recent Imaging Studies: MRI: No diffusion abnormalities are identified to suggest an acute or subacute infarct. No mass effect or midline shift is seen. The ventricles are normal in size. Accounting for artifact, brain parenchymal signal is unremarkable. No extra-axial fluid collections are seen. The brainstem and cerebellum are normal. No pathologic magnetic susceptibility artifact is identified on the gradient refocused acquisitio Assessment/Plan Assessment: Complex migraine, improving, no evidence of infarction BP low on increased b-susana Plan: consider d/c lisinopril as B-Bl dose increased continue current higher dose TPM other Rx as per consult note refer to neurology clinic at [facility] for follow-up
[2016-12-07 15:18] VITALS: BP 110/72
== END 2016-12-07 16:05 | DRG 54 ==
LOC: ENRESERVDT → ENRESERVTM → ERH 17:30 → ENPENDDIS 20:20 → 1NO 20:20 → ERHI 20:20 → 1NO 22:40
PROVIDERS: Internal Medicine; Nurse Practitioner Family; ADMIT Student in an Organized Health Care Education/Training Program
DX: G43.109 Migraine with aura, not intractable, without status migrainosus (principal); I25.10 Atherosclerotic heart disease of native coronary artery without angina pectoris; I10 Essential (primary) hypertension; I25.2 Old myocardial infarction; E78.5 Hyperlipidemia, unspecified; J45.909 Unspecified asthma, uncomplicated; Z87.891 Personal history of nicotine dependence; Z95.1 Presence of aortocoronary bypass graft
CPT/HCPCS: 1NP; 70551; 82436; 93005; 93010; 96361; 96374; 96375; J1200; J1650; J1885; J2405; J2765; J3030; J7508

== ENCOUNTER 2017-02-18 11:44 | Inpatient (IN) | payer OTHER ==
[~2017-02-18] VITALS: Ht 162.6 cm; Wt 99.8 kg
[~2017-02-18 11:44] MED LIST changes: +ADVIL200 M1 PO; +COQ-10100 MG PO; +MAGNESIUM200 M1 PO; +OMEPRAZOLE20 M2 PO; +PERCOCET 10-321 EACH PO; +PROPRANOLOL HCL20 M1 PO; +QUDEXY XR150 MG PO; +TOPROL XL100 M1 PO
--- NOTE | 2017-02-18 11:52 | NUR ---
PT C/O DEEP CP SINCE THIS MORNING. STATES CP OFF AND ON FOR A FEW DAYS WITH SOB. PT STATES TIGHTNESS THAT SHOOTS STRAIGHT THROUGH TO BACK
--- NOTE | 2017-02-18 12:30 | NUR ---
UPON ENTERING ROOM, PT REPORTS THAT SHE SAW DOCTOR THIS WEEK AND HAD A POSITIVE PPD READING, REDNESS AND INDURATION NOTED TO L FOREARM. STATES SHE HAS NOT HAD THE ADDITIONAL TESTING OR CHEST XRAY COMFIRMATION TO R/O TB. FACE MASK APPLIED AND INFORMED OF PLAN TO MOVE TO NEGATIVE PRESSURE ROOM SHORTLY FOR ASSESSMENT BY MD AND TO DETERMINE APPROPRIATE PLAN. NORMAL SINUS ON CM
--- NOTE | 2017-02-18 12:48 | NUR ---
PT MOVED TO ROOM 10 NEG PRESSURE ROOM. EXPLAINED PROBABLE COURSE OF TX AND ASSESSMENT. PLACED BACK ON CM AND MASKS INTACT. BP NORMOTENSIVE, NOTED TO BE COUGHING WITH CONTINUED SOB AND CHEST PAIN
--- NOTE | 2017-02-18 13:19 | NUR ---
DR GARSIA TO [facility].
--- NOTE | 2017-02-18 13:31 | ED CARDIAC/CP/PALPITATIONS ---
History of Present Illness General Chief Complaint: Chest Pain Stated Complaint: CP Source: patient Exam Limitations: no limitations Vital Signs & Intake/Output Vital Signs & Intake/Output Vital Signs Date Time Temp Pulse Resp B/P Pulse O2 O2 Flow FiO2 Ox Delivery Rate 02/19 0942 60 110/68 02/19 0942 60 110/68 02/19 0941 60 110/68 02/19 0905 98.8 60 18 110/68 94 Room Air 02/19 0800 Room Air 02/19 0122 98.3 64 16 112/72 96 Room Air 02/18 2139 60 130/80 02/18 2139 60 130/80 02/18 1946 Room Air 02/18 1927 98.6 68 18 118/58 98 Room Air 02/18 1738 60 113/68 98 Room Air 02/18 1413 98.8 70 20 114/56 98 Room Air 02/18 1249 68 18 119/69 96 Room Air 02/18 1233 96 Room Air 02/18 1151 99.2 68 20 141/74 96 Room Air ED Intake and Output 02/19 0000 02/18 1200 Intake Total 600 Output Total Balance 600 Intake, Oral 600 Patient 220 lb 220 lb Weight Allergies Coded Allergies: No Known Allergies (08/06/16) Reconcile Medications Aspirin (Ecotrin*) 81 MG TABLET.DR 1 TAB PO DAILY HEART/BLOOD (Reported) Ibuprofen (Advil) 200 MG CAPSULE 3 TAB PO DAILY PRN SEVERE PAIN Isosorbide Mononitrate (Isosorbide Mononitrate ER) 30 MG TAB.ER.24H 1 TAB PO QAM HEART (Reported) Lisinopril 5 MG TABLET 1 TAB PO DAILY Hypertension/CHF Metoprolol Succ XL (Toprol XL) 100 MG TAB.ER.24H 1 TAB PO BID MIGRAINE Multivitamin (Multiple Vitamins) 1 EACH TABLET 1 TAB PO DAILY SUPPLEMENT ( Reported) Nitroglycerin (Nitrostat) 0.4 MG TAB.SUBL 1 TAB SL AD PRN CHEST PAIN ( Reported) 1st sign of attack; may repeat every 5 minutes until relief; if pain persists after 3 tablets in 15 minutes, prompt medical att Omeprazole 20 MG CAPSULE.DR 1 CAP PO SI acid reflux Take one tablet prior to taking the ibuprofen tablet. Prazosin HCl 2 MG CAPSULE 2 CAP PO QPM SLEEP (Reported) Rosuvastatin Calcium (Crestor) 40 MG TABLET 1 TAB PO DAILY CHOLESTEROL ( Reported) Sertraline HCl (Zoloft) 100 MG TABLET 2 TAB PO DAILY DEPRESSION (Reported) Sumatriptan Succinate (Imitrex) 50 MG TABLET 1 TAB PO AD Migraine take one tab at the onset of the headache Take a second tab 2 hrs After if migraine persists and call PCP/neurologist Topiramate 200 MG TABLET 1 TAB PO BID MIGRAINES (Reported) Zolpidem Tartrate (Ambien) 10 MG TABLET 1 TAB PO QPM SLEEP (Reported) Triage Note: PT C/O DEEP CP SINCE THIS MORNING. STATES CP OFF AND ON FOR A FEW DAYS WITH SOB. PT STATES TIGHTNESS THAT SHOOTS STRAIGHT THROUGH TO BACK Triage Nurses Notes Reviewed? yes : No Patient currently breastfeeds: No HPI: Patient presents for evaluation of substernal chest pain that has occurred intermittently since yesterday. Patient states that independent of her chest pain she was being evaluated for a phlebotomy position and had a PPD placed as part of the routine testing. She tested positive yesterday and has a chest x- ray pending. However since she started having chest pains yesterday as well she came to the emergency department for evaluation. In particular she states the pain became worse today. The pain radiates to the left shoulder and back and is described as a deep grabbing pain. It gets worse with deep inspiration. She took 3 subungual nitroglycerin tablets today with improvement of her pain (it is now down to 8 out of 10). Her intermittent episodes last about 20 minutes at a time and are not associated with diaphoresis. Patient also denies night sweats. She denies coughing. She is concerned however that this pain is a reflection of her underlying coronary artery disease (patient has had prior bypass and heart attacks). Past History Travel History Traveled to [place] past 21 day No Medical History Any Pertinent Medical History? see below for history Neurological: migraine, ?COMPLICATED MIGRAINES EENT: NONE Cardiovascular: CAD, hypertension, hyperlipidemia, myocardial infarction Respiratory: asthma Gastrointestinal: NONE Hepatic: cholelithiasis Renal: NONE Musculoskeletal: NONE Psychiatric: anxiety, depression, PTSD Endocrine: NONE Blood Disorders: NONE Cancer(s): NONE TICKET BROKER/Reproductive: endometriosis History of MRSA: No History of VRE: No History of CDIFF: No Influenza Vaccine: 10/09/16 Surgical History Surgical History: appendectomy, CABG, cholecystectomy, removal of sinus polyps, hysterectomy and oopherectomy of right ovary Psychosocial History Who do you live with Spouse Services at Home None What is your primary language [place] Tobacco Use: Never used ETOH Use: denies use Illicit Drug Use: denies illicit drug use Family History Family History, If Any: MOTHER FH: myocardial infarction, Onset: at 53. FATHER FH: CAD (coronary artery disease) FH: CHF (congestive heart failure) FH: diabetes mellitus FH: myocardial infarction Relation not specified for: FH: myocardial infarction Hx Contributory? No Review of Systems Review of Systems Constitutional: Reports: no symptoms. EENTM: Reports: no symptoms. Respiratory: Reports: no symptoms. Cardiovascular: Reports: see HPI. GI: Reports: no symptoms. Genitourinary: Reports: no symptoms. Musculoskeletal: Reports: no symptoms. Skin: Reports: no symptoms. Neurological/Psychological: Reports: no symptoms. Hematologic/Endocrine: Reports: no symptoms. Immunologic/Allergic: Reports: no symptoms. All Other Systems: Reviewed and Negative Physical Exam Physical Exam Cardiovascular: see below Comments: Gen.: Well-nourished, well-developed, no acute respiratory distress. Head: Normocephalic, atraumatic. Eyes: Normal inspection bilaterally Ears: Normal inspection bilaterally Nose: Normal inspection Throat/mouth : Moist mucosa Neck: Supple, full range of motion, no goiter Heart: Regular rate and rhythm, no murmurs rubs or gallops Lungs: Clear to auscultation bilaterally with normal air entry Chest: Nontender Back: Normal range of motion Abdomen: Soft, mild right upper quadrant abdominal tenderness without rebound or guarding, nondistended, normal bowel sounds Extremities: Normal range of motion grossly, equal radial pulses, no cyanosis clubbing or edema Neurologic: Cranial nerves grossly intact, speech is clear Skin: warm and dry Psychiatric: Calm, cooperative, no apparent delusions or hallucinations Core Measures ACS in differential dx? Yes ASA ordered for poss ACS? pt takes asa daily Severe Sepsis Present: No Septic Shock Present: No Progress Differential Diagnosis: AMI, pneumonia, unstable angina Plan of Care: Orders Procedure Date/time Status CBC WITHOUT DIFFERENTIAL 02/19 06 Complete BASIC ELECTROLYTES PLUS BUN&CR 02/19 06 Complete TROPONIN LEVEL 02/19 0200 Complete EKG 02/19 020 Active House Staff 02/19 UNK Active Heart Healthy Diet 02/18 D Active TROPONIN LEVEL 02/19 2000 Complete D-DIMER 02/19 2000 Complete EKG 02/19 2000 Active Vital Signs 02/18 190 Active Teach/Educate 02/18 1902 Active Pain Treatment and Response 02/18 190 Active Nutritional Intake, Monitor 02/18 190 Active Isolation 02/18 190 Active Patient Care Conference 02/18 190 Active Activity/Ambulation 02/18 190 Active Pathway - chart 02/18 1836 Active Pathway - chart 02/18 181 Active House Staff 02/18 181 Active Patient Data 02/18 181 Active Code Status 02/18 1813 Active Patient Data 02/[address] in observation 02/18 1609 Active Telemetry/Installer Soft Top 02/18 1330 Active TROPONIN LEVEL 02/18 1330 Complete MAGNESIUM 02/18 1330 Complete CBC WITHOUT DIFFERENTIAL 02/18 1330 Complete BASIC METABOLIC PANEL 02/18 1330 Complete Intake & Output 02/18 1232 Active EKG 02/18 1145 Active Lab Add-on Test 02/18 UNK Active MISSING MEDICATION FORM 02/18 UNK Active ECHOCARDIOGRAM 02/18 UNK Active Current Medications Sig/Juan Start time Last Medication Dose Stop Time Status Admin Atorvastatin Calcium 80 MG 1700 02/19 1700 AC (Lipitor) Oxycodone/ 1 TAB Q6P PRN 02/18 1845 CAN Acetaminophen (Percocet) Laboratory Tests 02/19/17 0235: Troponin I < 0.01 02/19/17 0235: Anion Gap 9, Estimated GFR > 60, BUN/Creatinine Ratio 16.3, CBC w Diff NO MAN DIFF REQ, RBC 4.19 L, MCV 88.6, MCH 29.1, RDW 13.6, MPV 7.1 L, Gran % 54.1, Lymphocytes % 33.8, Monocytes % 6.1, Eosinophils % 5.4 H, Basophils % 0.6, Absolute Granulocytes 3.4, Absolute Lymphocytes 2.1, Absolute Monocytes 0.4, Absolute Eosinophils 0.3, Absolute Basophils 0, PUBS MCHC 32.9 L 02/18/172004: Troponin I < 0.01, D-Dimer 331 H 02/18/17 1357: Anion Gap 9, Estimated GFR > 60, BUN/Creatinine Ratio 8.6, Glucose 103 H, Calcium 9.6, Magnesium 1.9, Troponin I < 0.01, CBC w Diff NO MAN DIFF REQ, RBC 4.50, MCV 88.9, MCH 28.6, RDW 13.4, MPV 7.1 L, Gran % 66.4, Lymphocytes % 20.8, Monocytes % 5.9, Eosinophils % 6.1 H, Basophils % 0.8, Absolute Granulocytes 4.1, Absolute Lymphocytes 1.3, Absolute Monocytes 0.4, Absolute Eosinophils 0.4, Absolute Basophils 0.1, PUBS MCHC 32.1 L Diagnostic Imaging: Discussed w/RAD: Radiology Read. CXR Impression: PATIENT: CHEVY LEÓN PRESENT AGE: 46 PATIENT ACCOUNT NO: [id number] : 72 LOCATION: [facility] ORDERING PHYSICIAN: JUAN PABLO GARSIA MD SERVICE DATE: 02/18/17 EXAM TYPE: RAD - XRY-PORTABLE CHEST XRAY EXAMINATION: XR PORTABLE CHEST CLINICAL INFORMATION: Positive PPD. Chest pain. COMPARISON: Chest x-ray and chest CT of 11/19/2016, chest x-rays of 08/06/2016 and multiple previous chest x-rays dated back to . TECHNIQUE: Portable AP view of the chest was obtained. FINDINGS: The cardiomediastinal silhouette is stable with the mild cardiomegaly. The visualized sternotomy wires appear intact. The lungs are normally and symmetrically expanded. No focal consolidation, changes of congestion or pleural effusions. No pneumothorax. IMPRESSION: No acute or active pulmonary process. The lungs appear clear. DICTATED BY: GERMAIN YOUSIF MD DATE/TIME DICTATED:02/18/171347 ROLLER HAND:GHANSHYAM DATE/TIME TRANSCRIBED:02/18/171347 CONFIDENTIAL, DO NOT COPY WITHOUT APPROPRIATE AUTHORIZATION. <Electronically signed in Other Vendor System> SIGNED BY: GERMAIN YOUSIF MD 02/18/17 9773 Initial ED EKG: NSR, no ST T wave changes Comments: 02/18/2017 2:44:37 PM patient's case discussed with Dr. TORIBIO who feels that the patient should be started on TB treatment by her primary care physician. Departure Departure Disposition: STILL A PATIENT Condition: Stable Clinical Impression Primary Impression: Chest pain Referrals: ASHLY LIVE,ARIEL Marley (PCP/Family) Departure Forms: Customer Survey General Discharge Information Observation Note Spoke With: OMARI SALAZAR MD Physician Advisor Notified: BIGG LIVE,JONO Michelle Place Patient In: Non-ED OBS Care Area Rationale for Observation: My rational for observation is as follows patient has an extensive cardiac history including myocardial infarction and bypass. She presents with an ongoing chest pain syndrome that has not responded to nitroglycerin, GI cocktail , Toradol. I feel that this patient now requires hospitalization for serial troponins and serial EKGs rule out acute coronary syndrome/AK. The patient's ongoing chest pain makes her a poor candidate for outpatient management as I feel she would have difficulty in compliance with outpatient treatment. In addition I feel compliance with outpatient treatment and potentially worsen her chest pain leading to dysrhythmias shortness of breath and syncope. Given the above, echocardiogram and/or stress testing should also be considered. Critical Care Note Critical Care Note Critical Care Time: 30-74 min
--- NOTE | 2017-02-18 13:54 | RADIOLOGY REPORT ---
EXAMINATION: XR PORTABLE CHEST CLINICAL INFORMATION: Positive PPD. Chest pain. COMPARISON: Chest x-ray and chest CT of 11/19/2016, chest x-rays of 08/06/2016 and multiple previous chest x-rays dated back to 09/19/2013. TECHNIQUE: Portable AP view of the chest was obtained. FINDINGS: The cardiomediastinal silhouette is stable with the mild cardiomegaly. The visualized sternotomy wires appear intact. The lungs are normally and symmetrically expanded. No focal consolidation, changes of congestion or pleural effusions. No pneumothorax. IMPRESSION: No acute or active pulmonary process. The lungs appear clear.
--- NOTE | 2017-02-18 13:55 | NUR ---
GI COCKTAIL ORDERED (SEE MAR)
[2017-02-18 14:16] LABS: ABSOLUTE BASOPHIL COUNT 0.1 /CUMM (0.0-0.2); ABSOLUTE EOSINOPHIL COUNT 0.4 /CUMM (0.0-0.7); ABSOLUTE GRANULOCYTE CT 4.1 /CUMM (1.4-6.5); ABSOLUTE LYMPH COUNT 1.3 /CUMM (1.2-3.4); ABSOLUTE MONOCYTE COUNT 0.4 /CUMM (0.10-0.60); BASOPHIL % 0.8 % (0.0-2.0); EOSINOPHIL % 6.1 % (0-5); GRANULOCYTE % 66.4 % (42.2-75.2); MEAN CORPUSCULAR HGB 28.6 PG (27.0-31.0); MEAN CORPUSCULAR HGB CONC 32.1 G/DL (33.0-37.0); MEAN CORPUSCULAR VOLUME 88.9 FL (81.0-99.0); MEAN PLATELET VOLUME 7.1 FL (7.4-10.4); PLATELET COUNT 245 /CUMM (130-400); RBC DISTRIBUTION WIDTH 13.4 % (11.5-14.5); WHITE BLOOD CELL COUNT 6.2 /CUMM (4.8-10.8)
--- NOTE | 2017-02-18 14:25 | NUR ---
IV EST RAC #[id number]. MEDICATED PER EMAR. NSR 60S ON MONITOR, PLACED ON CYCLING BPS AFTER NITRO PASTE APPLIED.
--- NOTE | 2017-02-18 15:10 | NUR ---
ASSUMED CARE OF PT. REPORT RECIEVED FROM ABRAHAM ROBLES. PT AWAKE, ALERT AND ORIENTED. IN NO DISTRESS. SINUS RHYTHM ON MONITOR
--- NOTE | 2017-02-18 16:15 | NUR ---
PT CONTINUES TO COMPLAIN OF CHEST DISCOMFORT. STATES TORADOL EASED PAIN A LITTLE. COMPLAINING OF HEADACHE AFTER NTG. DENIES ANY RELIEF OF PAIN AFTER GI COCKTAIL. GIVEN MORPHINE FOR PAIN
--- NOTE | 2017-02-18 16:49 | NUR ---
PT UP TO RESTROOM
[2017-02-18] MEDS ORDERED: PROPRANOLOL HCL20 M1 PO (17:02)
[2017-02-18] MEDS ORDERED: TOPIRAMATE200 M2 PO (17:03)
[2017-02-18] MEDS ORDERED: ISOSORBIDE MONO30 M1 PO (17:04)
--- NOTE | 2017-02-18 17:14 | NUR ---
PT BACK IN BED. ON MONITOR IN SINUS RHYTHM. CONTINUES TO COMPLAIN OF LOWER STERNAL PAIN/PRESSURE THAT "GOES STRAIGHT THROUGH TO BACK". SKIN WARM AND DRY.
--- NOTE | 2017-02-18 17:23 | History & Physical ---
BROOKLYN GUTIERREZ MD 02/18/17 1721: General Information and HPI MD Statement: I have seen and personally examined CHEVY LEÓN and documented this H&P. The patient is a 46 year old F who presented with a patient stated chief complaint of [chest pain]. Source of Information: patient Exam Limitations: no limitations History of Present Illness: Patient is a 46 YO F with PMH significant for CAD s/p single vessel CABG 2000, HTN, HLD, Complicated migranes, Asthma (on inhalers), Anxiety, depression, PTSD came to the ER with chest pain. She had stable angina at baseline, on and off pain with exertion relieves within 15min. Yesterday she had 2 episodes, today morning she woke up took her dogs to walk, started experiencing chest pain after she reaches home. She reports pain is substernal, dull, radiating to the left arm, jaw, back, associated with pounding of heart, sweating, dizziness, relieved with SL nitroglycerine. Pain appears pleuritic, not changing with position, associated with shortness of breath however no cough, fever, chills, recent sick contacts. Her recent Cath in 2016 shows WOO to LAD was noted to be atretic. 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 FATHER FH: CAD (coronary artery disease) FH: CHF (congestive heart failure) FH: diabetes mellitus FH: myocardial infarction Relation not specified for: FH: myocardial infarction Psychosocial History Who Do You Live With? spouse, child Services at Home: None Primary Language: [place]er ETOH Use: denies use Illicit Drug Use: denies illicit drug use Functional Ability ADLs Independent: dressing, eating, toileting, bathing. Ambulation: independent IADLs Independent: shopping, housework, finances, food prep, telephone, transportation , medication admin. Review of Systems Review of Systems Constitutional: Reports: see HPI. Comments ROS negative except the above. Exam & Diagnostic Data Last 24 Hrs of Vital Signs/I&O Vital Signs Date Time Temp Pulse Resp B/P Pulse O2 O2 Flow FiO2 Ox Delivery Rate 02/18 1413 98.8 70 20 114/56 98 Room Air 02/18 1249 68 18 119/69 96 Room Air 02/18 1233 96 Room Air 02/18 1151 99.2 68 20 141/74 96 Room Air Intake & Output 02/18 1600 02/18 0800 02/18 0000 Intake Total Output Total Balance Patient 99.79 kg Weight Physical Exam General Appearance Alert, Oriented X3, Cooperative Skin No Rashes, No Breakdown HEENT Atraumatic, PERRLA, EOMI Neck Supple Cardiovascular Regular Rate, Normal S1, Normal S2, No Murmurs Lungs Clear to Auscultation, Normal Air Movement Abdomen Normal Bowel Sounds, Soft, No Tenderness Neurological Normal Gait, Normal Speech, Strength at 5/5 X4 Ext, Normal Tone Extremities No Clubbing, No Cyanosis, No Edema Vascular Normal Pulses, Pulses Symmetrical Last 24 Hrs of Labs/[place]: Laboratory Tests 02/18/172004: Troponin I < 0.01, D-Dimer 331 H 02/18/17 1357: Anion Gap 9, Estimated GFR > 60, BUN/Creatinine Ratio 8.6, Glucose 103 H, Calcium 9.6, Magnesium 1.9, Troponin I < 0.01, CBC w Diff NO MAN DIFF REQ, RBC 4.50, MCV 88.9, MCH 28.6, RDW 13.4, MPV 7.1 L, Gran % 66.4, Lymphocytes % 20.8, Monocytes % 5.9, Eosinophils % 6.1 H, Basophils % 0.8, Absolute Granulocytes 4.1, Absolute Lymphocytes 1.3, Absolute Monocytes 0.4, Absolute Eosinophils 0.4, Absolute Basophils 0.1, PUBS MCHC 32.1 L Assessment/Plan Assessment: Patient is a 46 YO F with PMH significant for CAD s/p single vessel CABG 2000, Stable angina, HTN, HLD, Complicated migranes, Asthma (on inhalers), Anxiety, depression, PTSD came to the ER with chest pain. Pain changes with breathing, radiates to back, left arm, jaw. ER Course VS Afebrile, HR 68-70, BP 119/69mmHg, room air Labs are unremarkable, CXR normal EKG - no significant changes compared to previous ekg. Last ECHO - 10/11/16: EF 45% Severe apical hypokinesis with pulmonary and mitral regurgitation. Plan Acute coronary syndrome * Progressive stable angina with recent cath showing atresia of WOO to LAD graft. * Appears cardiac - dull, substernal, relieves with nitroglycerine, however other causes like PE/Oesophageal spasm cannot be ruled out as her pain is pleuritic and episodic respectively * Telemetry monitoring * Trending EKG/Trops - 3 sets * DA score of 4 - given on aspirin, CAD risk factors>3, >2 episodes past 24hrs , prior CAD with a risk of 20% chance of adverse effects * NG ointment given in ER along with asprin 325mg, Morphine, Ketorolac * on board History of hypertension * Lisinopril 5mg daily, Metoprolol xL 100mg History of Hyperlipidemia * Rosuvastatin 40mg at home * started on atorvastatin 80mg now Complicated Migranes * Presents with weakness of the upper extremities. * Recently her topiramate increased to 200mg BID - we will continue Mental Health * Follows * On Prazosin 2mg daily, sertaline 100mg, Zolpidem 10mg dialy DVT Prophylaxis * SC lovenox Code Status * Full Code As Ranked By This Provider Problem List: 1. ACS (acute coronary syndrome) 2. Chest pain at rest 3. Chest wall pain 4. CAD (coronary artery disease) 5. Atypical migraine 6. Atypical chest pain 7. Hypertension 8. Anxiety 9. Depression 10. Hyperlipidemia Core Measures/Miscellaneous Acute Coronary Syndrome ACS Diagnosis: Yes Date of most recent Echo 10/11/16 Last Known EF % 45 ASA W/I 24hr of admit Yes Beta-Adrienne W/I 24hrs Yes Currently on Statin Yes Cerebrovascular Accident CVA/TIA Diagnosis: No Congestive Heart Failure CHF Diagnosis: No Venous Thromboembolism VTE Risk Factors: Immobility, paresis [facility] prophylaxis d/t: No contraindications No VTE Pharm Prophylaxis d/t: No contraindications VTE Diagnosis: No VTE Type: NONE VTE Confirmed by (Test): NONE Severe Sepsis Severe Sepsis Present: No Septic Shock Septic Shock Present: No Miscellaneous Documentation Attending Case Discussed With: OMARI SALAZAR MD Primary Care Physician: ARIEL LIMON MD Patient sees these Specialists Dr.Woodworth Baumann Level of Patient Care: Telemetry OMARI SALAZAR MD 02/18/171936: General Information and HPI Allergies/Medications Home Med list Aspirin (Ecotrin*) 81 MG TABLET.DR 1 TAB PO DAILY HEART/BLOOD (Reported) Isosorbide Mononitrate (Isosorbide Mononitrate ER) 30 MG TAB.ER.24H 1 TAB PO QAM HEART (Reported) Lisinopril 5 MG TABLET 1 TAB PO DAILY Hypertension/CHF Metoprolol Succ XL (Toprol XL) 100 MG TAB.ER.24H 1 TAB PO BID MIGRAINE Multivitamin (Multiple Vitamins) 1 EACH TABLET 1 TAB PO DAILY SUPPLEMENT ( Reported) NOT TAKEN IN HOSPITAL Nitroglycerin (Nitrostat) 0.4 MG TAB.SUBL 1 TAB SL AD PRN CHEST PAIN ( Reported) 1st sign of attack; may repeat every 5 minutes until relief; if pain persists after 3 tablets in 15 minutes, prompt medical att Omeprazole 20 MG CAPSULE.DR 1 CAP PO SI acid reflux Take one tablet prior to taking the ibuprofen tablet. Prazosin HCl 2 MG CAPSULE 2 CAP PO QPM SLEEP (Reported) Rosuvastatin Calcium (Crestor) 40 MG TABLET 1 TAB PO DAILY CHOLESTEROL ( Reported) Sertraline HCl (Zoloft) 100 MG TABLET 2 TAB PO DAILY DEPRESSION (Reported) Sumatriptan Succinate (Imitrex) 50 MG TABLET 1 TAB PO AD Migraine take one tab at the onset of the headache Take a second tab 2 hrs After if migraine persists and call PCP/neurologist Topiramate 200 MG TABLET 1 TAB PO BID MIGRAINES (Reported) Zolpidem Tartrate (Ambien) 10 MG TABLET 1 TAB PO QPM SLEEP (Reported) Attending MD Review Statement Attending Statement Attending MD Statement: examined this patient, discuss w/resident/PA/RESTAURANT AREA MANAGER, agreed w/resident/PA/RESTAURANT AREA MANAGER, discussed with family, reviewed EMR data (avail), discussed with nursing, reviewed images, amended to note Attending Assessment/Plan: The patient is a 46-year-old female who follows up with me in the office with history of CAD, status post single-vessel CABG in 2000 with WOO to LAD. Her most recent cardiac catheterization in 2016 revealed no evidence of obstructive disease, however WOO to LAD was noted to be atretic. She presents with complaint of chest discomfort. She describes the discomfort as a sharp pleuritic pain in the substernal region radiating to the left arm. The pain has been intermittent. Each episode has lasted up to 20 minutes, and is occurring multiple times per day. The pain is a 9 out of 10 in severity. Review of systems: No fever. No chills. No rash. No tremor. No melena. All other systems are reviewed and are noted to be negative. physical examination: Gen: The patient is in no acute distress HEENT: Normal nose, ears, and oropharynx. Pupils equal bilaterally. Conjunctiva normal. Neck: Supple with no JVD, no masses, and no thyromegaly Lungs: Clear to auscultation with normal respiratory effort Heart: RRR, S1, S2, no murmurs. No peripheral edema, 2+ pulses in the lower extremities bilaterally Abdomen: Soft, nontender, no masses. No hepatomegaly. No splenomegaly Extremities: No clubbing or cyanosis. Normal muscle strength in the upper and lower extremities. Skin: Normal skin turgor with no skin ulcers or lesions noted. Neuro: Cranial nerves intact. Sensation intact Psych: Alert and oriented 3 with appropriate affect Chest x-ray February 18, 2017: No acute or active pulmonary process. The lungs appear clear. EKG tracing is independently reviewed, and reveals sinus rhythm at 72 with possible anteroseptal infarct age undetermined Assessment: 1. History of CAD, status post single vessel CABG 2. Cardiac catheterization in general 2016 showed no obstructive disease, however WOO graft to LAD was atretic 3. Chest pain, mostly atypical. Need to rule out acute coronary syndrome given history of known CAD Plan: * Admit to telemetry * Echocardiogram * Check serial troponin to rule out myocardial infarction * Treated with nitrates as needed * A new cardiac medications
--- NOTE | 2017-02-18 17:27 | NUR ---
PT TO GO TO ROOM 174-2
--- NOTE | 2017-02-18 18:02 | NUR ---
REPORT CALLED TO ABRAHAM ON TELE UNIT
[2017-02-18 19:27] VITALS: BP 118/58
[2017-02-19 01:22] VITALS: BP 112/72
[2017-02-19 03:02] LABS: ABSOLUTE BASOPHIL COUNT 0 /CUMM (0.0-0.2); ABSOLUTE EOSINOPHIL COUNT 0.3 /CUMM (0.0-0.7); ABSOLUTE GRANULOCYTE CT 3.4 /CUMM (1.4-6.5); ABSOLUTE LYMPH COUNT 2.1 /CUMM (1.2-3.4); ABSOLUTE MONOCYTE COUNT 0.4 /CUMM (0.10-0.60); BASOPHIL % 0.6 % (0.0-2.0); EOSINOPHIL % 5.4 % (0-5); GRANULOCYTE % 54.1 % (42.2-75.2); HEMATOCRIT 37.1 % (37-47); MEAN CORPUSCULAR HGB 29.1 PG (27.0-31.0); MEAN CORPUSCULAR HGB CONC 32.9 G/DL (33.0-37.0); MEAN CORPUSCULAR VOLUME 88.6 FL (81.0-99.0); MEAN PLATELET VOLUME 7.1 FL (7.4-10.4); PLATELET COUNT 240 /CUMM (130-400); RBC DISTRIBUTION WIDTH 13.6 % (11.5-14.5); RED BLOOD CELL CT 4.19 /CUMM (4.20-5.40); WHITE BLOOD CELL COUNT 6.3 /CUMM (4.8-10.8)
--- NOTE | 2017-02-19 07:15 | PN- Housestaff ---
Subjective Follow-up For: acute coronary syndrome Tele-Events Since Last Visit: NSR Subjective: I saw and examined the patient today morning she slept well, still reports chest pain radiating to the back, changes with breathing, denies any dizziness, lightheadedness. Able to walk around. Review of Systems Constitutional: Reports: see HPI. Comments: ROS negative except the above. Objective Last 24 Hrs of Vital Signs/I&O Vital Signs Date Time Temp Pulse Resp B/P Pulse O2 O2 Flow FiO2 Ox Delivery Rate 02/19 0122 98.3 64 16 112/72 96 Room Air 02/18 213 60 130/80 02/18 2139 60 130/80 02/18 1946 Room Air 02/18 1927 98.6 68 18 118/58 98 Room Air 02/18 1738 60 113/68 98 Room Air 02/18 1413 98.8 70 20 114/56 98 Room Air 02/18 1249 68 18 119/69 96 Room Air 02/18 1233 96 Room Air 02/18 1151 99.2 68 20 141/74 96 Room Air Intake & Output 02/19 0800 02/19 0000 02/18 1600 Intake Total 600 Output Total Balance 600 Intake, Oral 600 Patient 99.79 kg 99.79 kg Weight Physical Exam General Appearance: Alert, Oriented X3 Skin: No Rashes HEENT: Atraumatic, PERRLA, EOMI Neck: Supple Cardiovascular: Normal S1, Normal S2, No Murmurs Lungs: Clear to Auscultation, Normal Air Movement Abdomen: Normal Bowel Sounds, Soft, No Tenderness Neurological: Normal Gait, Normal Speech, Strength at 5/5 X4 Ext, Normal Tone Extremities: No Clubbing, No Cyanosis, No Edema Vascular: Normal Pulses, Pulses Symmetrical Current Medications: Current Medications Sig/Juan Start time Last Medication Dose Route Stop Time Status Admin Acetaminophen 650 MG Q6P PRN 02/18 184 AC PO Acetaminophen 1,000 MG Q6P PRN 02/18 1845 AC 02/18 IV 2139 Aspirin 0 .STK-MED ONE 02/18 1648 DC PO Aspirin 325 MG ONCE ONE 02/18 1615 DC 02/18 PO 02/18 1616 1648 Aspirin Buffered 81 MG DAILY 02/19 1000 AC PO Atorvastatin Calcium 80 MG 1700 02/19 1700 AC PO Enoxaparin Sodium 40 MG DAILY 02/18 1813 AC 02/18 SC 2138 Isosorbide 30 MG QAM 02/18 1902 AC Mononitrate PO Ketorolac 0 .STK-MED ONE 02/18 1418 DC Tromethamine .ROUTE Ketorolac 30 MG ONCE ONE 02/18 1330 DC 02/18 Tromethamine IV 02/18 1331 1425 Lisinopril 5 MG DAILY 02/19 1000 AC PO Metoprolol Succinate 100 MG BID 02/18 2200 AC 02/18 PO 2139 Morphine Sulfate 2 MG Q6P PRN 02/18 1845 AC 02/19 IV 0706 Morphine Sulfate 4 MG ONCE ONE 02/18 1615 DC 02/18 IV 02/18 1616 1615 Morphine Sulfate 0 .STK-MED ONE 02/18 1613 DC .ROUTE Nitroglycerin 0 .STK-MED ONE 02/18 1418 DC TOP Nitroglycerin 0.5 GM ONCE ONE 02/18 1345 DC 02/18 TOP 02/18 1346 1425 Omeprazole 20 MG DAILY 02/19 1000 AC PO Oxycodone/ 1 TAB ONCE ONE 02/18 1900 DC 02/18 Acetaminophen PO 02/18 1901 1852 Oxycodone/ 1 TAB Q6P PRN 02/18 1845 CAN Acetaminophen PO Prazosin HCl 4 MG QPM 02/18 2200 AC 02/18 PO 2139 Sertraline HCl 200 MG DAILY 02/19 1000 AC PO Topiramate 200 MG BID 02/18 2200 AC 02/18 PO 2139 Zolpidem Tartrate 10 MG QPM 02/18 2200 AC 02/18 PO 2140 Zolpidem Tartrate 10 MG .STK-MED ONE 02/18 2135 DC PO 02/19 2136 Last 24 Hrs of Lab/[place] Results Last 24 Hrs of Labs/Mics: Laboratory Tests 02/19/17 0235: Troponin I < 0.01 02/19/17 0235: Anion Gap 9, Estimated GFR > 60, BUN/Creatinine Ratio 16.3, CBC w Diff NO MAN DIFF REQ, RBC 4.19 L, MCV 88.6, MCH 29.1, RDW 13.6, MPV 7.1 L, Gran % 54.1, Lymphocytes % 33.8, Monocytes % 6.1, Eosinophils % 5.4 H, Basophils % 0.6, Absolute Granulocytes 3.4, Absolute Lymphocytes 2.1, Absolute Monocytes 0.4, Absolute Eosinophils 0.3, Absolute Basophils 0, PUBS MCHC 32.9 L 02/18/172004: Troponin I < 0.01, D-Dimer 331 H Lines/Diet/Fluids Lines: peripheral lines Assessment/Plan Assessment: Patient is a 46 YO F with PMH significant for CAD s/p single vessel CABG 2000, Stable angina, HTN, HLD, Complicated migranes, Asthma (on inhalers), Anxiety, depression, PTSD came to the ER with chest pain. Pain changes with breathing, radiates to back, left arm, jaw. ER Course VS Afebrile, HR 68-70, BP 119/69mmHg, room air Labs are unremarkable, CXR normal EKG - no significant changes compared to previous ekg. Last ECHO - 10/11/16: EF 45% Severe apical hypokinesis with pulmonary and mitral regurgitation. Plan Acute coronary syndrome * Progressive stable angina with recent cath showing atresia of WOO to LAD graft. * Appears cardiac - dull, substernal, relieves with nitroglycerine, however other causes like PE/Oesophageal spasm cannot be ruled out as her pain is pleuritic and episodic respectively * Telemetry monitoring * 3sets of EKG and trops are negative. * Patient is still symtomatic so scheduled for stress test on wednesday morning, NPO wednesday night. * NG ointment given in ER along with asprin 325mg, Morphine, Ketorolac Recent Postive PPD * Patient underwent a PPD test before admission * It turned out to be positive, but CXR was negative. * Eventually isoniazid need to be started as outpatient History of hypertension * Lisinopril 5mg daily, Metoprolol xL 100mg History of Hyperlipidemia * Rosuvastatin 40mg at home * started on atorvastatin 80mg now Complicated Migranes * Presents with weakness of the upper extremities. * Recently her topiramate increased to 200mg BID - we will continue Mental Health * Follows * On Prazosin 2mg daily, sertaline 100mg, Zolpidem 10mg dialy DVT Prophylaxis * SC lovenox Code Status * Full Code Problem List: 1. CAD (coronary artery disease) Pain Ratin Pain Location: chest pain Pain Goal: Pain 4 or less Pain Plan: Tylenol SL nitroglycerine Tomorrow's Labs & Rationales: none
[2017-02-19 09:05] VITALS: BP 110/68
--- NOTE | 2017-02-19 12:14 | PN- Cardiology ---
See Addendum LIONEL LIVE,MARITZA 02/19/17 1208: Subjective Subjective: Patient seen and examined, states that she had intermittent episodes of chest pain last night and again this morning. States is a squeezing-like chest pain that "comes and goes". No ectopy on the monitor. Objective Vital Signs and I&Os Vital Signs Date Time Temp Pulse Resp B/P Pulse O2 O2 Flow FiO2 Ox Delivery Rate 02/19 0942 60 110/68 02/19 0942 60 110/68 02/19 0941 60 110/68 02/19 0905 98.8 60 18 110/68 94 Room Air 02/19 0800 Room Air 02/19 0122 98.3 64 16 112/72 96 Room Air 02/18 2139 60 130/80 02/18 2139 60 130/80 02/18 1946 Room Air 02/18 1927 98.6 68 18 118/58 98 Room Air 02/18 1738 60 113/68 98 Room Air 02/18 1413 98.8 70 20 114/56 98 Room Air 02/18 1249 68 18 119/69 96 Room Air 02/18 1233 96 Room Air Intake & Output 02/19 1600 02/19 0800 02/19 0000 02/18 1600 02/18 0800 02/18 0000 Intake Total 600 Output Total Balance 600 Intake, Oral 600 Patient 220 lb 220 lb Weight Physical Exam General Appearance: well developed/nourished, no apparent distress, alert, awake , comfortable Head: atraumatic, normal appearance Ears, Nose, Throat: normal pharynx, normal ENT inspection, hearing grossly normal Respiratory: normal breath sounds, chest non-tender, no respiratory distress Cardiovascular: regular rate/rhythm Abdomen: normal bowel sounds, soft, non-tender Back: normal inspection, normal range of motion Current Medications: Current Medications Sig/Juan Start time Last Medication Dose Route Stop Time Status Admin Acetaminophen 650 MG Q6P PRN 02/18 1845 AC 02/19 PO 0947 Acetaminophen 1,000 MG Q6P PRN 02/18 1845 AC 02/18 IV 2139 Aspirin 0 .STK-MED ONE 02/18 1648 DC PO Aspirin 325 MG ONCE ONE 02/18 1615 DC 02/18 PO 02/18 1616 1648 Aspirin Buffered 81 MG DAILY 02/19 1000 AC 02/19 PO 0941 Atorvastatin Calcium 80 MG 1700 02/19 1700 AC PO Enoxaparin Sodium 40 MG DAILY 02/18 1813 AC 02/19 SC 0942 Isosorbide 30 MG QAM 02/18 1902 AC 02/19 Mononitrate PO 0941 Ketorolac 0 .STK-MED ONE 02/18 1418 DC Tromethamine .ROUTE Ketorolac 30 MG ONCE ONE 02/18 1330 DC 02/18 Tromethamine IV 02/18 1331 1425 Lisinopril 5 MG DAILY 02/19 1000 AC 02/19 PO 0942 Metoprolol Succinate 100 MG BID 02/18 2200 AC 02/19 PO 0942 Morphine Sulfate 2 MG Q6P PRN 02/18 1845 AC 02/19 IV 0706 Morphine Sulfate 4 MG ONCE ONE 02/18 1615 DC 02/18 IV 02/18 1616 1615 Morphine Sulfate 0 .STK-MED ONE 02/18 1613 DC .ROUTE Nitroglycerin 0 .STK-MED ONE 02/18 1418 DC TOP Nitroglycerin 0.5 GM ONCE ONE 02/18 1345 DC 02/18 TOP 02/18 1346 1425 Omeprazole 20 MG DAILY 02/19 1000 AC 02/19 PO 0941 Oxycodone/ 1 TAB ONCE ONE 02/18 1900 DC 02/18 Acetaminophen PO 02/18 1901 1852 Oxycodone/ 1 TAB Q6P PRN 02/18 1845 CAN Acetaminophen PO Potassium Chloride 40 MEQ ONCE ONE 02/19 0745 DC 02/19 PO 02/19 0746 0944 Prazosin HCl 4 MG QPM 02/18 2200 AC 02/18 PO 2139 Sertraline HCl 200 MG DAILY 02/19 1000 AC 02/19 PO 0942 Topiramate 200 MG BID 02/18 2200 AC 02/19 PO 0942 Zolpidem Tartrate 10 MG QPM 02/18 2200 AC 02/18 PO 2140 Zolpidem Tartrate 10 MG .STK-MED ONE 02/18 2135 DC PO 02/18 213 Results Last 48 Hrs of Labs/Mics: Laboratory Tests 02/19/17 0235: Troponin I < 0.01 02/19/17 0235: Anion Gap 9, Estimated GFR > 60, BUN/Creatinine Ratio 16.3, CBC w Diff NO MAN DIFF REQ, RBC 4.19 L, MCV 88.6, MCH 29.1, RDW 13.6, MPV 7.1 L, Gran % 54.1, Lymphocytes % 33.8, Monocytes % 6.1, Eosinophils % 5.4 H, Basophils % 0.6, Absolute Granulocytes 3.4, Absolute Lymphocytes 2.1, Absolute Monocytes 0.4, Absolute Eosinophils 0.3, Absolute Basophils 0, PUBS MCHC 32.9 L 02/18/172004: Troponin I < 0.01, D-Dimer 331 H 02/18/17 1357: Anion Gap 9, Estimated GFR > 60, BUN/Creatinine Ratio 8.6, Glucose 103 H, Calcium 9.6, Magnesium 1.9, Troponin I < 0.01, CBC w Diff NO MAN DIFF REQ, RBC 4.50, MCV 88.9, MCH 28.6, RDW 13.4, MPV 7.1 L, Gran % 66.4, Lymphocytes % 20.8, Monocytes % 5.9, Eosinophils % 6.1 H, Basophils % 0.8, Absolute Granulocytes 4.1, Absolute Lymphocytes 1.3, Absolute Monocytes 0.4, Absolute Eosinophils 0.4, Absolute Basophils 0.1, PUBS MCHC 32.1 L Recent Imaging Studies: PATIENT: CHEVY LEÓN PRESENT AGE: 46 PATIENT ACCOUNT NO: [id number] : 72 LOCATION: [facility] ORDERING PHYSICIAN: JUAN PABLO GARSIA MD SERVICE DATE: 02/18/17 EXAM TYPE: RAD - XRY-PORTABLE CHEST XRAY EXAMINATION: XR PORTABLE CHEST CLINICAL INFORMATION: Positive PPD. Chest pain. COMPARISON: Chest x-ray and chest CT of 11/19/2016, chest x-rays of 08/06/2016 and multiple previous chest x-rays dated back to 09/19/2013. TECHNIQUE: Portable AP view of the chest was obtained. FINDINGS: The cardiomediastinal silhouette is stable with the mild cardiomegaly. The visualized sternotomy wires appear intact. The lungs are normally and symmetrically expanded. No focal consolidation, changes of congestion or pleural effusions. No pneumothorax. IMPRESSION: No acute or active pulmonary process. The lungs appear clear. DICTATED BY: BENJA LIVE,ANAL DATE/TIME DICTATED:02/18/171347 BACKGROUND CHECK COORDINATOR:GHANSHYAM DATE/TIME TRANSCRIBED:03/30/17 / 1348 CONFIDENTIAL, DO NOT COPY WITHOUT APPROPRIATE AUTHORIZATION. <Electronically signed in Other Vendor System> SIGNED BY: BENJA LIVE,GERMAIN 02/18/17 8127 Assessment/Plan Assessment/Plan 46-year-old lady with a history of coronary artery disease status post single- vessel CABG in 2000, recent cardiac cath in 2016 showing no obstructive disease. Admitted for chest discomfort. She continues to have intermittent episodes of chest pain that last 10-15 minutes they occur multiple times a day. Telemetry monitoring reveals no arrhythmias. Assessment- 1. History of coronary artery disease, status post CABG in 2000 2. Chest pain, without acute EKG changes and negative troponins 3. Recent cardiac cath in 2016, feeling no shortness of disease 4. Hypertension 5. Hyperlipidemia 6. Anxiety disorder Plan- - obtain echocardiogram - Continue aspirin, statin, beta susana, lisinopril - When necessary sublingual nitroglycerin for recurrent episodes of chest pain so long as the blood pressure allows - Likely will need a Persantine stress test on Wednesday Continue telemetry? Yes KONSTANTIN LIVE,ALLYSON Jose Manuel 02/19/17 2491: Assessment/Plan Assessment/Plan Attending addendum: The patient was seen and examined. The case was discussed with the house staff. I agree with the plan as noted above. In view of the patient's history, and in view of the fact that she continues to have episodes of chest discomfort of unclear etiology, I believe that the patient should be monitored further and, if necessary, have a pharmacologic nuclear stress test prior to discharge. I discussed the case with Dr. Goff who agrees. 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 Further plans after the nuclear stress test.
[2017-02-19 16:37] VITALS: BP 98/58
[2017-02-20 00:15] VITALS: BP 118/82
[2017-02-20 09:00] VITALS: BP 116/60
--- NOTE | 2017-02-20 09:37 | PN- Housestaff ---
Subjective Follow-up For: Chest pain. Tele-Events Since Last Visit: Sinus rhythm Subjective: Continues to have chest pain radiating to the back. Intermittent, episodes last 15-20 minutes, twice every hour. Morphine helps with the pain, but gives her headache. Requests Dilaudid. No shortness of breath. No GI symptoms. All other systems reviewed and negative, exceptions above. Review of Systems Constitutional: Reports: see HPI. Objective Last 24 Hrs of Vital Signs/I&O Vital Signs Date Time Temp Pulse Resp B/P Pulse O2 O2 Flow FiO2 Ox Delivery Rate 02/20 09 97.9 61 20 116/60 94 Room Air 02/20 0015 97.2 64 20 118/82 93 02/20 0000 Room Air 02/19 2158 98 Room Air Room Air 02/19 2155 54 02/19 2152 54 02/194 Room Air Room Air 02/19 1637 98.6 55 18 98/58 94 Room Air 02/19 0942 60 110/68 02/19 0942 60 110/68 02/19 0941 60 110/68 Intake & Output 02/20 1600 02/20 0800 02/20 0000 Intake Total 132 702 Output Total Balance 132 702 Intake, IV 12 12 Intake, Oral 120 690 Physical Exam General Appearance: Alert, Oriented X3, Cooperative Cardiovascular: Regular Rate, Normal S1, Normal S2 Lungs: Clear to Auscultation, Normal Air Movement Abdomen: Normal Bowel Sounds, Soft Extremities: No Clubbing, No Cyanosis Assessment/Plan Assessment: 46-year-old woman with past history of coronary artery disease status post CABG in 2000 here with chest pain. 1. Chest pain of unclear etiology: Troponins negative so far, EKG without changes. Continued telemetry monitoring per cardiology. Await pharmacologic nuclear stress test on Wednesday. 2. Hypertension: Well controlled on current meds. Continue. 3. Hyperlipidemia: Continue statin. 4. Continue medications for migraines and mental health. 5. Will change morphine to Dilaudid, according to conversion. Continue DVT prophylaxis. Problem List: 1. Chest pain Pain Ratin Pain Location: Mid chest Pain Goal: Pain 7 or less Pain Plan: Dilaudid Tomorrow's Labs & Rationales: Not needed.
[2017-02-20 16:33] VITALS: BP 98/52
[2017-02-20 16:41] VITALS: BP 108/68
--- NOTE | 2017-02-20 18:06 | PN- Cardiology ---
Subjective Subjective: The patient has occasional chest pains. She was given analgesic for her last episode with some relief. She has no shortness of breath. She denies any palpitations. She has not had any arrhythmias on the monitor. Objective Vital Signs and I&Os Vital Signs Date Time Temp Pulse Resp B/P Pulse O2 O2 Flow FiO2 Ox Delivery Rate 02/20 1641 108/68 02/20 1633 99.2 66 16 98/52 95 Nasal Cannula 02/20 1300 97 Room Air 02/20 1039 70 110/70 02/20 1038 70 110/70 02/20 1038 70 110/70 02/20 0900 97.9 61 20 116/60 94 Room Air 02/20 0015 97.2 64 20 118/82 93 02/20 0000 Room Air 02/19 215 98 Room Air Room Air 02/19 215 54 02/19 215 54 02/194 Room Air Room Air Intake & Output 02/20 1600 02/20 0800 02/20 0000 02/19 1600 02/19 0800 02/19 0000 Intake Total 480 132 702 730.2 600 Output Total Balance 480 132 702 730.2 600 Intake, IV 12 12 10.2 Intake, Oral 480 120 690 720 600 Patient 220 lb 220 lb Weight Physical Exam: She is in no distress Chest is clear Heart reveals regular rhythm and no murmurs Current Medications: Current Medications Sig/Juan Start time Last Medication Dose Route Stop Time Status Admin Acetaminophen 650 MG Q6P PRN 02/18 1845 AC 02/20 PO 1039 Acetaminophen 1,000 MG Q6P PRN 02/18 1845 AC 02/18 IV 2139 Albuterol Sulfate 3 ML EVERY 4 HRS/AWAKE .. 02/19 2200 AC 02/19 INH 2158 Albuterol Sulfate 3 ML EVERY 4 HRS/AWAKE .. 02/19 2145 DC INH Aspirin Buffered 81 MG DAILY 02/19 1000 AC 02/20 PO 1038 Atorvastatin Calcium 80 MG 1700 02/19 1700 AC 02/20 PO 1610 Enoxaparin Sodium 40 MG DAILY 02/18 1813 AC 02/20 SC 1038 Hydromorphone HCl 0.4 MG Q6P PRN 02/20 1130 AC 02/20 IV 1745 Isosorbide 30 MG QAM 02/18 1902 AC 02/20 Mononitrate PO 1038 Lisinopril 5 MG DAILY 02/19 1000 AC 02/20 PO 1038 Metoprolol Succinate 100 MG BID 02/180 AC 02/20 PO 1039 Morphine Sulfate 2 MG Q6P PRN 02/18 1845 DC 02/20 IV 0639 Omeprazole 20 MG DAILY 02/19 1000 AC 02/20 PO 1038 Prazosin HCl 4 MG QPM 02/18 2200 AC 02/19 PO 2152 Sertraline HCl 200 MG DAILY 02/19 1000 AC 02/20 PO 1039 Topiramate 200 MG BID 02/18 2200 AC 02/20 PO 1038 Zolpidem Tartrate 10 MG QPM 02/18 2200 AC 02/19 PO 2152 Results Last 48 Hrs of Labs/Mics: Laboratory Tests 02/19/17234: Troponin I < 0.01 02/19/17234: Anion Gap 9, Estimated GFR > 60, BUN/Creatinine Ratio 16.3, CBC w Diff NO MAN DIFF REQ, RBC 4.19 L, MCV 88.6, MCH 29.1, RDW 13.6, MPV 7.1 L, Gran % 54.1, Lymphocytes % 33.8, Monocytes % 6.1, Eosinophils % 5.4 H, Basophils % 0.6, Absolute Granulocytes 3.4, Absolute Lymphocytes 2.1, Absolute Monocytes 0.4, Absolute Eosinophils 0.3, Absolute Basophils 0, PUBS MCHC 32.9 L 02/18/172004: Troponin I < 0.01, D-Dimer 331 H Assessment/Plan Assessment/Plan She continues to have occasional chest pain. The plan is for a stress test on February 22 and further evaluation to follow. For now we will keep her on the monitor and continue to treat her chest pain as appropriate. Continue telemetry? Yes
[2017-02-20 23:42] VITALS: BP 102/70
--- NOTE | 2017-02-21 07:34 | PN- Housestaff ---
Subjective Follow-up For: Stable angins -->Unstable angina Pleuritic pain Tele-Events Since Last Visit: Sinus any, sinus rhythm 55-80bpm No overnight events Subjective: I saw and examined the patient today morning She is lying on the bed, reports substernal chest pain at rest, radating to the back, left arm, worse with breathing. Associated with headache and dizziness. It appears more subjective. Review of Systems Constitutional: Reports: see HPI. Comments: ROS negative except the above. Objective Last 24 Hrs of Vital Signs/I&O Vital Signs Date Time Temp Pulse Resp B/P Pulse O2 O2 Flow FiO2 Ox Delivery Rate 02/20 2352 102/64 02/20 2352 102/64 02/20 2342 98.4 67 18 102/70 96 Room Air 02/20 1840 97 Room Air 02/20 1641 108/68 02/20 1633 99.2 66 16 98/52 95 Nasal Cannula 02/20 1300 97 Room Air 02/20 1039 70 110/70 02/20 1038 70 110/70 02/20 1038 70 110/70 02/20 0900 97.9 61 20 116/60 94 Room Air Intake & Output 02/21 0800 02/21 0000 02/20 1600 Intake Total 120 400 480 Output Total 350 550 Balance -230 -150 480 Intake, IV 10 Intake, Oral 110 400 480 Output, Urine 350 550 Physical Exam General Appearance: Alert, Oriented X3, Cooperative Skin: No Rashes, No Breakdown HEENT: Atraumatic, PERRLA, EOMI Neck: Supple Cardiovascular: Normal S1, Normal S2, No Murmurs, nontender to palpation at costochondral junction Lungs: Clear to Auscultation, Normal Air Movement Abdomen: Normal Bowel Sounds, Soft, No Tenderness Neurological: Normal Speech, Strength at 5/5 X4 Ext, Normal Tone, Sensation Intact Extremities: No Clubbing, No Cyanosis, No Edema Vascular: Normal Pulses, Pulses Symmetrical Current Medications: Current Medications Sig/Juan Start time Last Medication Dose Route Stop Time Status Admin Acetaminophen 650 MG Q6P PRN 02/18 1845 AC 02/20 PO 1039 Acetaminophen 1,000 MG Q6P PRN 02/18 1845 AC 02/18 IV 2139 Albuterol Sulfate 3 ML EVERY 4 HRS/AWAKE .. 02/19 220 AC 02/19 INH 2158 Aspirin Buffered 81 MG DAILY 02/19 1000 AC 02/21 PO 1005 Atorvastatin Calcium 80 MG 1700 02/19 1700 AC 02/20 PO 1610 Enoxaparin Sodium 40 MG DAILY 02/18 1813 AC 02/21 SC 1006 Hydromorphone HCl 0.4 MG Q6P PRN 02/20 1130 AC 02/21 IV 0814 Isosorbide 30 MG QAM 02/18 1902 AC 02/21 Mononitrate PO 1005 Lisinopril 5 MG DAILY 02/19 1000 AC 02/21 PO 1005 Metoprolol Succinate 100 MG BID 02/18 2200 AC 02/21 PO 1006 Omeprazole 20 MG DAILY 02/19 1000 AC 02/21 PO 1005 Prazosin HCl 4 MG QPM 02/18 2200 AC 02/20 PO 2352 Sertraline HCl 200 MG DAILY 02/19 1000 AC 02/21 PO 1006 Topiramate 200 MG BID 02/18 2200 AC 02/21 PO 1005 Zolpidem Tartrate 10 MG QPM 02/18 2200 AC 02/20 PO 2146 Lines/Diet/Fluids Lines: peripheral lines Assessment/Plan Assessment: 46-year-old woman with past history of coronary artery disease status post CABG in 2000 here with chest pain. 1. Chest pain of unclear etiology: Troponins negative so far, EKG without changes. Continued telemetry monitoring per cardiology. Await pharmacologic nuclear stress test tomorrow. On dilaudid 0.4 Q6 for chest pain. 2. Hypertension: Well controlled on current meds. Continue. 3. Hyperlipidemia: Continue statin. 4. Continue medications for migraines and mental health. 5. Will change morphine to Dilaudid, according to conversion. Continue DVT prophylaxis. Problem List: 1. CAD (coronary artery disease) 2. Atypical migraine 3. ACS (acute coronary syndrome) 4. Chest pain at rest Pain Ratin Pain Location: chest pain Pain Goal: Remain pain free Pain Plan: Dilaudid 0.4 Q6PRN Tomorrow's Labs & Rationales: bep to monitor renal function
[2017-02-21 08:57] VITALS: BP 118/62
--- NOTE | 2017-02-21 13:51 | NUR ---
AT 1300 PT C/O FEELING WEAK AND HAVING CHEST PAIN THAT HAS BEEN NOT IMPROVED SINCE ADMISSION. DR. GARAY INFORMED AND IN TO SEE PT. LABS ORDERED VSS. INSTRUCTED BY TO GIVEN IV DILAUDID EARLY. PT RESTING AT THIS TIME. WILL CONTINUE TO MONITOR.
--- NOTE | 2017-02-21 14:09 | PN- Cardiology ---
Subjective Subjective: The patient continues to have occasional nonexertional atypical chest pain. She is receiving Dilaudid for this. Otherwise she has no specific complaints. She had her echocardiogram which on preliminary review shows good left ventricular systolic function. Objective Vital Signs and I&Os Vital Signs Date Time Temp Pulse Resp B/P Pulse O2 O2 Flow FiO2 Ox Delivery Rate 02/21 1249 94 Room Air Room Air 02/21 1006 72 118/62 / 1005 72 118/62 02/21 1005 72 118/62 02/21 0857 98.0 72 20 118/62 95 Room Air 02/20 2352 102/64 02/20 2352 102/64 02/20 2342 98.4 67 18 102/70 96 Room Air 02/20 1840 97 Room Air 02/20 1641 108/68 02/20 1633 99.2 66 16 98/52 95 Nasal Cannula Intake & Output 02/21 1600 02/21 0800 02/21 0000 02/20 1600 02/20 0800 02/20 0000 Intake Total 120 400 480 132 702 Output Total 350 550 Balance -230 -150 480 132 702 Intake, IV 10 12 12 Intake, Oral 110 400 480 120 690 Output, Urine 350 550 Physical Exam: She is in no distress HEENT exam is normal Chest is clear Heart is regular rhythm with no murmurs Current Medications: Current Medications Sig/Juan Start time Last Medication Dose Route Stop Time Status Admin Acetaminophen 650 MG Q6P PRN 02/18 1845 AC 02/20 PO 1039 Acetaminophen 1,000 MG Q6P PRN 02/18 1845 AC 02/18 IV 2139 Albuterol Sulfate 3 ML EVERY 4 HRS/AWAKE .. 02/19 2200 AC 02/19 INH 2158 Aspirin Buffered 81 MG DAILY 02/19 1000 AC 02/21 PO 1005 Atorvastatin Calcium 80 MG 1700 02/19 1700 AC 02/20 PO 1610 Enoxaparin Sodium 40 MG DAILY 02/18 1813 AC 02/21 SC 1006 Hydromorphone HCl 0.4 MG Q6P PRN 02/20 1130 AC 02/21 IV 1335 Isosorbide 30 MG QAM 02/18 1902 AC 02/21 Mononitrate PO 1005 Lisinopril 5 MG DAILY 02/19 1000 AC 02/21 PO 1005 Metoprolol Succinate 100 MG BID 02/18 2200 AC 02/21 PO 1006 Omeprazole 20 MG DAILY 02/19 1000 AC 02/21 PO 1005 Prazosin HCl 4 MG QPM 02/18 2200 AC 02/20 PO 2352 Sertraline HCl 200 MG DAILY 02/19 1000 AC 02/21 PO 1006 Topiramate 200 MG BID 02/18 2200 AC 02/21 PO 1005 Zolpidem Tartrate 10 MG QPM 02/18 2200 AC 02/20 PO 2146 Results Last 48 Hrs of Labs/Mics: Laboratory Tests 02/21/17 1346: Troponin I Pending, D-Dimer Pending Assessment/Plan Assessment/Plan She continues to have occasional chest pain. The plan is for a stress test tomorrow and further evaluation to follow. For now we will keep her on the monitor and continue to treat her chest pain as appropriate. She should be nothing by mouth after midnight tonight. Continue telemetry? Yes
[2017-02-21 16:54] VITALS: BP 110/60
[2017-02-22 00:17] VITALS: BP 104/64
--- NOTE | 2017-02-22 07:12 | PN- Housestaff ---
Subjective Follow-up For: Atypical chest pain Tele-Events Since Last Visit: Sinus rhythm 63-68 Subjective: I saw and examined the patient today morning She still reports chest pain, but unrelated to exertion. NPO from midnight. We will further evaluate her with exercise stress test today. Review of Systems Constitutional: Reports: see HPI. Cardiovascular: Reports: chest pain. Comments: ROS negative except the above. Objective Last 24 Hrs of Vital Signs/I&O Vital Signs Date Time Temp Pulse Resp B/P Pulse O2 O2 Flow FiO2 Ox Delivery Rate 02/22 0017 98.2 64 20 104/64 95 Room Air 04/ 2154 59 04/ 2154 59 / 2000 98 Room Air Room Air 02/21 1654 97.6 67 20 110/60 95 Room Air 02/21 1249 94 Room Air Room Air 02/21 1006 72 118/62 /02 1005 72 118/62 02/21 1005 72 118/62 02/21 0857 98.0 72 20 118/62 95 Room Air Intake & Output 02/22 0800 02/22 0000 02/21 1600 Intake Total 10 491 480 Output Total Balance 10 491 480 Intake, IV 10 11 Intake, Oral 0 480 480 Physical Exam General Appearance: Alert, Oriented X3, Cooperative Skin: No Rashes, No Breakdown HEENT: Atraumatic, PERRLA, EOMI Neck: Supple Cardiovascular: Regular Rate, Normal S1, Normal S2, No Murmurs Lungs: Clear to Auscultation, Normal Air Movement Abdomen: Normal Bowel Sounds, Soft, No Tenderness Neurological: Normal Speech, Strength at 5/5 X4 Ext, Sensation Intact Extremities: No Clubbing, No Cyanosis, No Edema Current Medications: Current Medications Sig/Juan Start time Last Medication Dose Route Stop Time Status Admin Acetaminophen 650 MG Q6P PRN 02/18 184 AC 02/20 PO 1039 Acetaminophen 1,000 MG Q6P PRN 02/18 1845 AC 02/18 IV 2139 Albuterol Sulfate 3 ML EVERY 4 HRS/AWAKE .. 02/19 2200 AC 02/19 INH 2158 Aspirin Buffered 81 MG DAILY 02/19 1000 AC 02/21 PO 1005 Atorvastatin Calcium 80 MG 1700 02/19 1700 AC 02/21 PO 1629 Enoxaparin Sodium 40 MG DAILY 02/18 1813 AC 02/21 SC 1006 Hydromorphone HCl 0.4 MG Q6P PRN 02/20 1130 AC 02/22 IV 0803 Isosorbide 30 MG QAM 02/18 1902 AC 02/21 Mononitrate PO 1005 Lisinopril 5 MG DAILY 02/19 1000 AC 02/21 PO 1005 Metoclopramide HCl 10 MG ONCE ONE 02/21 1700 DC 04/ IV 02/21 1701 1811 Metoprolol Succinate 100 MG BID 02/18 2200 DC 02/21 PO 1006 Omeprazole 20 MG DAILY 02/19 1000 AC 02/21 PO 1005 Oxycodone HCl 10 MG Q12 02/22 1000 AC PO Prazosin HCl 4 MG QPM 02/18 2200 AC 02/21 PO 2154 Sertraline HCl 200 MG DAILY 02/19 1000 AC 02/21 PO 1006 Topiramate 200 MG BID 02/18 2200 AC 02/21 PO 2154 Zolpidem Tartrate 10 MG QPM 02/18 2200 AC 02/21 PO 2154 Last 24 Hrs of Lab/[place] Results Last 24 Hrs of Labs/Mics: Laboratory Tests 02/22/17 0640: Anion Gap 9, Estimated GFR > 60, BUN/Creatinine Ratio 18.8 02/21/17 1346: Troponin I < 0.01, D-Dimer 384 H Lines/Diet/Fluids Lines: peripheral lines Assessment/Plan Assessment: 46-year-old woman with past history of coronary artery disease status post CABG in 2000 here with chest pain. 1. Chest pain of unclear etiology: Troponins negative so far, EKG without changes. Continued telemetry monitoring per cardiology. Await pharmacologic nuclear stress test results. On dilaudid 0.4 Q6 and oxycodone for pain. dpx for chest pain. 2. Hypertension: Well controlled on current meds. Continue. 3. Hyperlipidemia: Continue statin. 4. Continue medications for migraines and mental health. 5. Will change morphine to Dilaudid, according to conversion. Continue DVT prophylaxis. Problem List: 1. ACS (acute coronary syndrome) 2. Chest pain at rest 3. CAD (coronary artery disease) 4. Atypical migraine Pain Ratin Pain Location: chest pain Pain Goal: Pain 4 or less Pain Plan: Oxycodone Hcl 10mg Q12 Dilaudid 0.4mg Q6 PRN Tomorrow's Labs & Rationales: none
[2017-02-22 08:27] VITALS: BP 122/72
--- NOTE | 2017-02-22 08:32 | ECHOCARDIOGRAM REPORT ---
CHVEY LEÓN Age: 46 : 1970 Gender: F Exam Date: 02/21/2017 10:45 Exam Location: [address] Ht (in): 64 Wt (lb): 219 BSA: 2.17 BP: 102 / 64 Ordering Physician: MIQUEL CALDERON MD Referring Physician: Anil Goff MD Technologist: Kathy Leonard [facility] Room Number: 174-02 Indications: CHEST PAIN Rhythm: Sinus Technical Quality: Technically difficult study FINDINGS Left Ventricle Normal size left ventricle. Left ventricular ejection fraction is estimated at >55 %. No obvious regional wall motion abnormalities. Mild concentric left ventricular hypertrophy. Right Ventricle Normal right ventricular size and function. Right Atrium Normal right atrial size. Left Atrium Normal left atrial size. Mitral Valve Mild mitral annular calcification. Mild mitral regurgitation. Aortic Valve Aortic valve mildly thickened. No aortic stenosis. No aortic regurgitation. Tricuspid Valve Tricuspid valve not well visualized, grossly normal. Trace tricuspid regurgitation. No evidence of pulmonary hypertension. No evidence of pulmonary hypertension. Pulmonic Valve Pulmonic valve not well visualized, grossly normal. Pericardium No pericardial effusion. Great Vessels Normal size aortic root. CONCLUSIONS Normal size left ventricle. Left ventricular ejection fraction is estimated at >55 %. Mild concentric left ventricular hypertrophy. Mild mitral regurgitation. Trace tricuspid regurgitation. Anil Goff M.D. (Electronically Signed) Final Date: 22 February 2017 08:31 MEASUREMENTS (Male / Female) Normal Values 2D ECHO LV Diastolic Diameter PLAX 5.2 cm 4.2 - 5.9 / 3.9 - 5.3 cm LV Systolic Diameter PLAX 3.3 cm 2.1 - 4.0 cm LV Fractional Shortening PLAX 36.5 % 25 - 46 % LV Ejection Fraction 2D Teich 65.9 % IVS Diastolic Thickness 1.2 cm LVPW Diastolic Thickness 1.2 cm LV Relative Wall Thickness 0.5 RV Internal Dim ED PLAX 2.5 cm 1.9 - 3.8 cm LVOT Diameter 2.0 cm Aortic Root Diameter 2.7 cm LA Systolic Diameter LX 3.5 cm 3.0 - 4.0 / 2.7 - 3.8 cm LA Volume 32.0 cm 18 - 58 / 22 - 52 cm Ascending Aorta Diameter 2.9 cm DOPPLER AV Peak Velocity 150.0 cm/s AV Peak Gradient 9.0 mmHg AV Mean Velocity 111.0 cm/s AV Mean Gradient 6.0 mmHg AV Velocity Time Integral 34.8 cm LVOT Peak Velocity 119.0 cm/s LVOT Peak Gradient 5.7 mmHg LVOT Mean Velocity 86.4 cm/s LVOT Mean Gradient 3.0 mmHg LVOT Velocity Time Integral 25.1 cm LVOT Stroke Volume 78.9 cm AV Area Cont Eq vti 2.3 cm AV Area Cont Eq pk 2.5 cm MV Peak Velocity 85.8 cm/s MV Peak Gradient 2.9 mmHg MV Mean Velocity 54.8 cm/s MV Mean Gradient 1.0 mmHg Mitral E Point Velocity 81.4 cm/s Mitral A Point Velocity 83.9 cm/s Mitral E to A Ratio 1.0 MV PHT Velocity 88.2 cm/s MV Deceleration [place] 252.0 cm/s MV Pressure Half Time 105.0 ms MV Area PHT 2.1 cm MV Deceleration Time 301.0 ms TR Peak Velocity 112.0 cm/s TR Peak Gradient 5.0 mmHg Right Atrial Pressure 5.0 mmHg Pulmonary Artery Systolic Pressu 10.0 mmHg Right Ventricular Systolic Press 10.0 mmHg PV Peak Velocity 103.0 cm/s PV Peak Gradient 4.2 mmHg PV Mean Velocity 68.1 cm/s PV Mean Gradient 2.0 mmHg PV Velocity Time Integral 20.9 cm LV E' Lateral Velocity 9.6 cm/s Mitral E to LV E' Lateral Ratio 8.5 LV E' Septal Velocity 7.5 cm/s Mitral E to LV E' Septal Ratio 10.8
--- NOTE | 2017-02-22 09:05 | PN- Cardiology ---
Subjective Subjective: The patient continues to have persistent mild discomfort in her chest which has been present for days. No shortness of breath. No palpitations. No lightheadedness or dizziness. No nausea or vomiting Objective Vital Signs and I&Os Vital Signs Date Time Temp Pulse Resp B/P Pulse O2 O2 Flow FiO2 Ox Delivery Rate 02/22 08 97.1 62 20 122/72 97 Room Air 02/22 0017 98.2 64 20 104/64 95 Room Air 02/21 2154 59 02/21 2154 59 02/21 2000 98 Room Air Room Air 02/21 1654 97.6 67 20 110/60 95 Room Air 02/21 1249 94 Room Air Room Air 02/21 1006 72 118/62 02/21 1005 72 118/62 02/21 1005 72 118/62 Intake & Output 02/22 1600 02/22 0800 02/22 0000 02/21 1600 02/21 0800 02/21 0000 Intake Total 10 491 480 120 400 Output Total 350 550 Balance 10 491 480 -230 -150 Intake, IV 10 11 10 Intake, Oral 0 480 480 110 400 Output, Urine 350 550 Physical Exam: Gen: NAD HEENT: normal Lungs: clear to auscultation, normal resp. effort Heart: RRR, S1, S2, no murmurs Abdomen: Soft, nontender, no masses Extremities: No clubbing, cyanosis, or edema. Neuro: Alert and oriented x 3, cranial nerves intact Current Medications: Current Medications Sig/Juan Start time Last Medication Dose Route Stop Time Status Admin Acetaminophen 650 MG Q6P PRN 02/18 184 AC 02/20 PO 1039 Acetaminophen 1,000 MG Q6P PRN 02/18 1845 AC 02/18 IV 2139 Albuterol Sulfate 3 ML EVERY 4 HRS/AWAKE .. 02/19 2200 AC 02/19 INH 2158 Aspirin Buffered 81 MG DAILY 02/19 1000 AC 02/21 PO 1005 Atorvastatin Calcium 80 MG 1700 02/19 1700 AC 02/21 PO 1629 Enoxaparin Sodium 40 MG DAILY 02/18 1813 AC 02/21 SC 1006 Hydromorphone HCl 0.4 MG Q6P PRN 02/20 1130 AC 02/22 IV 0803 Isosorbide 30 MG QAM 02/18 190 AC 02/21 Mononitrate PO 1005 Lisinopril 5 MG DAILY 02/19 1000 AC 02/21 PO 1005 Metoclopramide HCl 10 MG ONCE ONE 02/21 1700 DC 04/ IV 02/21 1701 1811 Metoprolol Succinate 100 MG BID 02/18 2200 AC 02/21 PO 1006 Omeprazole 20 MG DAILY 02/19 1000 AC 02/21 PO 1005 Prazosin HCl 4 MG QPM 02/18 2200 AC 02/21 PO 2154 Sertraline HCl 200 MG DAILY 02/19 1000 AC 02/21 PO 1006 Topiramate 200 MG BID 02/18 2200 AC 04/ PO 2154 Zolpidem Tartrate 10 MG QPM 02/18 2200 AC 02/21 PO 2154 Results Last 48 Hrs of Labs/Mics: Laboratory Tests 02/22/17 0640: Anion Gap 9, Estimated GFR > 60, BUN/Creatinine Ratio 18.8 02/21/17 1346: Troponin I < 0.01, D-Dimer 384 H Recent Imaging Studies: Chest x-ray: No acute or active pulmonary process. The lungs appear clear. Echocardiogram 02/22/17: Normal size left ventricle. Left ventricular ejection fraction is estimated at >55 %. Mild concentric left ventricular hypertrophy. Mild mitral regurgitation. Trace tricuspid regurgitation. Assessment/Plan Assessment/Plan Assessment: 1. History of CAD, status post single vessel CABG 2. Cardiac catheterization in general 2016 showed no obstructive disease, however WOO graft to LAD was atretic 3. Chest pain, mostly atypical. Need to rule out acute coronary syndrome given history of known CAD 4. Normal left ventricular function on echocardiogram Plan: * Continue current medications. * Hold today's dose of metoprolol until after stress test. * Exercise nuclear stress test today. * Discharged to home in the afternoon if no significant ischemia is seen on the stress test. * Follow up in the office in one week. Continue telemetry? Yes
[2017-02-22 15:00] VITALS: BP 96/70
--- NOTE | 2017-02-22 18:49 | Patient Discharge Instructions ---
Discharge Instructions General Discharge Information You were seen/treated for: chest pain under evaluation Special Instructions: please follow up with Dr Goff with in a week of discharge Please follow up with regarding starting Isoniazid for postive PPD. Please follow up with your psychiatrist in a week Diet Continue normal diet: No Recommended Diet: Heart Healthy Activity Full Activity/No Limits: No (as tolerated) Acute Coronary Syndrome Inclusion Criteria At DC or during hospital stay patient has or had the following: ACS DIAGNOSIS No Discharge Core Measures Meds if any: Prescribed or Continued at Discharge Meds if any: NOT Prescribed or Continued at Discharge Congestive Heart Failure Inclusion Criteria At DC or during hospital stay patient has or had the following: CHF DIAGNOSIS No Discharge Core Measures Meds if any: Prescribed or Continued at Discharge Meds if any: NOT Prescribed or Continued at Discharge Cerebrovascular accident Inclusion Criteria At DC or during hospital stay patient has or had the following: CVA/TIA Diagnosis No Discharge Core Measures Meds if any: Prescribed or Continued at Discharge Meds if any: NOT Prescribed or Continued at Discharge Venous thromboembolism Inclusion Criteria VTE Diagnosis No VTE Type NONE VTE Confirmed by (Test) NONE Discharge Core Measures - Per Current guidelines, there needs to be overlap - treatment for the first 5 days of Warfarin therapy. - If discharged on Warfarin prior to 5 days of - overlap therapy, the patient will need to be - assessed for post discharge needs including - *Post discharge parental anticoagulation - *Warfarin and/or parental anticoagulation education - *Follow up date to check INR post discharge At least 5 days overlap therapy as Inpatient No Meds if any: Prescribed or Continued at Discharge Warfarin No Note: Overlap Therapy is Warfarin and Anticoagulant Meds if any: NOT Prescribed or Continued at Discharge
--- NOTE | 2017-02-22 20:40 | NUCLEAR MEDICINE REPORT ---
EXAMINATION: NM MYOCARDIAL PERFUSION CLINICAL INFORMATION: Hypertension . COMPARISON: Previous report dated 11/11/2015 TECHNIQUE: 29 mCi technetium Myoview for stress imaging, 40.4 mCi technetium Myoview for rest imaging. Gated studies. SPECT imaging in the coronal, axial and sagittal planes. Wall motion also obtained. FINDINGS: This examination demonstrates a moderate size, marked intensity defect of the distal anteroapex. No other defect is seen. The rest imaging is demonstrating this defect to be fixed. This defect may be slightly larger than the previous study of 2014 The wall motion demonstrates akinesis and possibly mild dyskinesis of the distal anteroapex. The calculated left ventricular ejection fraction is 45%. IMPRESSION: Moderate size fixed distal anteroapical defect. No scintigraphic evidence of stress-induced myocardial ischemia calculated left ventricular ejection fraction of 45%.
[2017-02-22 23:31] VITALS: BP 10/66
[2017-02-22 23:43] VITALS: BP 100/66
--- NOTE | 2017-02-23 07:28 | PN- Housestaff ---
Subjective Follow-up For: Atypical chest pain Tele-Events Since Last Visit: Sinus Rhythm 67-69, No overnight events Subjective: I saw and examined the patient today morning She is doing much better today. No overnight events. Denies any chest pain, shortness of breath, dizziness. Able to walk around. Review of Systems Constitutional: Reports: see HPI. Comments: ROS negative except the above. Objective Last 24 Hrs of Vital Signs/I&O Vital Signs Date Time Temp Pulse Resp B/P Pulse O2 O2 Flow FiO2 Ox Delivery Rate 02/22 2343 97.0 75 12 100/66 96 Room Air 02/22 2331 97.0 75 12 96 Room Air 02/22 2131 78 02/22 1500 98.4 68 8 96/70 96 Room Air 02/22 1248 62 122/72 02/22 1247 62 122/72 02/22 0827 97.1 62 20 122/72 97 Room Air Intake & Output 02/23 0800 02/23 0000 02/22 1600 Intake Total 130 490 240 Output Total 400 Balance 130 490 -160 Intake, IV 10 10 Intake, Oral 120 480 240 Number 1 Bowel Movements Output, Urine 400 Physical Exam General Appearance: Alert, Oriented X3, Cooperative Skin: No Rashes, No Breakdown HEENT: Atraumatic, PERRLA, EOMI Neck: Supple Cardiovascular: Regular Rate, Normal S1, Normal S2, No Murmurs Lungs: Clear to Auscultation, Normal Air Movement Abdomen: Normal Bowel Sounds, Soft, No Tenderness Neurological: Strength at 5/5 X4 Ext, Normal Tone, Sensation Intact Extremities: No Clubbing, No Cyanosis, No Edema Current Medications: Current Medications Sig/Juan Start time Last Medication Dose Route Stop Time Status Admin Acetaminophen 650 MG .STK-MED ONE 02/22 1446 DC PO 02/22 1447 Acetaminophen 650 MG Q6P PRN 02/18 1845 AC 02/22 PO 1449 Acetaminophen 1,000 MG Q6P PRN 02/18 1845 AC 02/18 IV 2139 Albuterol Sulfate 3 ML EVERY 4 HRS/AWAKE .. 02/19 2200 AC 02/19 INH 2158 Aspirin Buffered 81 MG DAILY 02/19 1000 AC 02/22 PO 1247 Atorvastatin Calcium 80 MG 1700 02/19 1700 AC 02/22 PO 1636 Enoxaparin Sodium 40 MG DAILY 02/18 1813 AC 02/22 SC 1250 Hydromorphone HCl 0.4 MG Q6P PRN 02/20 1130 AC 02/22 IV 0803 Isosorbide 30 MG QAM 02/18 1902 AC 02/22 Mononitrate PO 1247 Lisinopril 5 MG DAILY 02/19 1000 AC 02/22 PO 1248 Metoprolol Succinate 100 MG BID 02/18 2200 DC 02/21 PO 1006 Omeprazole 20 MG DAILY 02/19 1000 AC 02/22 PO 1247 Oxycodone HCl 10 MG Q12 02/22 1000 AC 02/22 PO 2132 Prazosin HCl 4 MG QPM 02/18 2200 AC 02/22 PO 2131 Sertraline HCl 200 MG DAILY 02/19 1000 AC 02/22 PO 1248 Topiramate 200 MG BID 02/18 2200 AC 02/22 PO 2131 Zolpidem Tartrate 10 MG QPM 02/18 2200 AC 02/22 PO 2131 Last 24 Hrs of Lab/[place] Results Last 24 Hrs of Labs/Mics: Laboratory Tests 02/23/17 0610: Sodium Pending, Potassium Pending, Chloride Pending, Carbon Dioxide Pending, Anion Gap Pending, BUN Pending, Creatinine Pending, BUN/Creatinine Ratio Pending Lines/Diet/Fluids Lines: peripheral lines Assessment/Plan Assessment: 46-year-old woman with past history of coronary artery disease status post CABG in 2000 here with chest pain. 1. Chest pain of unclear etiology: Troponins negative so far, EKG without changes. Continued telemetry monitoring per cardiology. Pharmacological stress test reports fixed defect with LVEF - 45%. Stable for discharge today. 2. Hypertension: Well controlled on current meds. Continue. 3. Hyperlipidemia: Continue statin. 4. Continue medications for migraines and mental health. 5. Will change morphine to Dilaudid, according to conversion. Continue DVT prophylaxis. Problem List: 1. CAD (coronary artery disease) 2. Atypical migraine 3. Atypical chest pain Pain Ratin Pain Location: chest pain Pain Goal: Pain 4 or less Pain Plan: tylenol oxycodone dilaudid Tomorrow's Labs & Rationales: none
[2017-02-23 08:00] VITALS: BP 110/60
[2017-02-23 09:18] VITALS: BP 110/60
--- NOTE | 2017-02-23 10:37 | PN- Cardiology ---
Subjective Subjective: The patient reports that she is feeling well. No further chest pain. No shortness of breath. No palpitations. No diaphoresis. She notes that she was diagnosed with a positive PPD prior to admission, and she has been evaluated by her primary care physician for this. Objective Vital Signs and I&Os Vital Signs Date Time Temp Pulse Resp B/P Pulse O2 O2 Flow FiO2 Ox Delivery Rate 02/23 0918 73 110/60 02/23 0918 73 110/60 02/23 0800 97.3 73 18 110/60 96 Room Air 04/ 2343 97.0 75 12 100/66 96 Room Air / 2331 97.0 75 12 10/66 96 Room Air / 2131 78 02/22 1500 98.4 68 8 96/70 96 Room Air 02/22 1248 62 122/72 02/22 1247 62 122/72 Intake & Output 02/23 1600 02/23 0800 / 0000 / 1600 02/22 0800 02/22 0000 Intake Total 130 490 240 10 491 Output Total 400 Balance 130 490 -160 10 491 Intake, IV 10 10 10 11 Intake, Oral 120 480 240 0 480 Number 1 Bowel Movements Output, Urine 400 Physical Exam: Gen: NAD HEENT: normal Lungs: clear to auscultation, normal resp. effort Heart: RRR, S1, S2, no murmurs Abdomen: Soft, nontender, no masses Extremities: No clubbing, cyanosis, or edema. Neuro: Alert and oriented x 3, cranial nerves intact Current Medications: Current Medications Sig/Juan Start time Last Medication Dose Route Stop Time Status Admin Acetaminophen 650 MG .STK-MED ONE 02/22 1446 DC PO 02/22 1447 Acetaminophen 650 MG Q6P PRN 02/18 1845 AC 02/22 PO 1449 Acetaminophen 1,000 MG Q6P PRN 02/18 1845 AC 02/18 IV 2139 Albuterol Sulfate 3 ML EVERY 4 HRS/AWAKE .. 02/19 2200 AC 02/19 INH 2158 Aspirin Buffered 81 MG DAILY 02/19 1000 AC 02/23 PO 0918 Atorvastatin Calcium 80 MG 1700 02/19 1700 AC 02/22 PO 1636 Enoxaparin Sodium 40 MG DAILY 02/18 1813 AC 02/23 SC 0919 Hydromorphone HCl 0.4 MG Q6P PRN 02/20 1130 AC 02/22 IV 0803 Isosorbide 30 MG QAM 02/18 1902 AC 02/23 Mononitrate PO 0918 Lisinopril 5 MG DAILY 02/19 1000 AC 02/23 PO 0918 Omeprazole 20 MG DAILY 02/19 1000 AC 02/23 PO 0918 Oxycodone HCl 10 MG Q12 02/22 1000 AC 02/23 PO 0924 Prazosin HCl 4 MG QPM 02/18 2200 AC 02/22 PO 2131 Sertraline HCl 200 MG DAILY 02/19 1000 AC 02/23 PO 0918 Topiramate 200 MG BID 02/18 2200 AC 02/23 PO 0918 Zolpidem Tartrate 10 MG QPM 02/18 2200 AC 02/22 PO 2131 Results Last 48 Hrs of Labs/Mics: Laboratory Tests 02/23/17 0610: Anion Gap 12, Estimated GFR > 60, BUN/Creatinine Ratio 20.0 02/22/17 0640: Anion Gap 9, Estimated GFR > 60, BUN/Creatinine Ratio 18.8 02/21/17 1346: Troponin I < 0.01, D-Dimer 384 H Recent Imaging Studies: Nuclear stress test: Moderate size fixed distal anteroapical defect. No scintigraphic evidence of stress-induced myocardial ischemia calculated left ventricular ejection fraction of 45%. Assessment/Plan Assessment/Plan Assessment: 1. History of CAD, status post single vessel CABG 2. Cardiac catheterization in 2016 showed no obstructive disease, however WOO graft to LAD was atretic 3. Chest pain, mostly atypical. Need to rule out acute coronary syndrome given history of known CAD 4. Normal left ventricular function on echocardiogram 5. No evidence of ischemia nuclear stress test Plan: * Continue current medications. * Discharge to home today * Call with further symptoms * Follow up in the office with me in 2 weeks. Continue telemetry? No
--- NOTE | 2017-02-23 13:36 | Discharge Summary ---
Visit Information Visit Dates Admission Date: 02/19/17 Discharge Date: 02/23/17 Hospital Course Course Attending Physician: OMARI SALAZAR MD Primary Care Physician: ARIEL LIMON MD Hospital Course: 46-year-old woman with past history of coronary artery disease status post CABG in 2000 here with chest pain. 1. Chest pain of unclear etiology: Troponins negative so far, EKG without changes. Continued telemetry monitoring per cardiology. Pharmacological stress test reports fixed anteroapical defect. LVEF - 45%. She received Dilaudid and oxycodone during hospitalizaton for her pain. For her chronic stable conditions - we continued her home medications. Allergies: Coded Allergies: No Known Allergies (08/06/16) Disposition Summary Disposition Principal Diagnosis: Chest Pain Additional Diagnosis: HTN, HLD, Complicated migranes Discharge Disposition: home or self care Discharge Instructions General Discharge Information Code Status: Full Code Patient's Diet: Heart healthy diet Patient's Activity: Activity as tolerated Follow-Up Instructions/Appts: Please follow up with in a week Please follow up with your PCP regarding positive PPD test and starting Isoniazid if warranted. Please follow up with your psychiatrist in a week Medications at Discharge Discharge Medications: Stop taking the following medications: Alprazolam (Xanax) 0.25 MG TABLET ORAL TWICE DAILY as needed for anxiety Aripiprazole (Abilify) 15 MG TABLET ORAL Every Morning Qty = 30 Ibuprofen (Advil) 200 MG CAPSULE ORAL DAILY as needed for SEVERE PAIN Days = 30 Propranolol HCl (Propranolol HCl) 20 MG TABLET ORAL THREE TIMES DAILY as needed for ANXIETY Qty = 90 Continue taking these medications: Aspirin (Ecotrin*) 81 MG TABLET. 1 Tablet ORAL DAILY Comments: Last Taken: 02/23/17 Time: 9 AM Multivitamin (Multiple Vitamins) 1 EACH TABLET 1 Tablet ORAL DAILY Instructions: NOT TAKEN IN HOSPITAL Zolpidem Tartrate (Ambien) 10 MG TABLET 1 Tablet ORAL Every night Comments: Last Taken: 02/22/17 Time: 9:30 PM Sertraline HCl (Zoloft) 100 MG TABLET 2 Tablet ORAL DAILY Comments: Last Taken: 02/23/17 Time: 9 AM Prazosin HCl (Prazosin HCl) 2 MG CAPSULE 2 Capsule ORAL Every night Qty = 30 Comments: Last Taken: 02/22/17 Time: 9:30 PM Rosuvastatin Calcium (Crestor) 40 MG TABLET 1 Tablet ORAL DAILY Qty = 90 Comments: LIPITOR GIVEN IN HOSPITAL Last Taken: 02/22/17 Time: 4:30 PM Sumatriptan Succinate (Imitrex) 50 MG TABLET 1 Tablet ORAL As Directed Qty = 9 Instructions: take one tab at the onset of the headache Take a second tab 2 hrs After if migraine persists and call PCP/neurologist Comments: NOT TAKEN IN HOSPITAL Lisinopril (Lisinopril) 5 MG TABLET 1 Tablet ORAL DAILY Qty = 30 Comments: Last Taken: 02/23/17 Time: 9 AM Nitroglycerin (Nitrostat) 0.4 MG TAB.SUBL 1 Tablet SUBLINGUAL As Directed as needed for CHEST PAIN Qty = 50 Instructions: 1st sign of attack; may repeat every 5 minutes until relief; if pain persists after 3 tablets in 15 minutes, prompt medical att Comments: NOT GIVEN IN HOSPITAL Metoprolol Succ XL (Toprol XL) 100 MG TAB.ER.24H 1 Tablet ORAL TWICE DAILY Days = 30 Comments: Last Taken: 02/21/17 Time: 10 AM Omeprazole (Omeprazole) 20 MG CAPSULE.DR 1 Capsule ORAL See Instructions Qty = 30 Instructions: Take one tablet prior to taking the ibuprofen tablet. Comments: Last Taken: 02/23/17 Time: 9 AM Topiramate (Topiramate) 200 MG TABLET 1 Tablet ORAL TWICE DAILY Qty = 90 Comments: Last Taken: 02/23/17 Time: 9 AM Isosorbide Mononitrate (Isosorbide Mononitrate ER) 30 MG TAB.ER.24H 1 Tablet ORAL Every Morning Qty = 90 Comments: Last Taken: 02/23/17 Time: 9 AM Copies To: ASHLY LIVE,ARIEL Marley; OMARI SALAZAR MD Attending Review Statement Documenting Attending: OMARI SALAZAR MD
== END 2017-02-23 11:05 | DRG 198 ==
LOC: ENRESERVTM → ENRESERVDT → ERH 11:44 → 1NO 16:09 → ERHI 16:09 → 1NO 18:23 → ENPENDDIS 02-19 15:22 → 1NO 02-19 16:30
PROVIDERS: Emergency Medicine; Internal Medicine Cardiovascular Disease; ADMIT Internal Medicine Cardiovascular Disease
DX: R07.9 Chest pain, unspecified (principal); G43.109 Migraine with aura, not intractable, without status migrainosus; I10 Essential (primary) hypertension; E78.5 Hyperlipidemia, unspecified; F43.10 Post-traumatic stress disorder, unspecified; F41.8 Other specified anxiety disorders; J45.909 Unspecified asthma, uncomplicated; I25.10 Atherosclerotic heart disease of native coronary artery without angina pectoris; Z95.1 Presence of aortocoronary bypass graft; F32.9 Major depressive disorder, single episode, unspecified
CPT/HCPCS: 1NSP; 78452; 82436; 93005; 93010; 93016; 93017; 93306; 96374; A9502; J0131; J1650; J1885; J2765; J7508

== ENCOUNTER 2018-01-12 13:22 | Emergency (ER) | payer OTHER ==
[~2018-01-12] VITALS: Ht 162.6 cm; Wt 111.6 kg
[~2018-01-12 13:22] MED LIST changes: +ALPRAZOLAM0.5 M4 PO; +CHANTIX1 MG PO; +IBUPROFEN800 M1 PO; +METOPROLOL SUC100 M2 PO; +MONTELUKAST SOD10 M1 PO; +PREDNISONE20 M1 PO; +PROAIR HFA8.5 GM INH; +REXULTI1 MG PO; +REXULTI2 M1 PO; +SYMBICORT 80-10.2 GM INH; +TAMIFLU75 M1 PO; +TOPIRAMATE200 M2 PO; +VALIUM2 M1 PO
[2018-01-12 14:00] LABS: ABSOLUTE BASOPHIL COUNT 0.1 /CUMM (0.0-0.2); ABSOLUTE EOSINOPHIL COUNT 0.4 /CUMM (0.0-0.7); ABSOLUTE GRANULOCYTE CT 3.8 /CUMM (1.4-6.5); ABSOLUTE LYMPH COUNT 1.4 /CUMM (1.2-3.4); ABSOLUTE MONOCYTE COUNT 0.5 /CUMM (0.10-0.60); BASOPHIL % 0.9 % (0.0-2.0); EOSINOPHIL % 6.8 % (0-5); GRANULOCYTE % 61.9 % (42.2-75.2); HEMATOCRIT 41.5 % (37-47); MEAN CORPUSCULAR HGB 28.5 PG (27.0-31.0); MEAN CORPUSCULAR HGB CONC 32.2 G/DL (33.0-37.0); MEAN CORPUSCULAR VOLUME 88.5 FL (81.0-99.0); MEAN PLATELET VOLUME 7.1 FL (7.4-10.4); PLATELET COUNT 312 /CUMM (130-400); RBC DISTRIBUTION WIDTH 13.7 % (11.5-14.5); WHITE BLOOD CELL COUNT 6.1 /CUMM (4.8-10.8)
--- NOTE | 2018-01-12 14:45 | ED CARDIAC/CP/PALPITATIONS ---
History of Present Illness General Chief Complaint: Chest Pain Stated Complaint: CHEST PAIN Source: patient Exam Limitations: no limitations Vital Signs & Intake/Output Vital Signs & Intake/Output Vital Signs Date Time Temp Pulse Resp B/P B/P Pulse O2 O2 Flow FiO2 Mean Ox Delivery Rate 01/12 1614 98.4 88 18 124/67 97 Room Air 01/12 1335 98.7 77 16 121/83 99 Room Air Allergies Coded Allergies: No Known Allergies (08/06/16) Reconcile Medications Albuterol Sulfate (Proair Hfa) 90 MCG HFA.AER.AD 2 PUF INH Q4H PRN RESP. ( Reported) Alprazolam 0.5 MG TABLET 1 TAB PO BIDP PRN ANXIETY (Reported) Aspirin (Ecotrin*) 81 MG TABLET.DR 1 TAB PO DAILY HEART/BLOOD (Reported) Brexpiprazole (Rexulti) 2 MG TABLET 1 TAB PO QHS MENTAL HEALTH (Reported) Budesonide/Formoterol Fumarate (Symbicort 80-4.5 Mcg Inhaler) 80 MCG-4.5 MCG/ ACTUATION HFA.AER.AD 2 PUF INH BID RESP. (Reported) Diazepam (Valium) 2 MG TABLET 1 TAB PO BID PRN SPASM Gabapentin (Neurontin) 300 MG CAPSULE 1 CAP PO TID ANXIETY (Reported) Isosorbide Mononitrate (Isosorbide Mononitrate ER) 30 MG TAB.ER.24H 1 TAB PO QAM HEART (Reported) Lisinopril 5 MG TABLET 1 TAB PO DAILY Hypertension/CHF Metformin HCl 1,000 MG TABLET 1 TAB PO BID DIABETES (Reported) Metoprolol Succinate 100 MG TAB.ER.24H 1 TAB PO DAILY HEART/BP (Reported) Multivitamin (Multiple Vitamins) 1 EACH TABLET 1 TAB PO DAILY SUPPLEMENT ( Reported) NOT TAKEN IN HOSPITAL Nitroglycerin (Nitrostat) 0.4 MG TAB.SUBL 1 TAB SL AD PRN CHEST PAIN chest pain - may repeat x 3 times every 5 minutes, call Prazosin HCl 2 MG CAPSULE 2 CAP PO QPM SLEEP (Reported) Propranolol HCl 20 MG TABLET 1 TAB PO BID PRN ANXIETY (Reported) Rosuvastatin Calcium (Crestor) 40 MG TABLET 1 TAB PO DAILY CHOLESTEROL ( Reported) Sertraline HCl (Zoloft) 100 MG TABLET 2 TAB PO DAILY DEPRESSION (Reported) Trazodone HCl 50 MG TABLET 2 TAB PO QPM PRN SLEEP (Reported) Varenicline Tartrate (Chantix) 1 MG TABLET 1 TAB PO BID SMOKING CESSATION ( Reported) Zolpidem Tartrate (Ambien) 10 MG TABLET 1 TAB PO QPM SLEEP (Reported) Triage Note: PT TO ED FOR INTERMITTENT STABBING CHEST PAIN THAT BEGAN TODAY, REPORTING ASSOCIATED SOB AND DIZZINESS. Triage Nurses Notes Reviewed? yes Onset: Gradual Duration: day(s): (1), waxing and waning Timing: remote history Quality/Severity: severe Location: central Radiation: substernal Activities at Onset: none Prior Chest Pain/Card Workup: echocardiography, stress test Modifying Factors: Worsens With: breathing. Nitro Today/Relief: no nitro taken today Aspirin Today: 81 mg x 1 : No Patient currently breastfeeds: No HPI: Patient is a 47-year-old female with history of hypertension, diabetes, hyper lipidemia, cardiac bypass presenting to the emergency department chief complaining of intermittent centralized chest pain that started around 7:30 AM this morning. Symptoms last approximately 10 minutes and then resolve on their own. When pain comes as sharp and stabbing. Denies taking anything specifically for the pain prior to arrival. Patient does report that the pain is significant that it takes her breath away. Denies any associated nausea or vomiting. No fevers or chills. Denies recent coughing or congestion. Her most recent cardiology appointment for checkup 6 months ago and everything was fine. She had an echocardiogram done which was within normal range and a stress test within the past one year which was normal. Denies any trauma or recent heavy lifting. 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 Denies any recent long trips. No recent surgery. Denies history of blood clots. No history of unilateral leg swelling. Denies hormone supplements. (Basia Hirsch) Past History Travel History Traveled to [place] past 21 day No Medical History Any Pertinent Medical History? 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 FATHER FH: CAD (coronary artery disease) FH: CHF (congestive heart failure) FH: diabetes mellitus FH: myocardial infarction Relation not specified for: FH: myocardial infarction Hx Contributory? No (Basia Hirsch) Review of Systems Review of Systems Constitutional: Reports: no symptoms. Comments Review of systems: See HPI, All other systems negative. Constitutional, no chills fever or weight loss HEENT: No visual changes no sore throat no congestion Cardiovascular: No palpitation , orthopnea or ankle swelling Skin, no jaundice no rashes Respiratory: No cough sputum or hemoptysis GI: No nausea no vomiting : No dysuria No hematuria Muscle skeletal: no back pain, no neck pain, Neurologic: No numbness no confusion Psych: No stress anxiety or depression,. Heme/endocrine: No bruising no bleeding no polyuria or polydipsia Immunology: No splenectomy or history of AIDS (Basia Hirsch) Physical Exam Physical Exam General Appearance: no apparent distress, alert, awake, comfortable, obese Cardiovascular: regular rate/rhythm Comments: Well-developed well-nourished person in no acute distress HEENT: Pupils equally round and reactive to light and accommodation. Nose is atraumatic. External auditory canal and Tympanic membranes clear. Pharynx normal. No swelling or edema. Neck: Normal inspection Back: Nontender Cardiovascular: Regular rate and rhythms no murmurs rubs or gallops, normal JVP Respiratory: Chest nontender to palpation. No respiratory distress.breath sounds clear to auscultation bilaterally Abdomen: Soft, nontender nondistended, no appreciable organomegaly. Normal bowel sounds. No ascites ,obese, no rebound or guarding. Extremity: No edema, no calf tenderness to palpation, normal and equal pulses. Neuro: Alert oriented x3 Skin: No appreciable rash on exposed skin, skin is warm and dry. Psych: Mood and affect is normal, memory and judgment is normal. Core Measures ACS in differential dx? Yes CVA/TIA Diagnosis No Sepsis Present: No Sepsis Focused Exam Completed? No (Basia Hirsch) Progress Differential Diagnosis: AMI, cholecystitis, CHF/pulm edema, hypovolemia, hyperventilation, musculoskeletal pain, myocarditis, pancreatitis, pneumonia, pulmonary embolism, PVCs/PACs Plan of Care: Orders Procedure Date/time Status Heart Healthy Diet 01/12 D Active TROPONIN LEVEL 01/12 1745 Complete EKG 01/12 1745 Active Add-on Test (ER Only) 01/12 1603 Active Telemetry/Supervisor Word Processing 01/12 1502 Active LIPASE 01/12 1345 Complete AMYLASE 01/12 1345 Complete TROPONIN LEVEL 01/12 1337 Complete COMPREHENSIVE METABOLIC PANEL 01/12 1337 Complete CBC WITHOUT DIFFERENTIAL 01/12 1337 Complete EKG 01/12 1327 Active Laboratory Tests 01/12/18 1705: Troponin I < 0.01 01/12/18 1345: Anion Gap 14, Estimated GFR > 60, BUN/Creatinine Ratio 15.7, Glucose 125 H, Calcium 9.9, Total Bilirubin 0.2, AST 18, ALT 22, Alkaline Phosphatase 63, Troponin I < 0.01, Total Protein 6.8, Albumin 4.0, Globulin 2.8, Albumin/ Globulin Ratio 1.4, Amylase 64, Lipase 129, CBC w Diff NO MAN DIFF REQ, RBC 4.70 , MCV 88.5, MCH 28.5, MCHC 32.2 L, RDW 13.7, MPV 7.1 L, Gran % 61.9, Lymphocytes % 22.5, Monocytes % 7.9, Eosinophils % 6.8 H, Basophils % 0.9, Absolute Granulocytes 3.8, Absolute Lymphocytes 1.4, Absolute Monocytes 0.5, Absolute Eosinophils 0.4, Absolute Basophils 0.1 01/12/2018 4:11:54 PM first troponin EKG are unchanged from previous. Patient is perc negative. Dr. Goff, patient's soda dry house operator, recommending we get patient's pain under control, if pain cannot be controlled patient will be admitted for observation rule out ACS. Second troponin scheduled for 545. 01/12/2018 7:13:[address] and spoke with Dr[address] Goff number patient is pain-free at this time and second troponin and EKG are unchanged. Dr. Goff agrees patient to be discharged home and follow-up this week outpatient. Patient educated on signs and symptoms return. PERC NEGATIVE. Diagnostic Imaging: Viewed by Me: Radiology Read. Discussed w/RAD: Radiology Read. CXR Impression: no acute abnormality, no infiltrates, normal size heart, normal mediastinum Initial ED EKG: sinus rhythm at 86 bpm nonspecific T abnormalities in anterior lateral leads (Basia Hirsch) Departure Departure Time of Disposition: 1908 Disposition: HOME OR SELF CARE Condition: Stable Clinical Impression Primary Impression: Chest pain Qualifiers: Chest pain type: unspecified Qualified Code: R07.9 - Chest pain, unspecified Referrals: Esther LIVE,Jez Marley (PCP/Family) Additional Instructions: Follow-up with Dr. Goff this week, call tomorrow to make an appointment. Continue all medications asprescribed. Return if he develop any chest pain worsening symptoms or concerns. Departure Forms: Customer Survey General Discharge Information (Basia Hirsch) PA/SHRINKING MACHINE OPERATOR Co-Sign Statement Statement: ED Attending supervision documentation- [] I saw and evaluated the patient. I have also reviewed all the pertinent lab results and diagnostic results. I agree with the findings and the plan of care as documented in the PA's/SHRINKING MACHINE OPERATOR's documentation. [X] I have reviewed the ED Record and agree with the PA's/SHRINKING MACHINE OPERATOR's documentation. [] Additions or exceptions (if any) to the PAs/SHRINKING MACHINE OPERATOR's note and plan are summarized below: [] (Becca LIVE,Tye Michelle) Critical Care Note Critical Care Note Critical Care Time: non-applicable (Basia Hirsch)
[2018-01-12] MEDS ORDERED: METFORMIN HCL1000 M1 PO (14:48)
[2018-01-12] MEDS ORDERED: TRAZODONE HCL50 M1 PO (14:49)
[2018-01-12] MEDS ORDERED: NEURONTIN300 M1 PO (14:49)
--- NOTE | 2018-01-12 16:06 | RADIOLOGY REPORT ---
EXAMINATION: XR CHEST CLINICAL INFORMATION: Evaluate for cardiomegaly. Chest pain. COMPARISON: CT angiogram of the chest 10/15/2017. TECHNIQUE: 2 views of the chest were obtained. FINDINGS: Lungs are clear and well expanded. There is no focal consolidative disease, pleural effusion, or pneumothorax. The cardiac silhouette and upper mediastinal contours are normal. No acute osseous finding. Chronic changes of a median sternotomy are noted. IMPRESSION: Unremarkable examination. No overt consolidative disease or effusion.
[2018-01-12 19:45] VITALS: BP 119/57
== END 2018-01-12 19:44 ==
LOC: ERH 13:22
PROVIDERS: Emergency Medicine
DX: R07.89 Other chest pain (principal)
CPT/HCPCS: 71046; 93005; 93010; 96374; 96375; 96376; J1200; J3490

== ENCOUNTER 2018-01-19 18:44 | Observation (INO) | payer OTHER ==
[~2018-01-19] VITALS: Ht 162.6 cm; Wt 90.7 kg
[~2018-01-19 18:44] MED LIST changes: +METFORMIN HCL1000 M1 PO; +NEURONTIN300 M1 PO; +TRAZODONE HCL50 M1 PO
--- NOTE | 2018-01-19 19:28 | RADIOLOGY REPORT ---
EXAMINATION: CHEST 2 VIEWS CLINICAL INFORMATION: Chest pain. COMPARISON: 01/12/2018. TECHNIQUE: PA and lateral views of the chest were obtained. FINDINGS: The cardiac silhouette is not enlarged. Intact midline sternal wires are present. The mediastinal and hilar contours are unremarkable. There are neither pleural effusions nor pneumothoraces. There are no consolidations. The osseous structures are unremarkable. IMPRESSION: No evidence for acute disease.
[2018-01-19 19:37] LABS: ABSOLUTE BASOPHIL COUNT 0 /CUMM (0.0-0.2); ABSOLUTE EOSINOPHIL COUNT 0.4 /CUMM (0.0-0.7); ABSOLUTE GRANULOCYTE CT 4.9 /CUMM (1.4-6.5); ABSOLUTE LYMPH COUNT 1.9 /CUMM (1.2-3.4); ABSOLUTE MONOCYTE COUNT 0.5 /CUMM (0.10-0.60); BASOPHIL % 0.5 % (0.0-2.0); EOSINOPHIL % 5.5 % (0-5); GRANULOCYTE % 63.1 % (42.2-75.2); HEMATOCRIT 39.5 % (37-47); MEAN CORPUSCULAR HGB 28.6 PG (27.0-31.0); MEAN CORPUSCULAR HGB CONC 32.4 G/DL (33.0-37.0); MEAN CORPUSCULAR VOLUME 88.4 FL (81.0-99.0); MEAN PLATELET VOLUME 7.2 FL (7.4-10.4); PLATELET COUNT 276 /CUMM (130-400); RBC DISTRIBUTION WIDTH 13.5 % (11.5-14.5); RED BLOOD CELL CT 4.46 /CUMM (4.20-5.40); WHITE BLOOD CELL COUNT 7.7 /CUMM (4.8-10.8)
--- NOTE | 2018-01-19 21:37 | ED CARDIAC/CP/PALPITATIONS ---
History of Present Illness General Chief Complaint: Chest Pain Stated Complaint: SIB MARIE FOR CP Source: patient, old records Exam Limitations: no limitations Vital Signs & Intake/Output Vital Signs & Intake/Output Vital Signs Date Time Temp Pulse Resp B/P B/P Pulse O2 O2 Flow FiO2 Mean Ox Delivery Rate 01/20 0002 83 20 128/76 96 Room Air 01/19 2349 80 115/63 01/19 2300 98.2 80 20 119/84 97 Room Air 01/19 1906 97.5 89 18 129/79 97 Room Air ED Intake and Output 01/20 0000 01/19 1200 Intake Total 200 Output Total Balance 200 Intake, Oral 200 Patient 200 lb Weight Weight Estimated Measurement Method Allergies Coded Allergies: No Known Allergies (08/06/16) Reconcile Medications Albuterol Sulfate (Proair Hfa) 90 MCG HFA.AER.AD 2 PUF INH Q4H PRN RESP. ( Reported) Alprazolam 0.5 MG TABLET 1 TAB PO BIDP PRN ANXIETY (Reported) Aspirin (Ecotrin*) 81 MG TABLET.DR 1 TAB PO DAILY HEART/BLOOD (Reported) Brexpiprazole (Rexulti) 2 MG TABLET 1 TAB PO QHS MENTAL HEALTH (Reported) Budesonide/Formoterol Fumarate (Symbicort 80-4.5 Mcg Inhaler) 80 MCG-4.5 MCG/ ACTUATION HFA.AER.AD 2 PUF INH BID RESP. (Reported) Diazepam (Valium) 2 MG TABLET 1 TAB PO BID PRN SPASM Gabapentin (Neurontin) 300 MG CAPSULE 1 CAP PO TID ANXIETY (Reported) Isosorbide Mononitrate (Isosorbide Mononitrate ER) 30 MG TAB.ER.24H 1 TAB PO QAM HEART (Reported) Lisinopril 5 MG TABLET 1 TAB PO DAILY Hypertension/CHF Metformin HCl 1,000 MG TABLET 1 TAB PO BID DIABETES (Reported) Metoprolol Succinate 100 MG TAB.ER.24H 1 TAB PO DAILY HEART/BP (Reported) Multivitamin (Multiple Vitamins) 1 EACH TABLET 1 TAB PO DAILY SUPPLEMENT ( Reported) NOT TAKEN IN HOSPITAL Nitroglycerin (Nitrostat) 0.4 MG TAB.SUBL 1 TAB SL AD PRN CHEST PAIN chest pain - may repeat x 3 times every 5 minutes, call Prazosin HCl 2 MG CAPSULE 2 CAP PO QPM SLEEP (Reported) Propranolol HCl 20 MG TABLET 1 TAB PO BID PRN ANXIETY (Reported) Rosuvastatin Calcium (Crestor) 40 MG TABLET 1 TAB PO DAILY CHOLESTEROL ( Reported) Sertraline HCl (Zoloft) 100 MG TABLET 2 TAB PO DAILY DEPRESSION (Reported) Trazodone HCl 50 MG TABLET 2 TAB PO QPM PRN SLEEP (Reported) Varenicline Tartrate (Chantix) 1 MG TABLET 1 TAB PO BID SMOKING CESSATION ( Reported) Zolpidem Tartrate (Ambien) 10 MG TABLET 1 TAB PO QPM SLEEP (Reported) Triage Note: PT TO TRIAGE C/O CP WORSE WITH DEEP INSPIRATION THAT BEGAN TODAY. PT STATES SHE SPOKE WITH WHO TOLD HER TO COME IN. DENIES SOB/DIAPHORESIS. DENIES N/V. STATES TOOK 4 NITROS IN PAST HOUR. HX [place] 17 YEARS AGO. WAS SEEN HERE LAST WEEK FOR SAME AND D.C HOME PER PT. Triage Nurses Notes Reviewed? yes Onset: Abrupt Duration: day(s): Timing: recent history Location: central Radiation: jaw, back : No Patient currently breastfeeds: No HPI: Pt is a 47 yo obese WF with a PMH significant for [place] x 2 s/p CABG, HTN, HLD, asthma, prediabetes who presents with a CC of centralized, sharp, tight chest pain radiating to her left jaw, tongue, left shoulder/arm, and to her mid-back. Pt states she is also persistently nauseous and diaphoretic. Pain is worse with deep inspiration and with exertion. Pain is slightly improved when leaning forward. She denies recent viral illnesses/URIs, denies recent travel, denies periods of immobility. Pt reports she has been under large amounts of stress recently due to multiple factors. Pt states she was seen approximately 1 week ago for the same symptoms but there was no evidence of an [place] on ekgs and labs. Pt returned to the ED today after taking a total of four nitroglycerin tablets which did provide brief improvement in her symptoms. After the fourth nitro tablet, she was advised to return to the ED by her cert occupational therapy asst. She has also taken ibuprofen and tylenol with no improvement in symptoms. Pt states her previous two MIs were accompanied by normal EKGs and lab results. She states that it was only after she coded during a stress test that she was brought to the laborer sawmill and a CABG was performed. She is concerned that another heart attack may be presenting in a similar fashion. She is also requesting pain medications and states only dilaudid and occasionally morphine improve her pain. (Kofi Mcgee) Past History Travel History Traveled to [place] past 21 day No Medical History Any Pertinent Medical History? 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 FATHER FH: CAD (coronary artery disease) FH: CHF (congestive heart failure) FH: diabetes mellitus FH: myocardial infarction Relation not specified for: FH: myocardial infarction Hx Contributory? No (Kofi Mcgee) Review of Systems Review of Systems Constitutional: Reports: diaphoresis, malaise. Denies: fever. EENTM: Reports: no symptoms. Respiratory: Denies: see HPI. Cardiovascular: Denies: see HPI. GI: Reports: no symptoms. Genitourinary: Reports: no symptoms. Musculoskeletal: Reports: no symptoms. Skin: Reports: no symptoms. Neurological/Psychological: Reports: no symptoms. Hematologic/Endocrine: Reports: no symptoms. Immunologic/Allergic: Reports: no symptoms. All Other Systems: Reviewed and Negative (Kofi Mcgee) Physical Exam Physical Exam General Appearance: alert, awake, mild distress, obese Head: atraumatic, normal appearance Eyes: Bilateral: normal appearance, EOMI. Ears, Nose, Throat: normal ENT inspection Neck: supple Respiratory: normal breath sounds, lungs clear Cardiovascular: regular rate/rhythm Peripheral Pulses: 2+ dorsalis pedis (R), 2+ dorsalis pedis (L) Gastrointestinal: soft, non-tender Back: normal inspection Extremities: no edema Neurologic/Psych: awake, alert, oriented x 3 Skin: diaphoresis Core Measures ACS in differential dx? Yes CVA/TIA Diagnosis No Sepsis Present: No Sepsis Focused Exam Completed? No (Alfredo FELICIANO,Kofi) Progress Differential Diagnosis: AMI, aortic dissection, musculoskeletal pain, pericarditis, unstable angina Plan of Care: Orders Procedure Date/time Status Regular Diet 01/20 B Active OXYGEN SETUP (GEN) 01/19 2315 Active Saline Lock 01/[address] in observation 01/19 2315 Active Vital Signs 01/19 2315 Active Activity/Ambulation 01/19 2315 Active Code Status 01/19 2315 Active TROPONIN LEVEL 01/19 2200 Complete EKG 01/19 2200 Active Add-on Test (ER Only) 01/19 2055 Active D-DIMER 01/19 1901 Complete TROPONIN LEVEL 01/19 1900 Complete HUMAN BETA HCG SCREEN 01/19 1900 Complete COMPREHENSIVE METABOLIC PANEL 01/19 1900 Complete CBC WITHOUT DIFFERENTIAL 01/19 1900 Complete EKG 01/19 1845 Active Laboratory Tests 01/19/182154: Troponin I < 0.01 01/19/181900: Anion Gap 9, Estimated GFR > 60, BUN/Creatinine Ratio 18.3, Glucose 159 H, Calcium 9.3, Total Bilirubin 0.2, AST 20, ALT 35, Alkaline Phosphatase 56, Troponin I < 0.01, Total Protein 6.6, Albumin 3.9, Globulin 2.7, Albumin/ Globulin Ratio 1.4, Total Beta HCG NEGATIVE, D-Dimer High Sensitivty 200, CBC w Diff NO MAN DIFF REQ, RBC 4.46, MCV 88.4, MCH 28.6, MCHC 32.4 L, RDW 13.5, MPV 7.2 L, Gran % 63.1, Lymphocytes % 24.2, Monocytes % 6.7, Eosinophils % 5.5 H, Basophils % 0.5, Absolute Granulocytes 4.9, Absolute Lymphocytes 1.9, Absolute Monocytes 0.5, Absolute Eosinophils 0.4, Absolute Basophils 0 Diagnostic Imaging: Viewed by Me: Radiology Read. Discussed w/RAD: Radiology Read. Radiology Impression: PATIENT: CHEVY LEÓN PRESENT AGE: 47 PATIENT ACCOUNT NO: [id number] : 72 LOCATION: [facility] ORDERING PHYSICIAN: Kofi FELICIANO SERVICE DATE: 01/19/18-1899 EXAM TYPE : RAD - XRY-CHEST XRAY, TWO VIEWS EXAMINATION: CHEST 2 VIEWS CLINICAL INFORMATION: Chest pain. COMPARISON: 01/12/2018. TECHNIQUE: PA and lateral views of the chest were obtained. FINDINGS: The cardiac silhouette is not enlarged. Intact midline sternal wires are present. The mediastinal and hilar contours are unremarkable. There are neither pleural effusions nor pneumothoraces. There are no consolidations. The osseous structures are unremarkable. IMPRESSION: No evidence for acute disease. DICTATED BY: Alan Pete MD DATE/TIME DICTATED:1922 OPTOMECHANICAL ENGINEER:GHANSHYAM DATE/TIME TRANSCRIBED:01/19/181922 CONFIDENTIAL, DO NOT COPY WITHOUT APPROPRIATE AUTHORIZATION. <Electronically signed in Other Vendor System> SIGNED BY: Alan Pete MD 01/19/181927 Initial ED EKG: normal sinus rhythm, rate (91), nonspecific ST T wave chg Repeat EKG: unchanged (Koif Mcgee) Departure Departure Disposition: STILL A PATIENT Condition: Stable Clinical Impression Primary Impression: Chest pain with high risk for cardiac etiology Referrals: Jez Santana MD (PCP/Family) Departure Forms: Customer Survey General Discharge Information Observation Note Spoke With: Anil Goff MD Physician Advisor Notified: JUAN PABLO MITTAL DO Place Patient In: Non-ED OBS Care Area Rationale for Observation: My rational for observation is as follows . Patient will require cardiac telemetry. Cardiac consultation. SERIAL troponins. Possible stress test. High risk. Patient still actively having chest pain here in the emergency room. (Kofi Mcgee) PA/WARP TIER Co-Sign Statement Statement: ED Attending supervision documentation- x I saw and evaluated the patient. I have also reviewed all the pertinent lab results and diagnostic results. I agree with the findings and the plan of care as documented in the PA's/WARP TIER's documentation. chest pain syndrome [] I have reviewed the ED Record and agree with the PA's/WARP TIER's documentation. [] Additions or exceptions (if any) to the PAs/WARP TIER's note and plan are summarized below: [] (Anu LIVE,Yoshi) Critical Care Note Critical Care Note Critical Care Time: 30-74 min (35) (Kofi Mcgee)
--- NOTE | 2018-01-19 23:46 | History & Physical ---
Patrick LIVE,[facility] 01/19/18 5256: General Information and HPI MD Statement: I have seen and personally examined CHEVY LEÓN and documented this H&P. The patient is a 47 year old F who presented with a patient stated chief complaint of [chest pain]. Source of Information: patient Exam Limitations: no limitations History of Present Illness: 47-year-old female with a past medical history of cad s/p cabg 2000, htn, hld, asthma, anxiety/depression/ptsd, endometriosis presenting for chest pain with radiation. The patient states that she was seen in the emergency department last week chest pain. States that she received a lot of which helped her pain and was sent home after clearance by cardiology. The patient states that she continued to have the chest pain however today at dinnertime the patient started having 10 out 10 pain which was severe enough to make her cry. The patient states that currently her pain is a 10. States that the pain is sharp pain on the medial aspect of her sternum. States that it radiates to the back, radiates down her arm, radiates to her throat. She states that she took ibuprofen and nitroglycerin without any relief. States that she has been more active today doing errands, walking up and down stairs as she limits on the second floor, taking care of the dogs and the kids. The patient does endorse heartburn, dizziness, and palpitations which she states is chronic. He states that the pain is worse when she is stressed and is better when she leaned forward earlier during exam. Of note the patient states that this pain is very similar to the same in 2001 is found to have ACS. The patient states that time she had negative troponins and EKG in the reason why she had ACS was because she had a exercise stress test and had a cardiac arrest. She denies any headaches, lightheadedness, or vision changes. She states that she does have a significant family history of cardiac disease. Allergies/Medications Allergies: Coded Allergies: No Known Allergies (08/06/16) Past History Travel History Traveled to [place] past 21 day No Medical History Neurological: migraine, ?COMPLICATED MIGRAINES EENT: NONE Cardiovascular: CAD, hypertension, hyperlipidemia, myocardial infarction Respiratory: asthma Gastrointestinal: NONE Hepatic: cholelithiasis Renal: NONE Musculoskeletal: NONE Psychiatric: anxiety, depression, PTSD Endocrine: NONE Blood Disorders: NONE Cancer(s): NONE FINAL FINISHER/Reproductive: endometriosis History of MRSA: No History of VRE: No History of CDIFF: No Influenza Vaccine: 08/22/17 Surgical History Surgical History: appendectomy, CABG, cholecystectomy, hysterectomy, removal of sinus polyps, hysterectomy and oopherectomy of right ovary Past Family/Social History Family History Relations & Conditions if any MOTHER FH: myocardial infarction, Onset: at 53. FATHER FH: CAD (coronary artery disease) FH: CHF (congestive heart failure) FH: diabetes mellitus FH: myocardial infarction Relation not specified for: FH: myocardial infarction Psychosocial History Who Do You Live With? spouse, child Services at Home: None Primary Language: Fijian Functional Ability ADLs Independent: dressing, eating, toileting, bathing. Ambulation: independent IADLs Independent: shopping, housework, finances, food prep, telephone, transportation , medication admin. Review of Systems Review of Systems Constitutional: Reports: see HPI. Cardiovascular: Reports: chest pain, palpitations. GI: Reports: see HPI (GERD). Neurological/Psychological: Reports: see HPI (dizzyness). Exam & Diagnostic Data Last 24 Hrs of Vital Signs/I&O Vital Signs Date Time Temp Pulse Resp B/P B/P Pulse O2 O2 Flow FiO2 Mean Ox Delivery Rate 01/20 1311 98.0 76 20 112/62 94 Room Air 01/20 1029 98.2 80 18 109/55 01/20 1029 98.2 80 18 109/55 03/ 0633 98.2 80 18 109/55 96 01/20 0633 98.2 80 18 109/55 96 Room Air 01/20 0558 80 109/55 01/20 0542 98.2 80 18 109/55 96 Room Air 01/20 0443 73 20 116/57 96 Room Air 01/20 0339 68 20 122/73 97 Room Air 01/20 0002 83 20 128/76 96 Room Air 01/19 2349 80 115/63 01/19 2300 98.2 80 20 119/84 97 Room Air 01/19 1906 97.5 89 18 129/79 97 Room Air Intake & Output 01/20 1600 03/01 0800 01/20 0000 Intake Total 120 200 Output Total Balance 120 200 Intake, Oral 120 200 Patient 200 lb 200 lb Weight Weight Estimated Measurement Method Physical Exam General Appearance Alert, Oriented X3, Cooperative HEENT no jvd Cardiovascular Regular Rate, Normal S1, Normal S2, nontender to palpation Lungs Clear to Auscultation, Normal Air Movement Abdomen Normal Bowel Sounds, Soft, No Tenderness Extremities 2+ radial pulses Last 24 Hrs of Labs/Clay[place]: Laboratory Tests 01/20/18 0541: Anion Gap 13, Estimated GFR > 60, BUN/Creatinine Ratio 14.3, Troponin I < 0.01, Triglycerides 140, Cholesterol 122, LDL Cholesterol, Calc 56 L, HDL Cholesterol 38 L, Cholesterol/HDL Ratio 3, CBC w Diff NO MAN DIFF REQ, RBC 4.23, MCV 88.4, MCH 29.3, MCHC 33.1, RDW 13.8, MPV 7.0 L, Gran % 59.7, Lymphocytes % 27.5, Monocytes % 6.1, Eosinophils % 6.2 H, Basophils % 0.5, Absolute Granulocytes 4.6, Absolute Lymphocytes 2.1, Absolute Monocytes 0.5, Absolute Eosinophils 0.5, Absolute Basophils 0 01/19/18 2155: Troponin I < 0.01 01/19/18 1901: Anion Gap 9, Estimated GFR > 60, BUN/Creatinine Ratio 18.3, Glucose 159 H, Calcium 9.3, Total Bilirubin 0.2, AST 20, ALT 35, Alkaline Phosphatase 56, Troponin I < 0.01, Total Protein 6.6, Albumin 3.9, Globulin 2.7, Albumin/ Globulin Ratio 1.4, Total Beta HCG NEGATIVE, D-Dimer High Sensitivty 200, CBC w Diff NO MAN DIFF REQ, RBC 4.46, MCV 88.4, MCH 28.6, MCHC 32.4 L, RDW 13.5, MPV 7.2 L, Gran % 63.1, Lymphocytes % 24.2, Monocytes % 6.7, Eosinophils % 5.5 H, Basophils % 0.5, Absolute Granulocytes 4.9, Absolute Lymphocytes 1.9, Absolute Monocytes 0.5, Absolute Eosinophils 0.4, Absolute Basophils 0 Assessment/Plan Assessment: A: 47-year-old female with a past medical history of cad s/p cabg 2000, htn, hld, asthma, anxiety/depression/ptsd, endometriosis presenting for chest pain currently of unknown origin with negative troponins and ekg at this time P: #Chest pain trop <.01 x2 -Currently nothing by mouth in case of cardiac testing/procedure -Troponin and EKG at 6 AM to rule out ACS -Continue IV Dilaudid for pain control #hx of cad s/p cabg -Continue metoprolol, atorvastatin, isosorbide nitrate, #htn -Continue lisinopril #mental health -Continue sertraline, Xanax, trazodone, gabapentin #asthma -Continue Symbicort, albuterol #dvt prophylaxis heparin SC #FULL CODE As Ranked By This Provider Problem List: 1. Chest pain Core Measures/Misc (08/08) Acute Coronary Syndrome ACS Diagnosis: No Congestive Heart Failure Congestive Heart Failure Diagnosis No Cerebrovascular Accident CVA/TIA Diagnosis: No VTE (View Protocol) VTE Risk Factors Acute Medical Illness No Mechanical VTE Prophylaxis d/t Other No VTE Pharm Prophylaxis d/t NA PharmProphylax ordered Sepsis (View protocol) Sepsis Present: No Rhona Lucerozaid 01/20/18 0452: General Information and HPI Allergies/Medications Home Med list Albuterol Sulfate (Proair Hfa) 90 MCG HFA.AER.AD 2 PUF INH Q4H PRN RESP. ( Reported) Alprazolam 0.5 MG TABLET 1 TAB PO BIDP PRN ANXIETY (Reported) Aspirin (Ecotrin*) 81 MG TABLET.DR 1 TAB PO DAILY HEART/BLOOD (Reported) Brexpiprazole (Rexulti) 2 MG TABLET 1 TAB PO QHS MENTAL HEALTH (Reported) Budesonide/Formoterol Fumarate (Symbicort 80-4.5 Mcg Inhaler) 80 MCG-4.5 MCG/ ACTUATION HFA.AER.AD 2 PUF INH BID RESP. (Reported) Diazepam (Valium) 2 MG TABLET 1 TAB PO BID PRN SPASM Exenatide Microspheres (Bydureon Pen) 2 MG/0.65 ML PEN.INJCTR 2 MG SC QW DIABETES (Reported) Gabapentin (Neurontin) 300 MG CAPSULE 1 CAP PO TID ANXIETY (Reported) Isosorbide Mononitrate (Isosorbide Mononitrate ER) 30 MG TAB.ER.24H 1 TAB PO QAM HEART (Reported) Lisinopril 5 MG TABLET 1 TAB PO DAILY Hypertension/CHF Metformin HCl 1,000 MG TABLET 1 TAB PO BID DIABETES (Reported) Metoprolol Succinate 100 MG TAB.ER.24H 1 TAB PO DAILY HEART/BP (Reported) Multivitamin (Multiple Vitamins) 1 EACH TABLET 1 TAB PO DAILY SUPPLEMENT ( Reported) NOT TAKEN IN HOSPITAL Nitroglycerin (Nitrostat) 0.4 MG TAB.SUBL 1 TAB SL AD PRN CHEST PAIN chest pain - may repeat x 3 times every 5 minutes, call Prazosin HCl 2 MG CAPSULE 2 CAP PO QPM SLEEP (Reported) Propranolol HCl 20 MG TABLET 1 TAB PO BID PRN ANXIETY (Reported) Rosuvastatin Calcium (Crestor) 40 MG TABLET 1 TAB PO DAILY CHOLESTEROL ( Reported) Sertraline HCl (Zoloft) 100 MG TABLET 2 TAB PO DAILY DEPRESSION (Reported) Trazodone HCl 50 MG TABLET 2 TAB PO QPM PRN SLEEP (Reported) Varenicline Tartrate (Chantix) 1 MG TABLET 1 TAB PO BID SMOKING CESSATION ( Reported) Zolpidem Tartrate (Ambien) 10 MG TABLET 1 TAB PO QPM SLEEP (Reported) Resident Review Statement Resident Statement: examined this patient, discussed with manager internal, agreed with manager internal, amended to note Other Findings: Ms León is a 47-year-old w/ a PMHx of [place] ( 17 years ago) status post CABG with single-vessel disease in 2000, hyperlipidemia, asthma, anxiety, depression, asthma, strong family history of coronary artery disease in mother and father presented to the ER with a chief concern of nonexertional left-sided chest pain radiating to left arm, jaw that began the p.m. of presentation. After the symptoms began, she contacted Dr. Goff who recommended be evaluated at the emergency room in [facility] after symptoms did not resolve upon taking nitroglycerin at home. Symptoms started just prior to her dinner, pain located in the left side of the chest, with radiation to her left jaw, left arm, back worse on deep inspiration, and improved briefly upon bending forward. Severity pain 10/10, improved in the ED after receiving morphine, but has been requesting IV Dilaudid since she had improvement in symptoms 1 week ago when she presented with similar symptoms to the ED. She did not have any nausea, vomiting diaphoresis, lightheadedness, vision changes, abdominal pain. At the time of admission, vitals temperature 97.5, pulse rate 89, respirations 18, blood pressure 129/79, respiration 97% on room air. On examination, she continued to have chest discomfort, but appeared comfortable. No reproducible pain. Heart and lung examination within normal limits. No JVD. Pulses were normal. No abdominal tenderness. No neurological deficits. Pertinent lab findings-WBC 7.7, hemoglobin 12.8, platelets 276. Electrolytes sodium 137, potassium 4.2. BUN 11, creatinine 0.6. Troponin 0.01, 0.01. D- dimer 200. EKG revealed normal sinus rhythm, with no ST-T wave inversions or depressions. Last echocardiogram that was done revealed apical hypokinesis, left ventricular ejection fraction of 50%. Etiology in her case is likely multifactorial, with anxiety contributing to worsening symptoms. Since she has chest pain, acute coronary syndrome needs to be ruled out. Serial cardiac enzymes and electrocardiograms to be obtained. Other differentials such as aortic aneurysm, pericarditis are to be considered, which could be ruled out. Since she has a family history of coronary artery disease and stenosis of coronary artery she has to be monitored for at least 24 hours on telemetry floor. Plan: 1. Chest pain-acute coronary syndrome needs to be ruled out. Serial cardiac enzymes have been negative, with no new EKG changes. Defer the decision to get an echocardiogram and stress test to the hat band attacher at this time. Nothing by mouth at this time. She was given aspirin, statin and was ordered a beta susana. For her chest pain, Imdur were to be continued. She was started on small dose of intravenous Dilaudid, for severe pain. 2. Anxiety, depression-continue her home medications. 3. History of asthma-continue Symbicort. Housekeeping- 1. DVT prophylaxis-subcutaneous heparin 2. GI prophylaxis-Protonix. 3. Pain pathway-morphine, IV Dilaudid. 4. Nothing by mouth, if stress test needs to be done. 5. Cardiology-Dr. Goff.
[2018-01-20] MEDS ORDERED: BYDUREON P2 MG/0.65 SC (01:36)
[2018-01-20 05:57] LABS: ABSOLUTE BASOPHIL COUNT 0 /CUMM (0.0-0.2); ABSOLUTE EOSINOPHIL COUNT 0.5 /CUMM (0.0-0.7); ABSOLUTE GRANULOCYTE CT 4.6 /CUMM (1.4-6.5); ABSOLUTE LYMPH COUNT 2.1 /CUMM (1.2-3.4); ABSOLUTE MONOCYTE COUNT 0.5 /CUMM (0.10-0.60); BASOPHIL % 0.5 % (0.0-2.0); EOSINOPHIL % 6.2 % (0-5); GRANULOCYTE % 59.7 % (42.2-75.2); HEMATOCRIT 37.4 % (37-47); MEAN CORPUSCULAR HGB 29.3 PG (27.0-31.0); MEAN CORPUSCULAR HGB CONC 33.1 G/DL (33.0-37.0); MEAN CORPUSCULAR VOLUME 88.4 FL (81.0-99.0); PLATELET COUNT 252 /CUMM (130-400); RBC DISTRIBUTION WIDTH 13.8 % (11.5-14.5); RED BLOOD CELL CT 4.23 /CUMM (4.20-5.40); WHITE BLOOD CELL COUNT 7.7 /CUMM (4.8-10.8)
[2018-01-20 06:33] VITALS: BP 109/55
--- NOTE | 2018-01-20 08:17 | PN-Observation ---
Observation Note Observation Note _ I have personally examined CHEVY LEÓN. her disposition is uncertain at this time. Before a determination can be made, she requires continued observation for the following reasons [CHEST PAIN]. Assessment/Plan Medical Assessment: The patient is a 47-year-old woman past medical history of coronary artery disease a status post CABG (2000), PTSD, agoraphobia, frequent episode of complex migraine, and endometriosis who presents with an episode of atypical chest pain radiating to her back and upper neck. She is being evaluated for atypical chest pain and has had negative serial EKGs and troponins. Chest x-ray showed no widening of the mediastinum and also was negative for any acute pulmonary findings. He had an echocardiogram in September 2017 that showed low normal ventricular systolic function with ejection fraction estimated at 50% and apical hypokinesis. She also reports that she has had a negative stress test with her elevating grader operator Dr. Goff in 2016. This Particular episode of chest pain appears to be musculoskeletal versus sharp in nature and reproducible on palpation and has a pleuritic component. However will await cardiology review about possible discharge and continued outpatient workup. Problem list 1. Atypical chest pain probably due to costochondritis * Serial EKGs showed no ST changes and serial troponins have been negative. * Patient had a recent echocardiogram so no need to repeat at this time * Awaiting cardiology's input with regards to timing of stress test either inpatient in this admission or as an outpatient. * Continue home cardiac medications including Imdur, metoprolol, aspirin and pravastatin * Continue IV Dilaudid for severe pain 2. Anxiety and depression * Continue Zoloft and Xanax twice a day when necessary for anxiety 3. History of asthma * Continue Symbicort. 4. DVT prophylaxis * Subcutaneous heparin 5000 units every 8 hours CODE STATUS Full code addendum 1409 pm, 01/20/18-After reviewing patient at this time the patient's chest pain not totally resolved. After discussion with covering elevating grader operator Dr. Newton, who determined the patient could be discharged to continue her current home medications and follow-up with her primary elevating grader operator Dr. Goff for an outpatient stress test. Problem List: 1. Chest pain DVT/Prophylaxis: pharmacological Discharge Plan Discharge Disposition: home Stable for Discharge? Yes Subjective Follow-up For: Chest pain Complaints: pain scale (0-10) (INTERMITTENT 7/10) Subjective: Patient complains of intermittent chest pain which is now improving but still 7/ 10 intensity. The pain is located in the left lower rib area and radiates all the way to the back and scapular region. It is sharp in intensity with no aggravating and relieving factors. The pain is reproducible with palpation. She denies lightheadedness, shortness of breath or palpitations. She denies nausea vomiting or abdominal pain. Review of Systems Constitutional: Denies: see HPI, chills, fever. EENTM: Denies: nasal congestion. Cardiovascular: Reports: chest pain. Denies: edema, orthopena, palpitations, syncope. Respiratory: Denies: cough, short of breath, sputum production. Gastrointestinal: Denies: abdominal pain, diarrhea, nausea. Genitourinary: Denies: dysuria, hematuria. Objective Last 24 Hrs of Vital Signs/I&O Vital Signs Date Time Temp Pulse Resp B/P B/P Pulse O2 O2 Flow FiO2 Mean Ox Delivery Rate 01/20 1311 98.0 76 20 112/62 94 Room Air 01/20 1029 98.2 80 18 109/55 03/ 1029 98.2 80 18 109/55 03/ 0633 98.2 80 18 109/55 96 01/20 0633 98.2 80 18 109/55 96 Room Air 01/20 0558 80 109/55 03 0542 98.2 80 18 109/55 96 Room Air 01/20 0443 73 20 116/57 96 Room Air 01/20 0339 68 20 122/73 97 Room Air 01/20 0002 83 20 128/76 96 Room Air 01/19 2349 80 115/63 01/19 2300 98.2 80 20 119/84 97 Room Air 01/19 1906 97.5 89 18 129/79 97 Room Air Intake & Output 01/20 1600 01/20 0800 01/20 0000 Intake Total 120 200 Output Total Balance 120 200 Intake, Oral 120 200 Patient 200 lb 200 lb Weight Weight Estimated Measurement Method Physical Exam General Appearance: Alert, Oriented X3, Cooperative, No Acute Distress Skin: No Rashes Skin Temp/Moisture Exam: Warm/Dry Sepsis Skin Exam (color): Normal for Ethnicity HEENT: Atraumatic, PERRLA, EOMI, Mucous Membr. moist/pink Neck: Supple, No JVD, No thryomegaly Lymphatic: Cervical nl Cardiovascular: Regular Rate, Normal S1, Normal S2, No Murmurs Lungs: Clear to Auscultation, Normal Air Movement Abdomen: Normal Bowel Sounds, Soft, No Tenderness, No Hepatospenomegaly, No Masses Neurological: Normal Speech, Strength at 5/5 X4 Ext, Normal Tone Extremities: No Cyanosis, No Edema, Normal Pulses Vascular: Normal Pulses, Pulses Symmetrical Sepsis Peripheral Pulse Location: Dorsalis Pedis Current Medications: Current Medications Sig/Juan Start time Last Medication Dose Route Stop Time Status Admin Acetaminophen 0 .STK-MED ONE 01/19 2102 DC PO Acetaminophen 650 MG ONCE ONE 01/19 2000 DC 01/19 PO 01/19 Albuterol Sulfate 2 PUF Q4H PRN 01/20 0330 AC INH Alprazolam 0 .STK-MED ONE 01/20 1030 DC PO Alprazolam 0.5 MG BID PRN 01/20 0330 AC 01/20 PO 01/27 0329 1029 Aspirin 0 .STK-MED ONE 01/20 0056 DC PO Aspirin 325 MG ONCE ONE 01/19 2345 DC 01/20 PO 01/19 2346 0053 Aspirin Buffered 81 MG DAILY 01/20 1000 AC 01/20 PO 1029 Atorvastatin Calcium 40 MG 1700 01/20 1700 AC PO Atorvastatin Calcium 40 MG DAILY 01/20 0330 DC PO Budesonide/ 2 PUF BID 01/20 1000 AC 01/20 Formoterol Fumarate INH 1029 Gabapentin 300 MG TID 01/20 1000 AC 01/20 PO 1029 Heparin Sodium 0 .STK-MED ONE 01/20 0606 DC (Porcine) .ROUTE Heparin Sodium 5,000 UNIT Q8 01/20 0600 AC 01/20 (Porcine) SC 0606 Hydromorphone HCl 0.2 MG BID 01/20 2200 AC IV Hydromorphone HCl 0 .STK-MED ONE 01/20 0449 DC .ROUTE Hydromorphone HCl 0.2 MG Q8P PRN 01/20 0330 DC 01/20 IV 0448 Isosorbide 30 MG QAM 01/20 1000 AC 01/20 Mononitrate PO 1029 Lisinopril 5 MG DAILY 01/20 1000 AC 01/20 PO 1029 Metoprolol Succinate 100 MG 1700 01/20 1700 AC PO Metoprolol Succinate 100 MG DAILY 01/20 1000 DC PO Metoprolol Tartrate 25 MG ONCE ONE 01/20 0500 DC PO 01/20 0501 Morphine Sulfate 0 .STK-MED ONE 01/20 1030 DC .ROUTE Morphine Sulfate 0 .STK-MED ONE 01/20 0342 DC .ROUTE Morphine Sulfate 2 MG Q6P PRN 01/20 0330 AC 01/20 IV 1029 Morphine Sulfate 0 .STK-MED ONE 01/19 2145 DC .ROUTE Morphine Sulfate 4 MG ONCE ONE 01/19 2130 DC 01/19 IM 01/19 Nitroglycerin 0 .STK-MED ONE 01/19 2340 DC SL Nitroglycerin 0.4 MG ONCE ONE 01/19 2315 DC 01/19 SL 01/19 2316 234 Sertraline HCl 200 MG DAILY 01/20 1000 AC 01/20 PO 1029 Trazodone HCl 100 MG QPM PRN 01/20 0330 AC PO Last 24 Hrs of Labs/Mics: Laboratory Tests 01/20/18 0541: Anion Gap 13, Estimated GFR > 60, BUN/Creatinine Ratio 14.3, Troponin I < 0.01, Triglycerides 140, Cholesterol 122, LDL Cholesterol, Calc 56 L, HDL Cholesterol 38 L, Cholesterol/HDL Ratio 3, CBC w Diff NO MAN DIFF REQ, RBC 4.23, MCV 88.4, MCH 29.3, MCHC 33.1, RDW 13.8, MPV 7.0 L, Gran % 59.7, Lymphocytes % 27.5, Monocytes % 6.1, Eosinophils % 6.2 H, Basophils % 0.5, Absolute Granulocytes 4.6, Absolute Lymphocytes 2.1, Absolute Monocytes 0.5, Absolute Eosinophils 0.5, Absolute Basophils 0 01/19/18 2155: Troponin I < 0.01 01/19/18 1901: Anion Gap 9, Estimated GFR > 60, BUN/Creatinine Ratio 18.3, Glucose 159 H, Calcium 9.3, Total Bilirubin 0.2, AST 20, ALT 35, Alkaline Phosphatase 56, Troponin I < 0.01, Total Protein 6.6, Albumin 3.9, Globulin 2.7, Albumin/ Globulin Ratio 1.4, Total Beta HCG NEGATIVE, D-Dimer High Sensitivty 200, CBC w Diff NO MAN DIFF REQ, RBC 4.46, MCV 88.4, MCH 28.6, MCHC 32.4 L, RDW 13.5, MPV 7.2 L, Gran % 63.1, Lymphocytes % 24.2, Monocytes % 6.7, Eosinophils % 5.5 H, Basophils % 0.5, Absolute Granulocytes 4.9, Absolute Lymphocytes 1.9, Absolute Monocytes 0.5, Absolute Eosinophils 0.4, Absolute Basophils 0
--- NOTE | 2018-01-20 14:01 | Cons- Cardiology ---
General Information and HPI Consulting Request Date of Consult: 01/20/18 Requested By: Anil Goff MD Reason for Consult: Chest pain History of Present Illness: Ms Carvalho is a 47-year-old past medical history of coronary artery disease status post [place] 17 years ago s/p CABG with single-vessel disease in 2000, hyperlipidemia, asthma, anxiety, depression, asthma, DM presents with chief complaint of nonexertional left-sided chest pain radiating to left arm, jaw that began the p.m. of presentation. After the symptoms began, she contacted Dr. Goff who recommended be evaluated at the emergency room in [facility] after symptoms did not resolve upon taking nitroglycerin at home. On admission, vitals 97.5, pulse rate 89, respirations 18, blood pressure 129/79 , respiration 97% on room air. Pertinent lab findings-WBC 7.7, hemoglobin 12.8, platelets 276. Electrolytes sodium 137, potassium 4.2. BUN 11, creatinine 0.6. Troponin 0.01, 0.01. D- dimer 200. EKG revealed normal sinus rhythm, with no ST-T wave inversions or depressions. Last echocardiogram that was done revealed apical hypokinesis, left ventricular ejection fraction of 50%. CXR IMPRESSION: No evidence for acute disease. Troponin and EKG x3 are negative Allergies/Medications Allergies: Coded Allergies: No Known Allergies (08/06/16) Home Med List: Albuterol Sulfate (Proair Hfa) 90 MCG HFA.AER.AD 2 PUF INH Q4H PRN RESP. ( Reported) Alprazolam 0.5 MG TABLET 1 TAB PO BIDP PRN ANXIETY (Reported) Aspirin (Ecotrin*) 81 MG TABLET.DR 1 TAB PO DAILY HEART/BLOOD (Reported) Brexpiprazole (Rexulti) 2 MG TABLET 1 TAB PO QHS MENTAL HEALTH (Reported) Budesonide/Formoterol Fumarate (Symbicort 80-4.5 Mcg Inhaler) 80 MCG-4.5 MCG/ ACTUATION HFA.AER.AD 2 PUF INH BID RESP. (Reported) Diazepam (Valium) 2 MG TABLET 1 TAB PO BID PRN SPASM Exenatide Microspheres (Bydureon Pen) 2 MG/0.65 ML PEN.INJCTR 2 MG SC QW DIABETES (Reported) Gabapentin (Neurontin) 300 MG CAPSULE 1 CAP PO TID ANXIETY (Reported) Isosorbide Mononitrate (Isosorbide Mononitrate ER) 30 MG TAB.ER.24H 1 TAB PO QAM HEART (Reported) Lisinopril 5 MG TABLET 1 TAB PO DAILY Hypertension/CHF Metformin HCl 1,000 MG TABLET 1 TAB PO BID DIABETES (Reported) Metoprolol Succinate 100 MG TAB.ER.24H 1 TAB PO DAILY HEART/BP (Reported) Multivitamin (Multiple Vitamins) 1 EACH TABLET 1 TAB PO DAILY SUPPLEMENT ( Reported) NOT TAKEN IN HOSPITAL Nitroglycerin (Nitrostat) 0.4 MG TAB.SUBL 1 TAB SL AD PRN CHEST PAIN chest pain - may repeat x 3 times every 5 minutes, call Prazosin HCl 2 MG CAPSULE 2 CAP PO QPM SLEEP (Reported) Propranolol HCl 20 MG TABLET 1 TAB PO BID PRN ANXIETY (Reported) Rosuvastatin Calcium (Crestor) 40 MG TABLET 1 TAB PO DAILY CHOLESTEROL ( Reported) Sertraline HCl (Zoloft) 100 MG TABLET 2 TAB PO DAILY DEPRESSION (Reported) Trazodone HCl 50 MG TABLET 2 TAB PO QPM PRN SLEEP (Reported) Varenicline Tartrate (Chantix) 1 MG TABLET 1 TAB PO BID SMOKING CESSATION ( Reported) Zolpidem Tartrate (Ambien) 10 MG TABLET 1 TAB PO QPM SLEEP (Reported) Past History Travel History Traveled to [place] past 21 day No Medical History Blood Transfusion Hx: No Neurological: migraine, ?COMPLICATED MIGRAINES EENT: NONE Cardiovascular: CAD, hypertension, hyperlipidemia, myocardial infarction Respiratory: asthma Gastrointestinal: NONE Hepatic: cholelithiasis Renal: NONE Musculoskeletal: NONE Psychiatric: anxiety, depression, PTSD Endocrine: NONE Blood Disorders: NONE 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 FATHER FH: CAD (coronary artery disease) FH: CHF (congestive heart failure) FH: diabetes mellitus FH: myocardial infarction Relation not specified for: FH: myocardial infarction Psychosocial History Who Do You Live With? spouse, child Services at Home: None Primary Language: Senegalese Smoking Status: Never Smoked Functional Ability ADLs Independent: dressing, eating, toileting, bathing. Ambulation: independent IADLs Independent: shopping, housework, finances, food prep, telephone, transportation , medication admin. Exam & Diagnostic Data Vital Signs and I&O Vital Signs Date Time Temp Pulse Resp B/P B/P Pulse O2 O2 Flow FiO2 Mean Ox Delivery Rate 01/20 1311 98.0 76 20 112/62 94 Room Air 01/20 1029 98.2 80 18 109/55 / 1029 98.2 80 18 109/55 03/ 0633 98.2 80 18 109/55 96 01/20 0633 98.2 80 18 109/55 96 Room Air 01/20 0558 80 109/55 01/20 0542 98.2 80 18 109/55 96 Room Air 01/20 0443 73 20 116/57 96 Room Air 01/20 0339 68 20 122/73 97 Room Air 01/20 0002 83 20 128/76 96 Room Air 01/19 2349 80 115/63 01/19 2300 98.2 80 20 119/84 97 Room Air 01/19 1906 97.5 89 18 129/79 97 Room Air Intake & Output 01/20 1600 01/20 0801/20 0000 01/19 1600 01/19 0800 01/19 0000 Intake Total 120 200 Output Total Balance 120 200 Intake, Oral 120 200 Patient 90.718 kg 90.718 kg Weight Weight Estimated Measurement Method Physical Exam: Gen. no acute distress Cardiovascular S1-S2 regular, no murmur Lung Clear bilateral, no wheeze Abdomen soft, positive bowel sounds LE peripheral pulses palpable, no pedal edema Labs/[place] Results: Laboratory Tests 01/20 01/19 0541 2155 Chemistry Sodium (137 - 145 mmol/L) 145 Potassium (3.5 - 5.1 mmol/L) 4.1 Chloride (98 - 107 mmol/L) 103 Carbon Dioxide (22 - 30 mmol/L) 29 Anion Gap (5 - 16) 13 BUN (7 - 17 mg/dL) 10 Creatinine (0.5 - 1.0 mg/dL) 0.7 Estimated GFR (>60 ml/min) > 60 BUN/Creatinine Ratio (7 - 25 %) 14.3 Troponin I (< 0.11 ng/ml) < 0.01 < 0.01 Triglycerides (<150 mg/dL) 140 Cholesterol (<200 MG/DL) 122 LDL Cholesterol, Calc (65 - 129 mg/dL) 56 L HDL Cholesterol (40 - 60 mg/dL) 38 L Cholesterol/HDL Ratio (0.00 - 4.23 %) 3 Hematology CBC w Diff NO MAN DIFF REQ WBC (4.8 - 10.8 /CUMM) 7.7 RBC (4.20 - 5.40 /CUMM) 4.23 Hgb (12.0 - 16.0 G/DL) 12.4 Hct (37 - 47 %) 37.4 MCV (81.0 - 99.0 FL) 88.4 MCH (27.0 - 31.0 PG) 29.3 MCHC (33.0 - 37.0 G/DL) 33.1 RDW (11.5 - 14.5 %) 13.8 Plt Count (130 - 400 /CUMM) 252 MPV (7.4 - 10.4 FL) 7.0 L Gran % (42.2 - 75.2 %) 59.7 Lymphocytes % (20.5 - 51.1 %) 27.5 Monocytes % (1.7 - 9.3 %) 6.1 Eosinophils % (0 - 5 %) 6.2 H Basophils % (0.0 - 2.0 %) 0.5 Absolute Granulocytes (1.4 - 6.5 /CUMM) 4.6 Absolute Lymphocytes (1.2 - 3.4 /CUMM) 2.1 Absolute Monocytes (0.10 - 0.60 /CUMM) 0.5 Absolute Eosinophils (0.0 - 0.7 /CUMM) 0.5 Absolute Basophils (0.0 - 0.2 /CUMM) 0 01/19 1901 Chemistry Sodium (137 - 145 mmol/L) 137 Potassium (3.5 - 5.1 mmol/L) 4.2 Chloride (98 - 107 mmol/L) 102 Carbon Dioxide (22 - 30 mmol/L) 26 Anion Gap (5 - 16) 9 BUN (7 - 17 mg/dL) 11 Creatinine (0.5 - 1.0 mg/dL) 0.6 Estimated GFR (>60 ml/min) > 60 BUN/Creatinine Ratio (7 - 25 %) 18.3 Glucose (65 - 99 mg/dL) 159 H Calcium (8.4 - 10.2 mg/dL) 9.3 Total Bilirubin (0.2 - 1.3 mg/dL) 0.2 AST (14 - 36 U/L) 20 ALT (9 - 52 U/L) 35 Alkaline Phosphatase (<127 U/L) 56 Troponin I (< 0.11 ng/ml) < 0.01 Total Protein (6.3 - 8.2 g/dL) 6.6 Albumin (3.5 - 5.0 g/dL) 3.9 Globulin (1.9 - 4.2 gm/dL) 2.7 Albumin/Globulin Ratio (1.1 - 2.2 %) 1.4 Total Beta HCG (NEGATIVE) NEGATIVE Coagulation D-Dimer High Sensitivty (0 - 243 ng/ml) 200 Hematology CBC w Diff NO MAN DIFF REQ WBC (4.8 - 10.8 /CUMM) 7.7 RBC (4.20 - 5.40 /CUMM) 4.46 Hgb (12.0 - 16.0 G/DL) 12.8 Hct (37 - 47 %) 39.5 MCV (81.0 - 99.0 FL) 88.4 MCH (27.0 - 31.0 PG) 28.6 MCHC (33.0 - 37.0 G/DL) 32.4 L RDW (11.5 - 14.5 %) 13.5 Plt Count (130 - 400 /CUMM) 276 MPV (7.4 - 10.4 FL) 7.2 L Gran % (42.2 - 75.2 %) 63.1 Lymphocytes % (20.5 - 51.1 %) 24.2 Monocytes % (1.7 - 9.3 %) 6.7 Eosinophils % (0 - 5 %) 5.5 H Basophils % (0.0 - 2.0 %) 0.5 Absolute Granulocytes (1.4 - 6.5 /CUMM) 4.9 Absolute Lymphocytes (1.2 - 3.4 /CUMM) 1.9 Absolute Monocytes (0.10 - 0.60 /CUMM) 0.5 Absolute Eosinophils (0.0 - 0.7 /CUMM) 0.4 Absolute Basophils (0.0 - 0.2 /CUMM) 0 Diagnostic Data EKG Results Sinus rhythm, HR 74, no T or ST changes CXR Results FINDINGS: The cardiac silhouette is not enlarged. Intact midline sternal wires are present. The mediastinal and hilar contours are unremarkable. There are neither pleural effusions nor pneumothoraces. There are no consolidations. The osseous structures are unremarkable. IMPRESSION: No evidence for acute disease. Assessment/Plan Assessment/Plan 1- Coronary artery disease status post [place] 17 years ago s/p CABG with single- vessel disease in 2000 2- Hyperlipidemia 3- Anxiety and depression 4- DM 5- Chest pain with negaative trops and EKGx3-- pain resolved Recommendation 1- Plan for stress test as an outpatient 2- Contine home medication 3- Okay to discharge and follow up as outpatient Consult Acknowledgment - Thank you for your consult request.
--- NOTE | 2018-01-20 14:18 | Patient Discharge Instructions ---
Discharge Instructions General Discharge Information You were seen/treated for: Atypical Chest pain Watch for these problems: Worsening chest pain, shortness of breath, lightheadedness or fainting. Special Instructions: 1. Please follow-up with your primary care provider and production zone leader Dr. Goff within 1 week of discharge. 2. Follow up with printer slotter helper, Dr. Pagan within 1 week of discharge to evaluate retrosternal discomfort. Diet Continue normal diet: No Recommended Diet: Heart Healthy Activity Full Activity/No Limits: No Activity Self Limited: Yes Acute Coronary Syndrome Inclusion Criteria At DC or during hospital stay patient has or had the following: ACS DIAGNOSIS No Discharge Core Measures Meds if any: Prescribed or Continued at Discharge Meds if any: NOT Prescribed or Continued at Discharge Congestive Heart Failure Inclusion Criteria At DC or during hospital stay patient has or had the following: CHF DIAGNOSIS No Discharge Core Measures Meds if any: Prescribed or Continued at Discharge Meds if any: NOT Prescribed or Continued at Discharge Cerebrovascular accident Inclusion Criteria At DC or during hospital stay patient has or had the following: CVA/TIA Diagnosis No Discharge Core Measures Meds if any: Prescribed or Continued at Discharge Meds if any: NOT Prescribed or Continued at Discharge Venous thromboembolism Inclusion Criteria VTE Diagnosis No VTE Type NONE VTE Confirmed by (Test) NONE Discharge Core Measures - Per Current guidelines, there needs to be overlap - treatment for the first 5 days of Warfarin therapy. - If discharged on Warfarin prior to 5 days of - overlap therapy, the patient will need to be - assessed for post discharge needs including - *Post discharge parental anticoagulation - *Warfarin and/or parental anticoagulation education - *Follow up date to check INR post discharge At least 5 days overlap therapy as Inpatient No Meds if any: Prescribed or Continued at Discharge Note: Overlap Therapy is Warfarin and Anticoagulant Meds if any: NOT Prescribed or Continued at Discharge
[2018-01-20 15:48] VITALS: BP 108/74
== END 2018-01-20 15:40 ==
LOC: ERH 18:44 → ERHI 23:15 → ENRESERV 01-20 14:32 → ERHI 01-20 15:40
PROVIDERS: Internal Medicine Endocrinology, Diabetes & Metabolism; Physician Assistant Medical
DX: R07.89 Other chest pain (principal); F41.9 Anxiety disorder, unspecified; F32.9 Major depressive disorder, single episode, unspecified; F43.10 Post-traumatic stress disorder, unspecified; N80.9 Endometriosis, unspecified; I25.10 Atherosclerotic heart disease of native coronary artery without angina pectoris; Z95.1 Presence of aortocoronary bypass graft; I10 Essential (primary) hypertension; E78.5 Hyperlipidemia, unspecified; J45.909 Unspecified asthma, uncomplicated; G43.909 Migraine, unspecified, not intractable, without status migrainosus; I25.2 Old myocardial infarction; Z79.82 Long term (current) use of aspirin; E11.9 Type 2 diabetes mellitus without complications; Z79.84 Long term (current) use of oral hypoglycemic drugs
CPT/HCPCS: 6090; 71046; 82436; 93005; 93010; 96372; 96374; 96375; 96376; G0378; J1644; J3490; J7508